=== PATIENT | male | born 1955 | race Caucasian/White ===

== ENCOUNTER 2016-06-21 11:08 | Emergency (ER) | payer MEDICARE, BC ==
[2016-06-21] MEDS: Diph,Pert(Acell),Tet Vac 0.5 ML SYR IM ONE (12:00)
[2016-06-21 13:03] LABS: BASO % 0.3 % (0-6); EOS % 3.6 % (0-6); GRAN % 72.6 % (47-80); HEMATOCRIT 34.9 % (42.0-52.0); HEMOGLOBIN 11.4 gm/dl (14.0-18.0); LYMPH % 14.6 % (16-45); MEAN CELL VOLUME 87.9 fl (81-97); MEAN CORPUSCULAR HEMOGLOBIN 28.7 pg (27-33); MEAN CORPUSCULAR HGB CONC 32.7 g/dl (32-36); MEAN PLATELET VOLUME 10.1 fl (7.4-10.4); MONO % 8.9 % (0-9); PLATELET COUNT 137 K/uL (130-400); RED BLOOD COUNT 3.97 M/uL (4.40-5.70); RED CELL DISTRIBUTION WIDTH 15.5 % (11.5-14.5)
[2016-06-21 13:12] LABS: INR 1.52; PROTHROMBIN TIME (PATIENT) 17.2 SECONDS (9.5-12.1)
[2016-06-21 13:13] LABS: ANION GAP 12.8 (7-16); CARBON DIOXIDE 25.2 mmol/L (22-30); CREATININE 1.5 mg/dL (0.66-1.25)
--- NOTE | 2016-06-21 13:49 | Emergency Department Record ---
History of Present Illness - General Chief complaint: Extremity Problem Stated complaint: STEPPED ON NAIL Time Seen by Provider: 06/21/16 12:36 Source: Patient Mode of Arrival: Ambulatory Limitations: No limitations - History of Present Illness Initial comments: pt stepped on a small nail 2 days ago that went through his shoe. pulled it out. pt did not feel pain as he has neuropathy. today he noted swelling and erythema. he is diabetic and has previously lost a toe MD Complaint: Extremity swelling Onset/Timin -: Days(s) Location: Left, Foot History of Same: No Radiation: Distal Severity scale (1-10): 6 Quality: Aching Consistency: Constant Improves with: Rest Worsens with: Walking, Weight bearing Associated Symptoms: Denies other symptoms - Related Data Home Medications Medication Instructions Recorded Confirmed Last Taken Colchicine 0.6 mg PO QD tab 11/20/15 06/21/16 1 Day Ago Metformin HCl 1,000 mg PO BID tab 11/20/15 06/21/16 1 Day Ago Aspirin [Ecotrin] 325 mg PO DAILY 06/16/16 06/21/16 1 Day Ago Bumetanide 2 mg PO DAILY 06/16/16 06/21/16 1 Day Ago Insulin Glargine,Hum.rec.anlog 80 unit SQ DAILY 06/16/16 06/21/16 1 Day Ago [Tougavino Ferguson] Liraglutide [Victoza 2-Sascha] 1.2 mg SQ DAILY 06/16/16 06/21/16 1 Day Ago Previous Rx's Medication Instructions Recorded Blood Sugar Diagnostic [Blood 1 each MC BID #100 strip 02/27/15 Glucose Test Strip] Docusate Sodium [Colace] 100 mg PO QHS #20 cap 06/16/16 Hydrocodone/Acetaminophen [[place] 1 tab PO Q6H PRN #14 tab 06/16/16 5mg/325mg] Clindamycin HCl [Cleocin HCl] 300 mg PO TID #30 capsule 06/21/16 Allergies Allergy/AdvReac Type Severity Reaction Status Date / Time iodine Allergy Severe ANAPHYLAXIS Verified 06/21/16 11:23 erythromycin base Allergy Mild VOMITING Verified 06/21/16 11:23 [Erythromycin Base] Travel Screening - Travel/Exposure Within Last 30 Days Have you traveled within the last 30 days?: No - Travel/Exposure Within Last Year Have you traveled outside the [place] in the last year?: No - Additonal Travel Details Have you been exposed to anyone with a communicable illness?: No - Travel Symptoms Symptom Screening: None Review of Systems Reviewed: No additional complaints except as noted below Constitutional: Reports: As per HPI. Denies: Chills, Fever, Malaise, Night sweats, Weakness, Weight change Eyes: Reports: As per HPI. Denies: Eye discharge, Eye pain, Photophobia, Vision change ENT: Reports: As per HPI. Denies: Congestion, Dental pain, Ear pain, Epistaxis , Hearing loss, Throat pain Respiratory: Reports: As per HPI. Denies: Cough, Dyspnea, Hemoptysis, Stridor, Wheezes Cardiovascular: Reports: As per HPI. Denies: Arrhythmia, Chest pain, Dyspnea on exertion, Edema, Murmurs, Orthopnea, Palpitations, Paroxysmal nocturnal dyspnea, Rheumatic Fever, Syncope Endocrine: Reports: As per HPI. Denies: Fatigue, Heat or cold intolerance, Polydipsia, Polyuria Gastrointestinal: Reports: As per HPI. Denies: Abdominal pain, Constipation, Diarrhea, Hematemesis, Hematochezia, Melena, Nausea, Vomiting Genitourinary: Reports: As per HPI. Denies: Dysuria, Frequency, Hematuria, Incontinence, Retention, Testicular pain, Testicular mass, Urgency Musculoskeletal: Reports: As per HPI. Denies: Arthralgia, Back pain, Gout, Joint swelling, Myalgia, Neck pain Skin: Reports: As per HPI. Denies: Bruising, Change in color, Change in hair/ nails, Lesions, Pruritus, Rash Neurological: Reports: As per HPI. Denies: Abnormal gait, Confusion, Headache, Numbness, Paresthesias, Seizure, Tingling, Tremors, Vertigo, Weakness Psychiatric: Reports: As per HPI. Denies: Anxiety, Auditory hallucinations, Depression, Homicidal thoughts, Suicidal thoughts, Visual hallucinations Hematological/Lymphatic: Reports: As per HPI. Denies: Anemia, Blood Clots, Easy bleeding, Easy bruising, Swollen glands Past Medical History - SOCIAL HISTORY Smoking Status: Former smoker Alcohol Use: Rare Drug Use: None - RESPIRATORY Hx Respiratory Disorders: Yes Hx Bronchitis: Yes Hx Pneumonia: Yes Hx Pulmonary Embolism: Yes Hx Sleep Apnea: Yes Hx of CPAP: Yes - CARDIOVASCULAR Hx Cardio Disorders: Yes Hx Deep Vein Thrombosis: Yes (with blood clots to lungs) - NEURO Hx Neuro Disorders: Yes Hx Neuropathy: Yes - GI Hx GI Disorders: No - Hx Genitourinary Disorders: No - ENDOCRINE Hx Endocrine Disorders: Yes Hx Diabetes: Yes Hx Thyroid Disease: No - MUSCULOSKELETAL Hx Musculoskeletal Disorders: Yes Hx Arthritis: Yes Hx Gout: Yes - PSYCH Hx Psych Problems: No - HEMATOLOGY/ONCOLOGY Hx Hematology/Oncology Disorders: Yes Hx Clotting Problems: Yes (takes coumadin) Family Medical History Any Significant Family History?: Yes Hx Depression: Brother/Sister Hx Heart Disease: Father, Grandparents Physical Exam - General General Appearance: Alert, Oriented x3, Cooperative, No acute distress - Head Head exam: Normal inspection - Eye Eye exam: Normal appearance, PERRL, EOMI Pupils: Normal accommodation - ENT ENT exam: Normal exam, Mucous membranes moist, Normal external ear exam, Normal orophraynx, TM's normal bilaterally Ear exam: Normal external inspection. negative: External canal tenderness Nasal Exam: Normal inspection. negative: Discharge, Sinus tenderness Mouth exam: Normal external inspection, Tongue normal Teeth exam: Normal inspection. negative: Dental caries Throat exam: Normal inspection. negative: Tonsillar erythema, Tonsillar exudate - Neck Neck exam: Normal inspection, Full ROM. negative: Tenderness - Respiratory Respiratory exam: Normal lung sounds bilaterally. negative: Respiratory distress - Cardiovascular Cardiovascular Exam: Regular rate, Normal rhythm, Normal heart sounds - GI/Abdominal GI/Abdominal exam: Soft, Normal bowel sounds. negative: Tenderness - Rectal Rectal exam: Deferred - exam: Deferred - Extremities Extremities exam: Full ROM, Normal capillary refill, Pedal edema, Tenderness Image of Feet: 1 - puncture wound to foot 2 - swelling of foot and erythema - Back Back exam: Reports: Normal inspection, Full ROM. Denies: Muscle spasm, Rash noted, Tenderness - Neurological Neurological exam: Alert, CN II-XII intact, Normal gait, Oriented X3, Reflexes normal - Psychiatric Psychiatric exam: Normal affect, Normal mood - Skin Skin exam: Dry, Intact, Normal color, Warm Course Vital Signs 06/21/16 11:16 Temperature 97.0 F L Pulse Rate 87 Respiratory 20 Rate Blood Pressure 136/90 Pulse Ox 99 - Reevaluation(s) Reevaluation #1: 06/21/16 14:52 area was sterilely prepped and draped and anesth w lido. incised w 10blade. fb removed, irrigated. tolerated well. d/w dr valadez who will see pt tomorrow Medical Decision Making - Lab Data Result diagrams: 06/21/16 12:50 06/21/16 12:50 Lab Results 06/21/16 06/21/16 06/21/16 Range/Units 12:50 12:50 12:50 WBC 8.0 (4.2-12.2) K/uL RBC 3.97 L (4.40-5.70) M/uL Hgb 11.4 L (14.0-18.0) gm/dl Hct 34.9 L (42.0-52.0) % MCV 87.9 (81-97) fl MCH 28.7 (27-33) pg MCHC 32.7 (32-36) g/dl RDW 15.5 H (11.5-14.5) % Plt Count 137 (130-400) K/uL MPV 10.1 (7.4-10.4) fl Gran % 72.6 (47-80) % Lymphocytes % 14.6 L (16-45) % Monocytes % 8.9 (0-9) % Eosinophils % 3.6 (0-6) % Basophils % 0.3 (0-6) % PT 17.2 H (9.5-12.1) SECONDS INR 1.52 Sodium 142 (136-145) mmol/L Potassium 4.9 (3.5-5.1) mmol/L Chloride 104 (98-107) mmol/L Carbon Dioxide 25.2 (22-30) mmol/L Anion Gap 12.8 (7-16) BUN 28 H (9-20) mg/dL Creatinine 1.5 H (0.66-1.25) mg/dL Estimated GFR 51 ml/min Random Glucose 147 H (70-110) mg/dL Calcium 9.5 (8.5-10.1) mg/dL Disposition Disposition: Discharge (nail puncture foot) Clinical Impression: Puncture wound of foot excluding toes with infection Qualifiers: Encounter type: initial encounter Laterality: left Qualified Code(s): S91.332A - Puncture wound without foreign body, left foot, initial encounter; L08.9 - Local infection of the skin and subcutaneous tissue, unspecified Disposition: Home, Self-Care Condition: (1) Good Instructions: Puncture Wound (ED), Soft Tissue Foreign Body (ED) Additional Instructions: follow up with dr valadez in [place] tomorrow. return sooner if worse. elevate foot. monitor INR Prescriptions: Clindamycin HCl [Cleocin HCl] 300 mg PO TID #30 capsule Referrals: TAE VALADEZ [DOCTOR OF PODIATRY MEDICINE] -
[2016-06-21] MEDS: CLINDAMYCIN 600MG/50ML PREMIX 600 MG in DEXTROSE 1 BAG IV ONE (14:43)
--- NOTE | 2016-06-24 09:13 | RADIOLOGY REPORT ---
EXAM: LEFT FOOT HISTORY: STEPPED ON A NAIL. NAIL WENT IN AT THE DISTAL FIRST METACARPAL AREA. ACUTE LEFT FOOT PAIN. TECHNIQUE: Three views of the left foot were obtained. Comparison: 07/17/15. Encounter: Initial. 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 The bones appear intact. There is no acute fracture or destructive process. Degenerative changes are present at the interphalangeal joint of the great toe as well as at the first metatarsal phalangeal joint. Small periarticular erosions are present at the first MTP and IP joints as well as at the second through fifth metatarsal heads. These areas are all stable. Vascular calcifications are present within the foot. There are small marginal osteophytes in the mid foot and talonavicular joint. A small plantar calcaneal spur is present. There is soft tissue swelling within the forefoot. There is no soft tissue air or radiopaque foreign body. IMPRESSION: 1. NO ACUTE OSSEOUS ABNORMALITY OR FOREIGN BODY. 2. SOFT TISSUE SWELLING. 3. NO ACUTE OSSEOUS ABNORMALITY. 4. STABLE CHRONIC FINDINGS ABOVE. JOB NUMBER: [id number] [facility]
== END 2016-06-21 15:17 | disposition home or self-care (01) ==
LOC: ER 11:08
DX: S91.342A Puncture wound with foreign body, left foot, initial encounter (principal); L08.9 Local infection of the skin and subcutaneous tissue, unspecified; W45.0XXA Nail entering through skin, initial encounter; E11.9 Type 2 diabetes mellitus without complications; Z79.4 Long term (current) use of insulin; Z79.01 Long term (current) use of anticoagulants
CPT/HCPCS: 10120; 80048; 85025; 85610; 90715; 96372; 99284

== ENCOUNTER 2016-12-10 09:18 | Emergency (ER) | payer BC, MEDICARE ==
[2016-12-10] MEDS ORDERED: ASPIRIN 81 MG CHEWABLE TABLET PO ONE (10:01)
[2016-12-10] MEDS ORDERED: NITROGLYCERIN 0.4MG SL TABLET #25 BTL SL PRN (10:01)
[2016-12-10 10:26] LABS: BASO % 0.2 % (0-6); EOS % 0.7 % (0-6); HEMATOCRIT 39.3 % (42.0-52.0); HEMOGLOBIN 12.8 gm/dl (14.0-18.0); LYMPH % 4.1 % (16-45); MEAN CELL VOLUME 85.8 fl (81-97); MEAN CORPUSCULAR HEMOGLOBIN 27.9 pg (27-33); MEAN CORPUSCULAR HGB CONC 32.6 g/dl (32-36); MEAN PLATELET VOLUME 9.9 fl (7.4-10.4); MONO % 6.6 % (0-9); PLATELET COUNT 127 K/uL (130-400); RED BLOOD COUNT 4.58 M/uL (4.40-5.70); RED CELL DISTRIBUTION WIDTH 14.3 % (11.5-14.5); WHITE BLOOD COUNT W/O DIFF 10.7 K/uL (4.2-12.2)
--- NOTE | 2016-12-10 10:26 | Emergency Department Record ---
History of Present Illness - General Chief Complaint: Fever Stated Complaint: TEMP,CYST CREASE OF LT LEG,RT FOOT NAIL PUNCTURE Source: Patient, Family Mode of Arrival: Ambulatory Limitations: No limitations - History of Present Illness Initial Comments: pt has multiple complaints. he has had chest pressure this morning. he stepped on a nail and his foot feels hot. he has a draining abscess in his l groin. he has neuropathy so he did not feel the puncture. pt feels dizzy and weak MD Complaint: Fever, Weakness Onset/Timin -: Days(s) Context: Other Associated Symptoms: Other Treatments Prior to Arrival: Other Treatment Prior to Arrival Comment:: topical antibiotic cream - Related Data Home Medications Medication Instructions Recorded Confirmed Last Taken Colchicine 0.6 mg PO QD tab 11/20/15 12/10/16 12/10/16 Metformin HCl 1,000 mg PO BID tab 11/20/15 12/10/16 12/10/16 Insulin Glargine,Hum.rec.anlog 80 unit SQ DAILY 06/16/16 12/10/16 12/10/16 [Toujeo Solostar] Allopurinol 300 mg PO BID tab 07/05/16 12/10/16 12/10/16 Previous Rx's Medication Instructions Recorded Blood Sugar Diagnostic [Blood 1 each MC BID #100 strip 02/27/15 Glucose Test Strip] Amoxicillin/Potassium Clav 1 tab PO BID #20 tab 12/10/16 [Augmentin 875-125 Tablet] Allergies Allergy/AdvReac Type Severity Reaction Status Date / Time iodine Allergy Severe ANAPHYLAXIS Verified 12/10/16 09:26 erythromycin base Allergy Mild VOMITING Verified 12/10/16 09:26 [Erythromycin Base] Travel Screening - Travel/Exposure Within Last 30 Days Have you traveled within the last 30 days?: No - Travel/Exposure Within Last Year Have you traveled outside the [place] in the last year?: No - Additonal Travel Details Have you been exposed to anyone with a communicable illness?: No - Travel Symptoms Symptom Screening: None Review of Systems Reviewed: No additional complaints except as noted below Constitutional: Reports: As per HPI. Denies: Chills, Fever, Malaise, Night sweats, Weakness, Weight change Eyes: Reports: As per HPI. Denies: Eye discharge, Eye pain, Photophobia, Vision change ENT: Reports: As per HPI. Denies: Congestion, Dental pain, Ear pain, Epistaxis , Hearing loss, Throat pain Respiratory: Reports: As per HPI. Denies: Cough, Dyspnea, Hemoptysis, Stridor, Wheezes Cardiovascular: Reports: As per HPI. Denies: Arrhythmia, Chest pain, Dyspnea on exertion, Edema, Murmurs, Orthopnea, Palpitations, Paroxysmal nocturnal dyspnea, Rheumatic Fever, Syncope Endocrine: Reports: As per HPI. Denies: Fatigue, Heat or cold intolerance, Polydipsia, Polyuria Gastrointestinal: Reports: As per HPI. Denies: Abdominal pain, Constipation, Diarrhea, Hematemesis, Hematochezia, Melena, Nausea, Vomiting Genitourinary: Reports: As per HPI. Denies: Dysuria, Frequency, Hematuria, Incontinence, Retention, Testicular pain, Testicular mass, Urgency Musculoskeletal: Reports: As per HPI. Denies: Arthralgia, Back pain, Gout, Joint swelling, Myalgia, Neck pain Skin: Reports: As per HPI. Denies: Bruising, Change in color, Change in hair/ nails, Lesions, Pruritus, Rash Neurological: Reports: As per HPI. Denies: Abnormal gait, Confusion, Headache, Numbness, Paresthesias, Seizure, Tingling, Tremors, Vertigo, Weakness Psychiatric: Reports: As per HPI. Denies: Anxiety, Auditory hallucinations, Depression, Homicidal thoughts, Suicidal thoughts, Visual hallucinations Hematological/Lymphatic: Reports: As per HPI. Denies: Anemia, Blood Clots, Easy bleeding, Easy bruising, Swollen glands Past Medical History - SOCIAL HISTORY Smoking Status: Former smoker Alcohol Use: None Drug Use: None - RESPIRATORY Hx Respiratory Disorders: Yes Hx Bronchitis: Yes Hx Pneumonia: Yes Hx Pulmonary Embolism: Yes Hx Sleep Apnea: Yes Hx of CPAP: Yes - CARDIOVASCULAR Hx Cardio Disorders: Yes Hx Deep Vein Thrombosis: Yes (with blood clots to lungs) - NEURO Hx Neuro Disorders: Yes Hx Neuropathy: Yes - GI Hx GI Disorders: No - Hx Genitourinary Disorders: No - ENDOCRINE Hx Endocrine Disorders: Yes Hx Diabetes: Yes Hx Thyroid Disease: No - MUSCULOSKELETAL Hx Musculoskeletal Disorders: Yes Hx Arthritis: Yes Hx Gout: Yes - PSYCH Hx Psych Problems: No - HEMATOLOGY/ONCOLOGY Hx Hematology/Oncology Disorders: Yes Hx Clotting Problems: Yes (takes coumadin) Family Medical History Any Significant Family History?: Yes Hx Depression: Brother/Sister Hx Heart Disease: Father, Grandparents Physical Exam - General General Appearance: Alert, Oriented x3, Cooperative, Mild distress - Head Head exam: Normal inspection - Eye Eye exam: Normal appearance, PERRL, EOMI Pupils: Normal accommodation - ENT ENT exam: Normal exam, Mucous membranes moist, Normal external ear exam, Normal orophraynx Ear exam: Normal external inspection. negative: External canal tenderness Nasal Exam: Normal inspection. negative: Discharge, Sinus tenderness Mouth exam: Normal external inspection, Tongue normal Teeth exam: Normal inspection. negative: Dental caries Throat exam: Normal inspection. negative: Tonsillar erythema, Tonsillar exudate - Neck Neck exam: Normal inspection, Full ROM. negative: Tenderness - Respiratory Respiratory exam: Normal lung sounds bilaterally. negative: Respiratory distress - Cardiovascular Cardiovascular Exam: Normal rhythm, Normal heart sounds, Systolic murmur, Tachycardia - GI/Abdominal GI/Abdominal exam: Soft, Normal bowel sounds. negative: Tenderness - Rectal Rectal exam: Deferred - exam: Deferred - Extremities Extremities exam: Normal inspection, Full ROM, Normal capillary refill, Tenderness Image of Full Body: 1 - swelling and erythema w draining abscess Image of Feet: 1 - puncture w surrounding erythema - Back Back exam: Reports: Normal inspection, Full ROM. Denies: Muscle spasm, Rash noted, Tenderness - Neurological Neurological exam: Alert, CN II-XII intact, Normal gait, Oriented X3 - Psychiatric Psychiatric exam: Normal affect, Normal mood - Skin Skin exam: Dry, Intact, Normal color, Warm Course Vital Signs 12/10/16 09:34 Temperature 98.5 F Pulse Rate 103 H Respiratory 20 Rate Blood Pressure 145/83 Pulse Ox 99 - Reevaluation(s) Reevaluation #1: 12/10/16 15:30 pt had no further chest pain. foot xray shows no fb and shows cellulitis but no fluid collection. ct shows cellulitid, no fluid collection as abscess has been and is still draining. unasyn and augmentin were picked as pt is on coumadin Medical Decision Making - Lab Data Result diagrams: 12/10/16 10:15 12/10/16 10:15 Disposition Disposition: Discharge Clinical Impression: Abscess, Cellulitis of groin, Renal insufficiency, Cellulitis of foot without toes Diabetes Qualifiers: Diabetes mellitus type: type 1 Diabetes mellitus complication status: with unspecified complications Qualified Code(s): E10.8 - Type 1 diabetes mellitus with unspecified complications Disposition: Home, Self-Care Condition: (1) Good Instructions: Cellulitis (ED), Abscess (ED), Diabetic Kidney Disease (ED) Additional Instructions: follow up with dr valadez without fail. follow up with family doctor on monday also. elevate foot. recheck tomorrow. return sooner if worse Prescriptions: Amoxicillin/Potassium Clav [Augmentin 875-125 Tablet] 1 tab PO BID #20 tab Forms: Patient Portal Access
[2016-12-10 10:36] LABS: ANION GAP 14.5 (7-16); BLOOD UREA NITROGEN 39 mg/dL (9-20); CARBON DIOXIDE 20.5 mmol/L (22-30); CREATINE PHOSPHOKINASE 260 U/L (55-170); CREATININE 1.7 mg/dL (0.66-1.25); EST GLOMERULAR FILTRATION RATE 44 ml/min; GLUCOSE,RANDOM 233 mg/dL (70-110)
[2016-12-10 10:37] LABS: PLATELET ESTIMATE DECREASED (NORMAL)
[2016-12-10 10:40] LABS: URINE APPEARANCE CLEAR; URINE BILIRUBIN NEGATIVE (NEGATIVE); URINE BLOOD NEGATIVE (NEGATIVE); URINE COLOR YELLOW; URINE KETONE NEGATIVE (NEGATIVE); URINE LEUKOCYTE ESTERASE NEGATIVE (NEGATIVE); URINE NITRITE NEGATIVE (NEGATIVE); URINE PROTEIN NEGATIVE (NEGATIVE); URINE UROBILINOGEN 0.2 E.U./dL (0.20 - 1.00)
[2016-12-10 10:50] LABS: CKMB 2.7 ug/L (0-6)
[2016-12-10 10:58] LABS: TROPONIN I < 0.012 ng/mL (0.00-0.034)
[2016-12-10] MEDS ORDERED: AMPICILLIN SODIUM/SULBACTAM NA 3 G in 0.9 % SODIUM CHLORIDE 100ML 100 ML IVPB ONE (11:30)
[2016-12-10 12:01] LABS: INR 1.36; PROTHROMBIN TIME (PATIENT) 15.4 SECONDS (9.5-12.1)
[2016-12-10 15:01] LABS: CKMB 1.6 ug/L (0-6)
[2016-12-10 15:02] LABS: TROPONIN I < 0.012 ng/mL (0.00-0.034)
--- NOTE | 2016-12-11 10:29 | RADIOLOGY REPORT ---
EXAM: CHEST 2 VIEWS HISTORY: CHEST PAIN AND DIZZINESS. HEART DISEASE. TECHNIQUE: Upright PA and lateral views of the chest are obtained. COMPARISON: Two-view chest radiographic examination dated 02/27/2015. FINDINGS: There has been interval median sternotomy with prosthetic heart valves in place. A left atrial appendage clip is also present. The heart is not enlarged and the pulmonary vasculature is nondilated. No confluent airspace opacity is seen nor is there costophrenic angle blunting or pneumothorax. There are mild degenerative changes of the visualized spine. Minor levocurvature of the thoracic spine is present. IMPRESSION: 1. INTERVAL MEDIAN STERNOTOMY WITH PROSTHETIC HEART VALVES NOW NOTED IN PLACE. NO EVIDENCE OF ACUTE CARDIOPULMONARY DISEASE. NOT MENTIONED ABOVE IS MILD HYPERINFLATION OF THE LUNGS, STABLE. 2. NOT MENTIONED ABOVE IS PLATE AND SCREW FIXATION OF THE LOWER STERNUM/ THORACIC CAGE. A FEW OF THE SCREW HEADS ARE NOT FLUSH WITH THE FIXATION PLATE. CORRELATION WITH PHYSICAL EXAMINATION FOR SCREW LOOSENING IS RECOMMENDED. JOB NUMBER: [id number] [facility]
--- NOTE | 2016-12-11 10:35 | RADIOLOGY REPORT ---
EXAM: FOOT, RIGHT 3 VIEWS HISTORY: STEPPED ON SCREW THREE DAYS AGO. EVALUATE FOR FOREIGN BODY. TECHNIQUE: Three views of the right foot. COMPARISON: Three views of the right foot dated 07/17/2015. FINDINGS: There is diffuse osteopenia. Extensive fixation hardware is noted within the tarsal bones and medial plate and screws extend to the first tarsometatarsal joint. The hardware appears relatively stable. There is osseous fusion of the posterior aspect of the subtalar joint questioned. Flattening of the plantar arch redemonstrated. There are degenerative changes scattered throughout the foot, relatively stable. There is diffuse arterial calcification. A moderate to large plantar calcaneal spur is present. There is soft tissue swelling at the mid plantar aspect of the foot at the puncture site though no foreign body is seen. IMPRESSION: 1. EXTENSIVE POSTSURGICAL CHANGES INVOLVING THE PROXIMAL RIGHT FOOT, DISCUSSED ABOVE WITH ASSOCIATED FLATTENING OF THE PLANTAR ARCH. 2. STABLE DIFFUSE DEGENERATIVE CHANGES. NO ACUTE FRACTURE OR DISLOCATION. 3. PLANTAR CALCANEAL SPUR REDEMONSTRATED. 4. FOCAL SOFT TISSUE SWELLING AND LUCENCY AT THE LEVEL OF PUNCTURE SITE IN THE PLANTAR MIDFOOT WITHOUT FOREIGN BODY. JOB NUMBER: [id number] [facility]
--- NOTE | 2016-12-11 10:43 | CT SCAN REPORT ---
EXAM: CT SCAN PELVIS WO CONTRAST HISTORY: CYST IN LEFT GROIN REGION. TECHNIQUE: Helical CT examination of the pelvis is performed without oral or intravenous contrast administration. COMPARISON: CT abdomen and pelvis without contrast dated 11/17/2008. FINDINGS: No intrapelvic mass, lymphadenopathy, or free pelvic fluid is seen. An IVC filter is partially imaged. No intrinsic urinary bladder abnormality is identified. The prostate gland is mildly enlarged. No dilatation or wall thickening of visualized bowel. The inguinal canals are unremarkable. There is mild subcutaneous fat stranding in the left groin crease with focal skin thickening consistent with cellulitis. No definite abscess though evaluation is somewhat limited by lack of IV contrast utilization. The focal skin thickening measures 15 x 18 mm. No lytic or blastic bone lesion is seen. There are degenerative changes of the visualized lower lumbar spine. IMPRESSION: 1. FOCAL SKIN THICKENING WITH SUBCUTANEOUS FAT STRANDING IN THE LEFT INGUINAL REGION SUSPICIOUS FOR CELLULITIS. NO DEFINITE ABSCESS THOUGH EVALUATION FOR MICROABSCESS IS SOMEWHAT LIMITED BY LACK OF IV CONTRAST UTILIZATION. 2. MILD ENLARGEMENT OF THE PROSTATE. 3. IVC FILTER IN PLACE. JOB NUMBER: [id number] [facility]
== END 2016-12-10 15:44 | disposition home or self-care (01) ==
LOC: ER 09:18
DX: S90.921A Unspecified superficial injury of right foot, initial encounter (principal); L03.115 Cellulitis of right lower limb; L03.114 Cellulitis of left upper limb; E10.40 Type 1 diabetes mellitus with diabetic neuropathy, unspecified; E10.628 Type 1 diabetes mellitus with other skin complications; R07.89 Other chest pain; R42 Dizziness and giddiness; N28.9 Disorder of kidney and ureter, unspecified; Z79.4 Long term (current) use of insulin; Z79.84 Long term (current) use of oral hypoglycemic drugs; Z87.891 Personal history of nicotine dependence; Z79.01 Long term (current) use of anticoagulants; Z86.718 Personal history of other venous thrombosis and embolism
CPT/HCPCS: 99284 ×2; 96374; 82550; 85610; 83874; 82553; 84484; 80048; 81003; 85027; 71020; 73630; 72192; 93005; 93010; J0295

== ENCOUNTER 2017-02-03 21:52 | Emergency (ER) | payer MEDICARE ==
--- NOTE | 2017-02-03 22:22 | Emergency Department Record ---
History of Present Illness - General Chief complaint: Extremity Problem Stated complaint: INFECTION ON TOE Time Seen by Provider: 02/03/17 22:11 Source: Patient Mode of Arrival: Ambulatory Limitations: No limitations - History of Present Illness Initial comments: 61 yo male presents with a blistered area on the right great toe that was noticed tonight. NO fevers. No known trauma. He has a known plantar foot wound that is being cared for by Dr Tsai. No new changes there. NO pus. He had one area of the blister drain clear fluid/ bloody fluid. He is on Augmentin. Foot culture earlier this week was positive for Strep with PCN sensitive. -: Hour(s) Location: Right - Related Data Home Medications Medication Instructions Recorded Confirmed Last Taken Colchicine 0.6 mg PO QD tab 11/20/15 12/10/16 12/10/16 Metformin HCl 1,000 mg PO BID tab 11/20/15 12/10/16 12/10/16 Insulin Glargine,Hum.rec.anlog 80 unit SQ DAILY 06/16/16 12/10/16 12/10/16 [Toujeo Solostar] Allopurinol 300 mg PO BID tab 07/05/16 12/10/16 12/10/16 Previous Rx's Medication Instructions Recorded Blood Sugar Diagnostic [Blood 1 each MC BID #100 strip 02/27/15 Glucose Test Strip] Amoxicillin/Potassium Clav 1 tab PO BID #20 tab 12/10/16 [Augmentin 875-125 Tablet] Allergies Allergy/AdvReac Type Severity Reaction Status Date / Time iodine Allergy Severe ANAPHYLAXIS Verified 02/03/17 22:07 erythromycin base Allergy Mild VOMITING Verified 02/03/17 22:07 [Erythromycin Base] Travel Screening - Travel/Exposure Within Last 30 Days Have you traveled within the last 30 days?: No Review of Systems Constitutional: Denies: Chills, Fever, Malaise, Weakness Eyes: Denies: Eye discharge ENT: Denies: Congestion Respiratory: Denies: Cough Cardiovascular: Denies: Chest pain Endocrine: Denies: Fatigue Gastrointestinal: Denies: Diarrhea, Nausea, Vomiting Genitourinary: Denies: Dysuria, Frequency, Hematuria Musculoskeletal: Denies: Arthralgia (no pain), Back pain, Neck pain Skin: Reports: Change in color, Other (blister) Neurological: Denies: Headache Psychiatric: Denies: Anxiety Hematological/Lymphatic: Denies: Blood Clots, Easy bleeding, Easy bruising Past Medical History - SOCIAL HISTORY Smoking Status: Former smoker Alcohol Use: None Drug Use: None - RESPIRATORY Hx Respiratory Disorders: Yes Hx Bronchitis: Yes Hx Pneumonia: Yes Hx Pulmonary Embolism: Yes Hx Sleep Apnea: Yes Hx of CPAP: Yes - CARDIOVASCULAR Hx Cardio Disorders: Yes Hx Deep Vein Thrombosis: Yes (with blood clots to lungs) - NEURO Hx Neuro Disorders: Yes Hx Neuropathy: Yes - GI Hx GI Disorders: No - Hx Genitourinary Disorders: No - ENDOCRINE Hx Endocrine Disorders: Yes Hx Diabetes: Yes Hx Thyroid Disease: No - MUSCULOSKELETAL Hx Musculoskeletal Disorders: Yes Hx Arthritis: Yes Hx Gout: Yes - PSYCH Hx Psych Problems: No - HEMATOLOGY/ONCOLOGY Hx Hematology/Oncology Disorders: Yes Hx Clotting Problems: Yes (takes coumadin) Family Medical History Any Significant Family History?: Yes Hx Depression: Brother/Sister Hx Heart Disease: Father, Grandparents Physical Exam - General General Appearance: Alert, Oriented x3, Cooperative, No acute distress - Head Head exam: Atraumatic - Eye Eye exam: Normal appearance - ENT ENT exam: Normal exam Ear exam: Normal external inspection Nasal Exam: Normal inspection Mouth exam: Normal external inspection - Neck Neck exam: Normal inspection - Cardiovascular Cardiovascular Exam: Regular rate, Normal rhythm, Normal heart sounds - Extremities Extremities exam: negative: Normal inspection Image of Feet: 1 - soft blister on the top of the toe partially erupted, no pus, serosanguinous fluid. Minimal erythema. No nail (chronic) - Neurological Neurological exam: Alert, Oriented X3 - Psychiatric Psychiatric exam: Normal affect, Normal mood - Skin Skin exam: Erythema Description of rash: Blisters Course Vital Signs 02/03/17 21:59 Temperature 97.5 F L Pulse Rate [ 80 Bilateral] Respiratory 20 Rate Blood Pressure 143/78 [Left Arm] Pulse Ox 97 - Reevaluation(s) Reevaluation #1: 02/03/17 22:55 Debridement clean with Betadine and NS The partial ruptured blister on the great toe was sharply dissected and removed The underlying skin is clean with out signs of infection Antibiotic ointment and non stick dressing were placed The patient was given supplies for home and follow up instructions. Disposition Disposition: Discharge Clinical Impression: Blister of toe Qualifiers: Encounter type: initial encounter Laterality: right Qualified Code(s): S90.424A - Blister (nonthermal), right lesser toe(s), initial encounter Disposition: Home, Self-Care Condition: (1) Good Instructions: Blister (ED) Additional Instructions: Follow up with Dr Tsai on Monday as scheduled Return sooner if red, warm, pus or any new concerns Change the dressing once a day, wash with a mild soap and dry then redress. Continue your antibiotics Forms: Patient Portal Access Time of Disposition: 22:54 Quality - Quality Measures Quality Measures: N/A - Blood Pressure Screening Does Patient Have Any of the Following: No Blood Pressure Classification: Hypertensive Reading Systolic Measurement: 143 Diastolic Measurement: 78 Screening for High Blood Pressure: < Pre-Hypertensive BP, F/U Documented > [ [id number]] Pre-Hypertensive Follow-up Interventions: Referral to alternative/primary care provider.
--- NOTE | 2017-02-06 16:02 | RADIOLOGY REPORT ---
EXAM: TOES, RIGHT HISTORY: PAIN. TECHNIQUE: Three views of the right first digit were performed. FINDINGS: There is postop fixation of the first tarsometatarsal joint space. There is degenerative change with periarticular erosion of the first metatarsal head. There is soft tissue swelling. There is peripheral vascular disease. IMPRESSION: 1. POSTOP FIXATION OF THE FIRST TARSOMETATARSAL JOINT SPACE. 2. DEGENERATIVE CHANGE OF THE METATARSAL HEAD WITH PERIARTICULAR EROSIVE CHANGE. JOB NUMBER: [id number] [facility]
== END 2017-02-03 23:06 | disposition home or self-care (01) ==
LOC: ER 21:52
DX: S90.424A Blister (nonthermal), right lesser toe(s), initial encounter (principal); E11.69 Type 2 diabetes mellitus with other specified complication; Z79.4 Long term (current) use of insulin; Z79.84 Long term (current) use of oral hypoglycemic drugs
CPT/HCPCS: 11042; 73660; 99283; 99284

== ENCOUNTER 2017-11-10 17:14 | Inpatient (IN) | payer MEDICARE ==
[2017-11-10] MEDS ORDERED: 0.9 % SODIUM CHLORIDE 1000ML 1,000 ML IV ONE (17:18)
[2017-11-10] MEDS ORDERED: ACETAMINOPHEN 500 MG TABLET PO ONE (17:23)
--- NOTE | 2017-11-10 17:25 | Emergency Department Record ---
History of Present Illness - General Chief complaint: Male Urogenital Problem Stated complaint: FOUL URINE, ABD PAIN, INC BLOOD GLUCOSE Time Seen by Provider: 11/10/17 17:18 Source: Patient Mode of Arrival: Ambulatory Limitations: No limitations - History of Present Illness Initial comments: 62 yo male presents with 4 days of noting that his urine was offensive to smell. He states the urine is a darker yellow. No blood in the urine. Today he noticed left side pain while mowing. The pain is minimal to gone if sitting still. He developed a fever today as well. No headache, sore throat, chest pain or shortness of breath. The abdominal pain is on the left side and is mild. No extremity symptoms. No history of UTI, renal stones, or urologic surgery. He does take tamulosin for his prostate. TMax at home was 102. Normal appetite. He has a history of CAD,CABG, DM, PE, [place] filter, Gout , Renal insufficiency, appendectomy. PCP is the [facility]. No urinary retention. No changes in bowel movements. MD Complaint: Dysuria, Other (Left flank Pain) -: Days(s) (4) Location: Abdomen Radiation: L flank Severity: Mild Quality: Aching Consistency: Constant Improves with: Rest Worsens with: Movement Reports: Dysuria, Fever - Related Data Home Medications Medication Instructions Recorded Confirmed Last Taken Insulin Glargine,Hum.rec.anlog 52 units SQ BID 11/10/17 11/10/17 11/09/17 [Lantus] Previous Rx's Medication Instructions Recorded Blood Sugar Diagnostic [Blood 1 each MC BID #100 strip 02/27/15 Glucose Test Strip] Allergies Allergy/AdvReac Type Severity Reaction Status Date / Time iodine Allergy Severe ANAPHYLAXIS Verified 11/10/17 17:23 erythromycin base Allergy Mild VOMITING Verified 11/10/17 17:23 [Erythromycin Base] Review of Systems Constitutional: Reports: Chills, Fever. Denies: Malaise, Weakness Eyes: Denies: Eye discharge, Eye pain, Photophobia, Vision change ENT: Denies: Congestion, Throat pain Respiratory: Denies: Cough, Dyspnea, Hemoptysis, Wheezes Cardiovascular: Denies: Chest pain, Palpitations, Syncope Endocrine: Denies: Fatigue Gastrointestinal: Reports: Abdominal pain. Denies: Constipation, Diarrhea, Nausea, Vomiting Genitourinary: Reports: Dysuria. Denies: Hematuria, Incontinence, Retention Musculoskeletal: Denies: Arthralgia, Back pain, Myalgia Skin: Denies: Bruising, Change in color, Rash Neurological: Denies: Headache, Numbness, Weakness Psychiatric: Denies: Anxiety Hematological/Lymphatic: Denies: Easy bleeding, Easy bruising Past Medical History - SOCIAL HISTORY Smoking Status: Former smoker Drug Use: None - RESPIRATORY Hx Respiratory Disorders: Yes Hx Bronchitis: Yes Hx Pneumonia: Yes Hx Pulmonary Embolism: Yes Hx Sleep Apnea: Yes Hx of CPAP: Yes - CARDIOVASCULAR Hx Cardio Disorders: Yes Hx Deep Vein Thrombosis: Yes (with blood clots to lungs) - NEURO Hx Neuro Disorders: Yes Hx Neuropathy: Yes - GI Hx GI Disorders: No - Hx Genitourinary Disorders: No - ENDOCRINE Hx Endocrine Disorders: Yes Hx Diabetes: Yes Hx Thyroid Disease: No - MUSCULOSKELETAL Hx Musculoskeletal Disorders: Yes Hx Arthritis: Yes Hx Gout: Yes - PSYCH Hx Psych Problems: No - HEMATOLOGY/ONCOLOGY Hx Hematology/Oncology Disorders: Yes Hx Clotting Problems: Yes (takes coumadin) Family Medical History Hx Depression: Brother/Sister Hx Heart Disease: Father, Grandparents Physical Exam - General General Appearance: Alert, Oriented x3, Cooperative, No acute distress, Other ( Well appearing, no acute discomfort, conversational) Limitations: No limitations - Head Head exam: Atraumatic - Eye Eye exam: Normal appearance. negative: Conjunctival injection, Scleral icterus - ENT ENT exam: Normal exam, Mucous membranes moist Ear exam: Normal external inspection Nasal Exam: Normal inspection Mouth exam: Normal external inspection Throat exam: Normal inspection - Neck Neck exam: Normal inspection, Full ROM. negative: Tenderness - Respiratory Respiratory exam: Normal lung sounds bilaterally. negative: Respiratory distress - Cardiovascular Cardiovascular Exam: Regular rate, Normal rhythm, Normal heart sounds - GI/Abdominal GI/Abdominal exam: Soft, Tenderness (very minimal tenderness left lateral abdomen, very soft. Abdomen otherwise non tender). negative: Distended, Guarding, Hypoactive bowel sounds, Rebound, Rigid - Rectal Rectal exam: Deferred - exam: Deferred - Extremities Extremities exam: Normal inspection, Full ROM, Normal capillary refill. negative: Tenderness - Back Back exam: Reports: CVA tenderness (L) (minimally tender). Denies: CVA tenderness (R), Paraspinal tenderness, Rash noted, Tenderness, Vertebral tenderness - Neurological Neurological exam: Alert, Normal gait, Oriented X3 - Psychiatric Psychiatric exam: Normal affect, Normal mood - Skin Skin exam: Dry, Intact, Normal color, Warm Course - Reevaluation(s) Reevaluation #1: The labs were reviewed. The CBC demonstrates a WBC count of 12.1 The INR is 3.1 The BUN and CR are 47 and 2.0 (Previous BUN and CR were 32 and 1.5 in September) AG is 18 11/10/17 18:08 11/10/17 18:[address] of the abdomen and pelvis were reviewed. The CT demonstrates diffuse bladder wall thickening suggestive of cystitis, correlate with the UA, mild L sided hydro without any ureteral calculi or obstruction. 11/10/17 18:29 The repeat vitals were reviewed His HR is 97, Temp is now afebrile. BP stable. Awaiting UA 11/10/17 18:33 The UA is Nitrite and LE positive Rocephin ordered 11/10/17 18:34 Given the UTI, dehydration, renal insufficiency I recommend admission, IVF, IV antibiotics. 11/10/17 18:43 I SW Patrica Lucio for admission for antibiotics, IVF, and recheck of labs. Medical Decision Making - Lab Data Result diagrams: 11/10/17 17:25 11/10/17 17:25 Disposition Disposition: Admit Clinical Impression: Renal insufficiency, Urinary tract infection Disposition: Still a Patient at [facility] Decision to Admit: Admit from ER Decision to Admit Date: 11/10/17 Decision to Admit Time: 18:45 Time Discussed w/Accepting Physician: 18:45 Condition: (1) Good Forms: Patient Portal Access Time of Disposition: 18:45 Quality - Quality Measures Quality Measures: N/A - Blood Pressure Screening Does Patient Have Any of the Following: Active Dx of HTN Blood Pressure Classification: Pre-Hypertensive BP Reading Systolic Measurement: 124 Diastolic Measurement: 65 Screening for High Blood Pressure: Patient Exclusion, Hx of HTN [G9744]
[2017-11-10 17:35] LABS: HEMATOCRIT 36.4 % (42.0-52.0); MEAN CELL VOLUME 86.5 fl (81-97); MEAN CORPUSCULAR HEMOGLOBIN 28.5 pg (27-33); MEAN PLATELET VOLUME 9.7 fl (7.4-10.4); PLATELET COUNT 165 K/uL (130-400); RED BLOOD COUNT 4.21 M/uL (4.40-5.70); RED CELL DISTRIBUTION WIDTH 15.9 % (11.5-14.5); WHITE BLOOD COUNT W/O DIFF 12.1 K/uL (4.2-12.2)
[2017-11-10 17:43] LABS: PLATELET ESTIMATE NORMAL (NORMAL)
[2017-11-10 17:45] LABS: BILIRUBIN,TOTAL 1.2 mg/dL (0.2-1.0)
[2017-11-10 17:46] LABS: TOTAL PROTEIN 7.6 g/dL (6.6-8.7)
[2017-11-10 17:50] LABS: INR 3.1; PARTIAL THROMBOPLASTIN TIME 59.1 SECONDS (24.5-39.1); PROTHROMBIN TIME (PATIENT) 34.2 SECONDS (9.5-12.1)
[2017-11-10 17:51] LABS: ALB/GLOB RATIO 1.4 (1.1-1.8); ALBUMIN 4.4 g/dL (4.0-5.0)
[2017-11-10 18:29] LABS: URINE APPEARANCE CLOUDY; URINE BILIRUBIN NEGATIVE (NEGATIVE); URINE BLOOD LARGE (NEGATIVE); URINE COLOR YELLOW; URINE GLUCOSE (UA) NEGATIVE (NEGATIVE); URINE KETONE NEGATIVE (NEGATIVE); URINE LEUKOCYTE ESTERASE LARGE (NEGATIVE); URINE NITRITE POSITIVE (NEGATIVE); URINE PROTEIN TRACE (NEGATIVE); URINE UROBILINOGEN 0.2 E.U./dL (0.20 - 1.00)
[2017-11-10] MEDS ORDERED: CEFTRIAXONE SODIUM 1 GM in 0.9 % SODIUM CHLORIDE 100ML 100 ML IVPB ONE (18:32)
[2017-11-10 18:37] LABS: URINE BACTERIA 4+; URINE EPITHELIAL CELLS NONE SEEN (FEW); URINE RBC >50 (NONE SEEN)
[2017-11-10] MEDS ORDERED: METOPROLOL SUCC 50 MG TABLET PO SCH (19:51)
[2017-11-10] MEDS ORDERED: LIRAGLUTIDE 1.2 MG SQ SCH (19:51)
[2017-11-10] MEDS ORDERED: TAMSULOSIN HCL 0.4 MG CAP.ER.24H PO SCH (19:51)
[2017-11-10] MEDS ORDERED: POTASSIUM CHLORIDE 20 MEQ TABLET PO SCH (19:51)
[2017-11-10] MEDS ORDERED: CEFTRIAXONE SODIUM 1 GM in 0.9 % SODIUM CHLORIDE 100ML 100 ML IVPB SCH (19:51)
[2017-11-10] MEDS: 0.9 % SODIUM CHLORIDE 1000ML 1,000 ML IV PRN (21:37)
[2017-11-10] MEDS ORDERED: PENTOXIFYLLINE 400 MG PO SCH (22:00)
[2017-11-10] MEDS: METFORMIN 500 MG TABLET PO SCH (22:24)
[2017-11-10] MEDS: SIMVASTATIN 20 MG TABLET PO SCH (22:25)
[2017-11-10] MEDS: LEVEMIR FLEXTOUCH 100 UNIT/ML INSULIN PEN SQ SCH ×3 (22:26→22:35)
[2017-11-11] MEDS: 0.9 % SODIUM CHLORIDE 1000ML 1,000 ML IV PRN (05:37)
[2017-11-11 06:29] LABS: BASO % 0.2 % (0-6); EOS % 0.9 % (0-6); HEMATOCRIT 33.4 % (42.0-52.0); HEMOGLOBIN 10.7 gm/dl (14.0-18.0); LYMPH % 5.5 % (16-45); MEAN CELL VOLUME 88.1 fl (81-97); MEAN CORPUSCULAR HEMOGLOBIN 28.2 pg (27-33); MEAN PLATELET VOLUME 9.9 fl (7.4-10.4); MONO % 8.4 % (0-9); PLATELET COUNT 129 K/uL (130-400); RED BLOOD COUNT 3.79 M/uL (4.40-5.70); RED CELL DISTRIBUTION WIDTH 15.7 % (11.5-14.5); WHITE BLOOD COUNT W/O DIFF 10.6 K/uL (4.2-12.2)
[2017-11-11 06:36] LABS: INR 2.6; PROTHROMBIN TIME (PATIENT) 28.2 SECONDS (9.5-12.1)
[2017-11-11 06:38] LABS: CREATININE 1.7 mg/dL (0.7-1.2)
[2017-11-11 07:05] LABS: PLATELET ESTIMATE NORMAL (NORMAL)
--- NOTE | 2017-11-11 08:22 | History & Physical ---
History of Present Illness - Date of Service Date of Service for History & Physical: 11/11/17 - History of Present Illness Admitting Diagnosis: Dehydration, UTI, renal insufficiency History of Present Illness: 62 yo male presents with CC of fever, not feeling well. He has a history of two bioprosthetic valve replacements, T2DM with neuropathy, PE, Jonnie filter, Gout, Renal insufficiency, appendectomy, and is on anticoagulation therapy. He states he has noticed foul smelling odor that is a darker yellow for the past 4 days. No blood in the urine. he noticed left side pain while mowing yesterday. The pain is minimal to gone if sitting still. He developed a fever yesterday as well. No headache, sore throat, chest pain or shortness of breath. No history of UTI, renal stones, or urologic surgery. He does take tamulosin for his prostate. TMax at home was 102. No N/V or diarrhea. While in the ED, Patient had temp of 102, HR 100bpm, BP 124/65, o2 sat was 100% . UA showed large amount of WBC, Bacteria and RBC's. Nitrite and LE positive. BUN and CR elevated from baseline. 47 and 2.0 up from 32 and 1.5 in September. AG of 19. CT abdomen showed diffuse bladder wall thickening suggestive of cystits and mild Left sided hydronephrosis. No evidence of stone or obstruction. Blood and urine cultures were obtained. Patient was started on 1gm Rocephin IV, IV fluids and admitted for UTI with dehydration and LEANNA. 11/11/17- Patient states he is starting to feel better. He denies any more fevers or chills through the night. He says he is urinating more frequently. He says for the past few days he wasn't having too much urine output and what he was putting out was very dark and malodorous. He says he has been urinating at least every 2H now and it is starting to lighten up. He denies headache, upper respiratory symptoms, and the left side pain has resolved. Tolerating fluids orally and denies nausea/vomiting. pcp: Catarina Heard [facility] Travel Screening - Travel/Exposure Within Last 30 Days Have you traveled within the last 30 days?: No - Travel/Exposure Within Last Year Have you traveled outside the [place] in the last year?: No - Additonal Travel Details Have you been exposed to anyone with a communicable illness?: No - Travel Symptoms Symptom Screening: Fever (Subjective), Fever (GT 100.4), Headache, Joint & Muscle Aches, Fatigue, Stomach Pain, Lack of Appetite Review of Systems Constitutional: Reports: Chills, Fever. Denies: Malaise, Weakness Eyes: Denies: Eye discharge, Eye pain, Photophobia, Vision change ENT: Denies: Congestion, Throat pain Respiratory: Denies: Cough, Dyspnea, Hemoptysis, Wheezes Cardiovascular: Denies: Chest pain, Palpitations, Syncope Endocrine: Denies: Fatigue Gastrointestinal: Reports: Abdominal pain. Denies: Constipation, Diarrhea, Nausea, Vomiting Genitourinary: Reports: Dysuria. Denies: Hematuria, Incontinence, Retention Musculoskeletal: Denies: Arthralgia, Back pain, Myalgia Skin: Denies: Bruising, Change in color, Rash Neurological: Denies: Headache, Numbness, Weakness Psychiatric: Denies: Anxiety Hematological/Lymphatic: Denies: Easy bleeding, Easy bruising Past Medical History - SOCIAL HISTORY Smoking Status: Former smoker Alcohol Use: Occasional Drug Use: None - RESPIRATORY Hx Respiratory Disorders: Yes Hx Asthma: No Hx Bronchitis: Yes Hx COPD: No Hx Dyspnea: No Hx Pneumonia: Yes Hx Pulmonary Embolism: Yes Hx Sleep Apnea: Yes Hx Tuberculosis: No Hx of CPAP: Yes - CARDIOVASCULAR Hx Cardio Disorders: Yes Hx Abnormal EKG: No Hx Cardiac Cath: No Hx Chest Pain: No Hx CHF: No Hx Deep Vein Thrombosis: Yes (with blood clots to lungs) Hx Edema: Yes Hx Heart Attack: No Hx Hypertension: No Hx Hypotension: No Hx Irregular Heartbeat: No Hx Palpitations: No Hx Pacemaker/Defib: No Hx Vascular Disease: No Comment:: heart valve replacement - NEURO Hx Neuro Disorders: Yes Hx Brain Tumor: No Hx CVA: No Hx Dementia: No Hx Dizziness: No Hx Headaches: No Hx Neuropathy: Yes Hx Parkinson's Disease: No Hx Seizures: No Hx Speech Problem: No Hx TIA: No - GI Hx GI Disorders: No Hx Abdominal Pain: No Hx Celiac Disease: No Hx Crohn's Disease: No Hx Diverticulitis: No Hx GI Bleed: No Hx Reflux: No Hx Hepatitis/Jaundice: No Hx Hiatal Hernia: No Hx Irritable Bowel: No Hx Liver Disease: No Hx Nausea/Vomiting: No Hx Obstructive Bowel: No Hx Pancreatitis: No Hx Rectal Bleeding: No Hx Ulcer: No Hx Wt Loss/Wt Gain: No Hx of Polyps: No - Hx Genitourinary Disorders: No Hx Bladder Problem: No Hx Dialysis: No Hx Kidney Stones: No Hx Prostate Problems: No Hx Renal Disease: No Hx UTI: No - ENDOCRINE Hx Endocrine Disorders: Yes Hx Diabetes: Yes Hx Thyroid Disease: No - MUSCULOSKELETAL Hx Musculoskeletal Disorders: Yes Hx Arthritis: Yes Hx Back Injury: No Hx Fibromyalgia: No Hx Gout: Yes Hx Musculoskeletal Disease: No Hx Osteoporosis: No - PSYCH Hx Psych Problems: No Hx Anxiety: No Hx Behavior Problems: No Hx Depression: No Hx Emotional Abuse: No Hx Sexual Abuse: No Hx Suicide Attempt: No Major Depressive Episode: No Feelings of Hopelessness: No - HEMATOLOGY/ONCOLOGY Hx Hematology/Oncology Disorders: Yes Hx Clotting Problems: Yes (takes coumadin) Comment:: Jonnie filter (groin) Family Medical History Any Significant Family History?: No Hx Diabetes: Mother, Brother/Sister, Grandparents Hx Heart Disease: Father, Grandparents Hx HTN: Mother Hx Stroke: Brother/Sister H&P Meds/Allergies - Allergies Allergies: Allergies Allergy/AdvReac Type Severity Reaction Status Date / Time iodine Allergy Severe ANAPHYLAXIS Verified 11/10/17 17:23 erythromycin base Allergy Mild VOMITING Verified 11/10/17 17:23 [Erythromycin Base] - Home Medications Home Medications Medication Instructions Recorded Confirmed Last Taken Insulin Glargine,Hum.rec.anlog 52 units SQ BID 11/10/17 11/10/17 11/09/17 [Lantus] Previous Rx's Medication Instructions Recorded Blood Sugar Diagnostic [Blood 1 each MC BID #100 strip 02/27/15 Glucose Test Strip] - Active Medications Active Medications: Current Medications Acetaminophen (Tylenol 500mg Tab) 1,000 mg PO Q6H PRN PRN Reason: PAIN/TEMP Sodium Chloride () 1,000 mls @ 125 mls/hr IV .Q8H PRN PRN Reason: LARGE VOLUME IV Last Admin: 11/11/17 05:37 Dose: 125 mls/hr Ceftriaxone Sodium 1 gm/ (Sodium Chloride) 100 mls @ 200 mls/hr IVPB Q12H NARINDER Stop: 11/16/17 08:31 Insulin Detemir (Levemir Flextouch) 52 unit SQ BID NARINDER Last Admin: 11/10/17 22:35 Dose: Not Given Metformin HCl (Glucophage Ir) 1,000 mg PO BID [facility] Last Admin: 11/10/17 22:24 Dose: 1,000 mg Metoprolol Succinate (Toprol Xl) 50 mg PO QD [facility] Last Admin: 11/10/17 22:24 Dose: 50 mg Non-Formulary Medication (Liraglutide [Victoza 2-Sascha]) 1.2 mg SQ QD [facility] Non-Formulary Medication (Pentoxifylline [Pentoxifylline]) 400 mg PO [facility] Potassium Chloride (Klor-Con) 20 meq PO QD [facility] Simvastatin (Zocor) 20 mg PO QHS [facility] Last Admin: 11/10/17 22:25 Dose: 20 mg Tamsulosin HCl (Flomax) 0.4 mg PO QD [facility] Physical Exam - Vital Signs Vital Signs: Vital Signs - Last 24 Hrs Temp Pulse Pulse Pulse Resp BP BP 11/11/17 03:13 99.2 F 92 H 16 11/10/17 19:51 98.7 F 88 16 117/60 11/10/17 19:16 98.2 F 88 20 100/53 11/10/17 18:27 98.5 F 97 H 19 11/10/17 17:16 102.0 F H 100 H 20 124/65 BP Pulse Ox 11/11/17 03:13 125/57 96 11/10/17 19:51 95 11/10/17 19:16 96 11/10/17 18:27 139/57 97 11/10/17 17:16 100 - General General Appearance: Alert, Oriented x3, Cooperative, No acute distress Limitations: No limitations - Head Head exam: Atraumatic - Eye Eye exam: Normal appearance. negative: Conjunctival injection, Scleral icterus - ENT ENT exam: Normal exam, Mucous membranes moist Ear exam: Normal external inspection Nasal Exam: Normal inspection Mouth exam: Normal external inspection Throat exam: Normal inspection - Neck Neck exam: Normal inspection, Full ROM. negative: Tenderness - Respiratory Respiratory exam: Normal lung sounds bilaterally. negative: Respiratory distress - Cardiovascular Cardiovascular Exam: Regular rate, Normal rhythm, Systolic murmur - GI/Abdominal GI/Abdominal exam: Soft, Normal bowel sounds. negative: Distended, Guarding, Hypoactive bowel sounds, Rebound, Rigid, Tenderness - Rectal Rectal exam: Deferred - exam: Deferred - Extremities Extremities exam: Normal inspection, Full ROM, Normal capillary refill. negative: Tenderness - Back Back exam: Denies: CVA tenderness (R), CVA tenderness (L), Paraspinal tenderness , Rash noted, Tenderness, Vertebral tenderness - Neurological Neurological exam: Alert, Normal gait, Oriented X3 - Psychiatric Psychiatric exam: Normal affect, Normal mood - Skin Skin exam: Dry, Intact, Normal color, Warm Results - Labs Result Diagrams: 11/11/17 06:15 11/11/17 06:15 Labs Last 24 Hours: Laboratory Results - last 24 hr 11/10/17 11/10/17 11/10/17 17:25 17:25 17:25 WBC 12.1 RBC 4.21 L Hgb 12.0 L Hct 36.4 L MCV 86.5 MCH 28.5 MCHC 33.0 RDW 15.9 H Plt Count 165 MPV 9.7 Neutrophils % 86.0 H Lymphocytes % Monocytes % Eosinophils % Not Reportable Basophils % Not Reportable Lymphocytes 10.0 L Monocytes 4.0 Platelet Estimate Normal RBC Morphology Normal PT 34.2 H INR 3.1 APTT 59.1 H Sodium 139 Potassium 4.5 Chloride 98 Carbon Dioxide 22.0 Anion Gap 19.0 H BUN 47 H Creatinine 2.0 H Estimated GFR 36 POC Glucose Random Glucose 184 H Calcium 9.1 Total Bilirubin 1.20 H AST 30 ALT 36 Alkaline Phosphatase 55 Total Protein 7.6 Albumin 4.4 Globulin 3.2 Albumin/Globulin Ratio 1.4 Urine Color Urine Appearance Urine pH Ur Specific [place] Urine Protein Urine Glucose (UA) Urine Ketones Urine Blood Urine Nitrite Urine Bilirubin Urine Urobilinogen Ur Leukocyte Esterase Urine RBC Urine WBC Ur Epithelial Cells Urine Bacteria 11/10/17 11/10/17 11/11/17 18:20 22:00 06:15 WBC 10.6 RBC 3.79 L Hgb 10.7 L Hct 33.4 L MCV 88.1 MCH 28.2 MCHC 32.0 RDW 15.7 H Plt Count 129 L MPV 9.9 Neutrophils % 88.0 H Lymphocytes % 5.5 L Monocytes % 8.4 Eosinophils % 0.9 Basophils % 0.2 Lymphocytes 5.0 L Monocytes 7.0 Platelet Estimate Normal RBC Morphology Normal PT INR APTT Sodium Potassium Chloride Carbon Dioxide Anion Gap BUN Creatinine Estimated GFR POC Glucose 204 H Random Glucose Calcium Total Bilirubin AST ALT Alkaline Phosphatase Total Protein Albumin Globulin Albumin/Globulin Ratio Urine Color Yellow Urine Appearance Cloudy Urine pH 5.5 Ur Specific [place] 1.025 Urine Protein Trace H Urine Glucose (UA) Negative Urine Ketones Negative Urine Blood Large H Urine Nitrite Positive H Urine Bilirubin Negative Urine Urobilinogen 0.2 Ur Leukocyte Esterase Large H Urine RBC >50 Urine WBC Too numerous to cnt Ur Epithelial Cells None seen Urine Bacteria 4+ 11/11/17 11/11/17 06:15 06:15 WBC RBC Hgb Hct MCV MCH MCHC RDW Plt Count MPV Neutrophils % Lymphocytes % Monocytes % Eosinophils % Basophils % Lymphocytes Monocytes Platelet Estimate RBC Morphology PT 28.2 H INR 2.6 APTT Sodium 143 Potassium 4.3 Chloride 104 Carbon Dioxide 20.0 L Anion Gap 19.0 H BUN 42 H Creatinine 1.7 H Estimated GFR 44 POC Glucose Random Glucose 131 H Calcium 8.2 L Total Bilirubin AST ALT Alkaline Phosphatase Total Protein Albumin Globulin Albumin/Globulin Ratio Urine Color Urine Appearance Urine pH Ur Specific [place] Urine Protein Urine Glucose (UA) Urine Ketones Urine Blood Urine Nitrite Urine Bilirubin Urine Urobilinogen Ur Leukocyte Esterase Urine RBC Urine WBC Ur Epithelial Cells Urine Bacteria VTE H&P Assessment - Risk for VTE Risk for VTE: Yes Risk Level: High Risk Assessment Date: 11/11/17 Risk Assessment Time: 18:22 VTE Orders Placed or Will Be Placed: Yes Plan - Inpatient Certification Inpatient Certification: Admit to inpatient care: Based on my medical assessment, after consideration of patient's risk factors (age, co-morbidities and patient presenting symptoms and acuity), I expect that this patient will remain in the hospital greater than or equal to two midnights and that the services needed warrant inpatient care because: Patient Risk Factors: [age, LEANNA on CKD, UTI, T2DM, dehydration] Estimated length of stay: [48-72H] The patient may reasonably be expected to be discharged or transferred to a hospital within 96 hours after admission to [facility]. Services needed: [IV antibiotics, IV fluids] Post hospital care (if known): [] I certify that my determination is in accordance with my understanding of Medicare requirements for reasonable and necessary inpatient services. 11/11/17 18:22 - Detailed Diagnosis and Plan (1) Urinary tract infection Current Visit: Yes Status: Acute Qualifiers: Urinary tract infection type: acute cystitis Base Code: N39.0 - URINARY TRACT INFECTION, SITE NOT SPECIFIED Comment: - UA showing large amounts of bacteria, WBC and urine positive for nitrites and LE. CT abdomen showed diffuse bladder wall thickening and mild left hydronephrosis. WBC trending downwards but likely had some hemoconcentration at admission 2/2 dehydration. Patient has remained afebrile through the night. -continue Rocephin 1gm IV q12h -continue IV fluids with normal saline at 75cc/hr and encourage oral intake -vitals q8H -repeat labs qam (2) LEANNA (acute kidney injury) Current Visit: Yes Status: Acute Base Code: N17.9 - ACUTE KIDNEY FAILURE, UNSPECIFIED Comment: 11/11/17- acute on chronic kidney disease. improving. BUN of 47 and Cr of 2.0 at admission down to 42 and 1.7 respectively. Ratio >20. prerenal insufficiency likely due to dehydration. baseline labs in September showed BUN 32/Cr of 1.5. -continue gentle IV fluid resuscitation with NS at 75cc/hr -obtain weight daily -repeat labs qam (3) T2DM (type 2 diabetes mellitus) Current Visit: Yes Status: Acute Qualifiers: Diabetes mellitus penitentiary insulin use: with penitentiary use Diabetes mellitus complication status: with neurologic complications Diabetes mellitus complication detail: with polyneuropathy Qualified Code(s): E11.42 - Type 2 diabetes mellitus with diabetic polyneuropathy; Z79.4 - skilled nursing (current) use of insulin Base Code: E11.9 - TYPE 2 DIABETES MELLITUS WITHOUT COMPLICATIONS Comment: - BG is well controlled currently with his home regimen. -will continue home medications -accucheck qid (4) DVT prophylaxis Current Visit: Yes Status: Acute Base Code: [id number] - Comment: 11/11/17- patient is high risk for VTE. [place] filter in place. INR was 3.1. His coumadin was held last evening. -resume 7mg coumadin qhs tonight -repeat INR tomorrow (5) Full code status Current Visit: Yes Status: Acute Base Code: Z78.9 - OTHER SPECIFIED HEALTH STATUS Comment: 11/11/17- patient is full code
[2017-11-11] MEDS: CEFTRIAXONE SODIUM 1 GM in 0.9 % SODIUM CHLORIDE 100ML 100 ML IVPB SCH ×2 (09:24→21:07)
[2017-11-11] MEDS: LEVEMIR FLEXTOUCH 100 UNIT/ML INSULIN PEN SQ SCH ×2 (09:28→22:27)
[2017-11-11] MEDS: POTASSIUM CHLORIDE 20 MEQ TABLET PO SCH (09:28)
[2017-11-11] MEDS: TAMSULOSIN HCL 0.4 MG CAP.ER.24H PO SCH (09:28)
[2017-11-11] MEDS: METFORMIN 500 MG TABLET PO SCH ×2 (09:28→22:28)
[2017-11-11] MEDS: ACETAMINOPHEN 500 MG TABLET PO PRN (15:52)
[2017-11-11] MEDS ORDERED: 0.9 % SODIUM CHLORIDE 1000ML 1,000 ML IV PRN (18:12)
[2017-11-11] MEDS ORDERED: WARFARIN 5 MG TAB PO SCH (22:00)
[2017-11-11] MEDS ORDERED: METOPROLOL SUCC 50 MG TABLET PO SCH (22:00)
[2017-11-11] MEDS ORDERED: WARFARIN 1 MG TABLET PO SCH (22:00)
[2017-11-11] MEDS: SIMVASTATIN 20 MG TABLET PO SCH (22:31)
[2017-11-12] MEDS: ACETAMINOPHEN 500 MG TABLET PO PRN ×2 (01:10→10:24)
[2017-11-12 06:14] LABS: BASO % 0.2 % (0-6); EOS % 1.7 % (0-6); GRAN % 83.4 % (47-80); HEMATOCRIT 32.3 % (42.0-52.0); HEMOGLOBIN 10.2 gm/dl (14.0-18.0); LYMPH % 7.6 % (16-45); MEAN CELL VOLUME 88.7 fl (81-97); MEAN CORPUSCULAR HGB CONC 31.6 g/dl (32-36); MEAN PLATELET VOLUME 10.1 fl (7.4-10.4); MONO % 7.1 % (0-9); PLATELET COUNT 118 K/uL (130-400); RED BLOOD COUNT 3.64 M/uL (4.40-5.70); RED CELL DISTRIBUTION WIDTH 15.5 % (11.5-14.5); WHITE BLOOD COUNT W/O DIFF 5.9 K/uL (4.2-12.2)
[2017-11-12 06:18] LABS: INR 1.7; PROTHROMBIN TIME (PATIENT) 18.3 SECONDS (9.5-12.1)
[2017-11-12 06:28] LABS: ALB/GLOB RATIO 1.2 (1.1-1.8); ALBUMIN 3.4 g/dL (4.0-5.0); BILIRUBIN,TOTAL 0.5 mg/dL (0.2-1.0); CREATININE 1.6 mg/dL (0.7-1.2); TOTAL PROTEIN 6.2 g/dL (6.6-8.7)
[2017-11-12] MEDS: CEFTRIAXONE SODIUM 1 GM in 0.9 % SODIUM CHLORIDE 100ML 100 ML IVPB SCH (08:37)
[2017-11-12] MEDS: METFORMIN 500 MG TABLET PO SCH (08:40)
[2017-11-12] MEDS: POTASSIUM CHLORIDE 20 MEQ TABLET PO SCH (08:41)
[2017-11-12] MEDS: TAMSULOSIN HCL 0.4 MG CAP.ER.24H PO SCH (08:41)
--- NOTE | 2017-11-12 09:35 | Discharge Summary ---
Providers Discharge Summary Date: 11/12/17 Date of admission: 11/10/17 19:19 Expected Date of Discharge: 11/12/17 Attending physician: TAYLOR TERRY Primary care physician: Catarina Heard N.P. Physical Exam - Vital Signs Vital Signs: Vital Signs - Last 24 Hrs Temp Pulse Resp BP BP Pulse Ox 11/12/17 06:00 97.9 F 11/12/17 02:10 100.0 F H 11/12/17 01:11 101.7 F H 11/11/17 23:00 100.3 F H 79 16 130/62 11/11/17 18:23 98.6 F 77 18 126/65 98 - General General Appearance: Alert, Oriented x3, Cooperative, No acute distress Limitations: No limitations - Head Head exam: Atraumatic - Eye Eye exam: Normal appearance. negative: Conjunctival injection, Scleral icterus - ENT ENT exam: Normal exam, Mucous membranes moist Ear exam: Normal external inspection Nasal Exam: Normal inspection Mouth exam: Normal external inspection Throat exam: Normal inspection - Neck Neck exam: Normal inspection, Full ROM. negative: Tenderness - Respiratory Respiratory exam: Normal lung sounds bilaterally. negative: Respiratory distress - Cardiovascular Cardiovascular Exam: Regular rate, Normal rhythm, Systolic murmur - GI/Abdominal GI/Abdominal exam: Soft, Normal bowel sounds. negative: Distended, Guarding, Hypoactive bowel sounds, Rebound, Rigid, Tenderness - Rectal Rectal exam: Deferred - exam: Deferred - Extremities Extremities exam: Normal inspection, Full ROM, Normal capillary refill. negative: Tenderness - Back Back exam: Denies: CVA tenderness (R), CVA tenderness (L), Paraspinal tenderness , Rash noted, Tenderness, Vertebral tenderness - Neurological Neurological exam: Alert, Normal gait, Oriented X3 - Psychiatric Psychiatric exam: Normal affect, Normal mood - Skin Skin exam: Dry, Intact, Normal color, Warm Hospitalization - Hospitalization Admission Diagnosis: Dehydration, UTI, renal insufficiency - Problem List/Discharge Diagnosis (1) Urinary tract infection Current Visit: Yes Status: Acute Discharge Diagnosis: Urinary tract infection type: acute cystitis Base Code: N39.0 - URINARY TRACT INFECTION, SITE NOT SPECIFIED Comment: - improving. Lab states prelim blood culture shows no growth. Urine culture was apparently just being plated so don't have those results. Tmax of 101 responded well to tylenol last night and has been afebrile since. WBC count wnl. -will transition to augmentin 875/125mg po bid for 14 more days. [facility] abx profile shows good sensitivity with E.coli and klebsiella -will plan to discharge home today. [facility] family practice will contact patient on Monday to set up follow up apt. -will contact patient once urine culture returns if need for change in abx therapy -discussed reasons to return to ED including N/V, return of flank pain, uncontrolled fever, chills or decreased urine output (2) LEANNA (acute kidney injury) Current Visit: Yes Status: Acute Base Code: N17.9 - ACUTE KIDNEY FAILURE, UNSPECIFIED Comment: 11/12/17- resolved. BUN of 37 and Cr of 1.6. baseline labs in September showed BUN 32/Cr of 1.5. -continue adequate oral hydration as outpatient (3) T2DM (type 2 diabetes mellitus) Current Visit: Yes Status: Acute Discharge Diagnosis: Diabetes mellitus intermediate manager insulin use: with intermediate manager use Diabetes mellitus complication status: with neurologic complications Diabetes mellitus complication detail: with polyneuropathy Qualified Code(s): E11.42 - Type 2 diabetes mellitus with diabetic polyneuropathy; Z79.4 - nursing home (current) use of insulin Base Code: E11.9 - TYPE 2 DIABETES MELLITUS WITHOUT COMPLICATIONS Comment: - BG is well controlled currently with his home regimen. -will continue home medications -[facility] (4) DVT prophylaxis Current Visit: Yes Status: Acute Base Code: [id number] - Comment: 11/12/17- patient is high risk for VTE. Lodi filter in place. INR of 1.7 after he had his coumadin held two nights ago. He received his usual 7mg last evening. -gave theraputic dose of lovenox 130mg SC today -continue coumadin qhs tonight -repeat INR in 48 hours (monday) as outpatient. (5) Full code status Current Visit: Yes Status: Acute Base Code: Z78.9 - OTHER SPECIFIED HEALTH STATUS Comment: 11/12/17- patient is full code - Hospitalization Course Disposition: Home, Self-Care Hospital Course: 62 yo male presents with CC of fever, not feeling well. He has a history of two bioprosthetic valve replacements, T2DM with neuropathy, PE, Lodi filter, Gout, Renal insufficiency, appendectomy, and is on anticoagulation therapy. He states he has noticed foul smelling odor that is a darker yellow for the past 4 days. No blood in the urine. he noticed left side pain while mowing yesterday. The pain is minimal to gone if sitting still. He developed a fever yesterday as well. No headache, sore throat, chest pain or shortness of breath. No history of UTI, renal stones, or urologic surgery. He does take tamulosin for his prostate. TMax at home was 102. No N/V or diarrhea. While in the ED, Patient had temp of 102, HR 100bpm, BP 124/65, o2 sat was 100% . UA showed large amount of WBC, Bacteria and RBC's. Nitrite and LE positive. BUN and CR elevated from baseline. 47 and 2.0 up from 32 and 1.5 in September. AG of 19. CT abdomen showed diffuse bladder wall thickening suggestive of cystits and mild Left sided hydronephrosis. No evidence of stone or obstruction. Blood and urine cultures were obtained. Patient was started on 1gm Rocephin IV, IV fluids and admitted for UTI with dehydration and LEANNA. 11/11/17- Patient states he is starting to feel better. He denies any more fevers or chills through the night. He says he is urinating more frequently. He says for the past few days he wasn't having too much urine output and what he was putting out was very dark and malodorous. He says he has been urinating at least every 2H now and it is starting to lighten up. He denies headache, upper respiratory symptoms, and the left side pain has resolved. Tolerating fluids orally and denies nausea/vomiting. 11/12/17- Patient states he is feeling much better than he did Monday. he is urinating frequently and says the color is much winderman and smell has resolved. No further left flank or abdominal pain. He does report a generalized headache off and on since Monday but has been well controlled with tylenol. He has been without his glasses during his stay in the hospital and has had increased eye strain. He denies any weakness, fatigue, chills, fever currently. Had normal BM this morning. Feeling ready to go home. pcp: Catarina Heard [facility] Procedures: Imaging and X-Rays 11/10/17 17:19 ABDOMEN/PELVIS WO CONTRAST [CT] Stat Cardiology Procedures 11/10/17 19:51 Mud Boss .Continuous Abnormal Labs: Abnormal Lab Results 11/10/17 11/10/17 11/10/17 Range/Units 17:25 17:25 17:25 RBC 4.21 L (4.40-5.70) M/uL Hgb 12.0 L (14.0-18.0) gm/dl Hct 36.4 L (42.0-52.0) % MCHC (32-36) g/dl RDW 15.9 H (11.5-14.5) % Plt Count (130-400) K/uL Gran % (47-80) % Neutrophils % 86.0 H (47-80) % Lymphocytes % (16-45) % Lymphocytes 10.0 L (16-45) % PT 34.2 H (9.5-12.1) SECONDS APTT 59.1 H (24.5-39.1) SECONDS Carbon Dioxide (22-29) mmol/L Anion Gap 19.0 H (7-16) BUN 47 H (8-23) mg/dL Creatinine 2.0 H (0.7-1.2) mg/dL POC Glucose (70-110) mg/dL Random Glucose 184 H (74-109) mg/dL Calcium (8.8-10.2) mg/dL Total Bilirubin 1.20 H (0.2-1.0) mg/dL Total Protein (6.6-8.7) g/dL Albumin (4.0-5.0) g/dL Urine Protein (NEGATIVE) Urine Blood (NEGATIVE) Urine Nitrite (NEGATIVE) Ur Leukocyte Esterase (NEGATIVE) 11/10/17 11/10/17 11/11/17 Range/Units 18:20 22:00 06:15 RBC 3.79 L (4.40-5.70) M/uL Hgb 10.7 L (14.0-18.0) gm/dl Hct 33.4 L (42.0-52.0) % MCHC (32-36) g/dl RDW 15.7 H (11.5-14.5) % Plt Count 129 L (130-400) K/uL Gran % (47-80) % Neutrophils % 88.0 H (47-80) % Lymphocytes % 5.5 L (16-45) % Lymphocytes 5.0 L (16-45) % PT (9.5-12.1) SECONDS APTT (24.5-39.1) SECONDS Carbon Dioxide (22-29) mmol/L Anion Gap (7-16) BUN (8-23) mg/dL Creatinine (0.7-1.2) mg/dL POC Glucose 204 H (70-110) mg/dL Random Glucose (74-109) mg/dL Calcium (8.8-10.2) mg/dL Total Bilirubin (0.2-1.0) mg/dL Total Protein (6.6-8.7) g/dL Albumin (4.0-5.0) g/dL Urine Protein Trace H (NEGATIVE) Urine Blood Large H (NEGATIVE) Urine Nitrite Positive H (NEGATIVE) Ur Leukocyte Esterase Large H (NEGATIVE) 11/11/17 11/11/17 11/11/17 Range/Units 06:15 06:15 07:30 RBC (4.40-5.70) M/uL Hgb (14.0-18.0) gm/dl Hct (42.0-52.0) % MCHC (32-36) g/dl RDW (11.5-14.5) % Plt Count (130-400) K/uL Gran % (47-80) % Neutrophils % (47-80) % Lymphocytes % (16-45) % Lymphocytes (16-45) % PT 28.2 H (9.5-12.1) SECONDS APTT (24.5-39.1) SECONDS Carbon Dioxide 20.0 L (22-29) mmol/L Anion Gap 19.0 H (7-16) BUN 42 H (8-23) mg/dL Creatinine 1.7 H (0.7-1.2) mg/dL POC Glucose 119 H (70-110) mg/dL Random Glucose 131 H (74-109) mg/dL Calcium 8.2 L (8.8-10.2) mg/dL Total Bilirubin (0.2-1.0) mg/dL Total Protein (6.6-8.7) g/dL Albumin (4.0-5.0) g/dL Urine Protein (NEGATIVE) Urine Blood (NEGATIVE) Urine Nitrite (NEGATIVE) Ur Leukocyte Esterase (NEGATIVE) 11/12/17 11/12/17 11/12/17 Range/Units 06:00 06:00 06:00 RBC 3.64 L (4.40-5.70) M/uL Hgb 10.2 L (14.0-18.0) gm/dl Hct 32.3 L (42.0-52.0) % MCHC 31.6 L (32-36) g/dl RDW 15.5 H (11.5-14.5) % Plt Count 118 L (130-400) K/uL Gran % 83.4 H (47-80) % Neutrophils % (47-80) % Lymphocytes % 7.6 L (16-45) % Lymphocytes (16-45) % PT 18.3 H (9.5-12.1) SECONDS APTT (24.5-39.1) SECONDS Carbon Dioxide 20.0 L (22-29) mmol/L Anion Gap (7-16) BUN 37 H (8-23) mg/dL Creatinine 1.6 H (0.7-1.2) mg/dL POC Glucose (70-110) mg/dL Random Glucose (74-109) mg/dL Calcium 8.0 L (8.8-10.2) mg/dL Total Bilirubin (0.2-1.0) mg/dL Total Protein 6.2 L (6.6-8.7) g/dL Albumin 3.4 L (4.0-5.0) g/dL Urine Protein (NEGATIVE) Urine Blood (NEGATIVE) Urine Nitrite (NEGATIVE) Ur Leukocyte Esterase (NEGATIVE) Condition at Discharge: (2) Stable Discharge Medications - Discharge Medications Prescriptions: Amoxicillin/Potassium Clav [Augmentin 875-125 Tablet] 1 each PO BID #28 tablet Home Medications: Ambulatory Orders Blood Sugar Diagnostic [Blood Glucose Test Strip] 1 each MC BID #100 strip 02/27 [Last Taken 11/10/17] Metformin HCl 1,000 mg PO BID tab 11/20/15 [Last Taken 11/10/17] Allopurinol 300 mg PO QD tab 09/25/17 [Last Taken 11/10/17] Cholecalciferol (Vitamin D3) [Vitamin D3] 2,000 unit PO DAILY #30 tab 09/25/17 [ Last Taken 11/10/17] Insulin Glargine,Hum.rec.anlog [Lantus] 52 units SQ BID 11/10/17 [Last Taken ] Liraglutide [Victoza 2-Sascha] 1.2 mg SQ QD ml 11/10/17 [Last Taken 11/10/17] Amoxicillin/Potassium Clav [Augmentin 875-125 Tablet] 1 each PO BID #28 tablet 11/12/17 [Last Taken Unknown] Discharge Plan - Discharge Instructions Activity at Discharge: Resume Usual Activities As Tolerated Diet at Discharge: Diabetic Diet Instructions: Urinary Tract Infection in Men (DC) Additional Instructions: The [facility] will be contacting you to schedule hospital follow up appointment Continue augmentin 875/125mg by mouth twice daily for 14 more days May use tylenol OTC as needed for headache/fever Continue adequate intake of clear liquids Please call with any questions or concerns Return to ED for any new or worsening symptoms. Quality Measures - Quality Measures Quality Measures: Documentation of Current Medications in Medical Record, Screening for High Blood Pressure and F/U Documented - Current Medications Quality Measure: Measure #130: Documentation of Current Medications Documentation of Current Medications: <Current Medications Documented/Reviewed> [G8427] - Blood Pressure Screening Quality Measure: Screening for High Blood Pressure and Follow-Up Documented Does Patient Have Any of the Following: Active Dx of HTN Blood Pressure Classification: Normal BP Reading Systolic Measurement: 100 Diastolic Measurement: 53 Screening for High Blood Pressure: Patient Exclusion, Hx of HTN [G9744] - Elder Abuse Suspicion Index EASI Reference Information: Mir MORE, Karol C, Sheila D, Marcie Ghosh.Development and validation of a tool to assist physicians identification of elder abuse: The Elder Abuse Suspicion Index (EASI ). Journal of Elder Abuse and Neglect, 2008; 20 (3): 276-300.
[2017-11-12] MEDS ORDERED: ENOXAPARIN 100 MG/ML SYR SQ ONE (10:04)
--- NOTE | 2017-11-12 22:48 | CT SCAN REPORT ---
EXAM: CT SCAN ABDOMEN/PELVIS WO CONTRAST HISTORY: LEFT FLANK PAIN. TECHNIQUE: CT abdomen and pelvis performed without oral or IV contrast. This limits evaluation of bowel and solid visceral organs. COMPARISON: Renal ultrasound from 07/18/17. FINDINGS: Limited evaluation of the lung bases is unremarkable. Osseous structures are grossly intact. Fatty infiltrative change to the liver. The spleen is enlarged at 16 cm. Limited evaluation of the adrenal glands and pancreas is unremarkable. The gallbladder is present. Postsurgical changes of the inferior vena cava. Mild left-sided hydronephrosis and hydroureter, without a discrete obstructing calculus. However, there is diffuse urinary bladder wall thickening, which may reflect nonspecific cystitis. A recently passed stone could also have a similar appearance. No definite urinary tract calculi. No gross evidence for bowel obstruction. The prostate is enlarged. Correlate with PSA levels. No free air or free fluid. IMPRESSION: 1. NO DISCRETE URINARY TRACT CALCULUS. MILD LEFT-SIDED HYDRONEPHROSIS/ HYDROURETER. DIFFUSE URINARY BLADDER WALL THICKENING. CORRELATE WITH URINALYSIS. 2. ENLARGEMENT OF THE PROSTATE. CORRELATE WITH PSA LEVELS. 3. FATTY INFILTRATIVE CHANGE TO THE LIVER. SPLENOMEGALY AT 16 CM. JOB NUMBER: [id number] [facility]
== END 2017-11-12 12:10 | disposition home or self-care (01) | DRG 690 ==
LOC: ER 17:14 → MEDSURG 19:19
PROVIDERS: ADMIT Internal Medicine; ATTEND Internal Medicine
DX: N39.0 Urinary tract infection, site not specified (principal); E86.0 Dehydration; R42 Dizziness and giddiness; N28.9 Disorder of kidney and ureter, unspecified; R50.9 Fever, unspecified; E11.9 Type 2 diabetes mellitus without complications; Z79.4 Long term (current) use of insulin; I25.10 Atherosclerotic heart disease of native coronary artery without angina pectoris; G62.9 Polyneuropathy, unspecified; M19.90 Unspecified osteoarthritis, unspecified site; Z86.718 Personal history of other venous thrombosis and embolism; Z79.01 Long term (current) use of anticoagulants; Z86.711 Personal history of pulmonary embolism; M10.9 Gout, unspecified; Z87.891 Personal history of nicotine dependence
CPT/HCPCS: 36416; 74176; 80048; 80053; 81001; 82948; 85025; 85027; 85610; 85730; 96365; 99223; 99239; 99285; J7030

== ENCOUNTER 2018-05-26 23:07 | Emergency (ER) | payer MEDICARE ==
[2018-05-26] MEDS ORDERED: HYDROCODONE/APAP 7.5/325MG TABLET PO ONE (23:25)
--- NOTE | 2018-05-26 23:33 | Emergency Department Record ---
History of Present Illness - General Chief complaint: Lower Extremity Pain Stated complaint: R KNEE PAINFUL,POSS GOUT Time Seen by Provider: 05/26/18 23:12 Source: Patient Mode of Arrival: Ambulatory Limitations: No limitations - History of Present Illness Initial comments: 63 yo male presents to ED for evaluation of pain and swelling to the right knee that began earlier today. Patient reports that his pain symptoms began earlier today, reports similar symptoms related to gout previously. Patient also reports history of DVT necessitating astrid filter placement, is currently on warfarin as well. Patient denies specific injury, fevers, chills, or redness to the area. MD Complaint: Extremity swelling, Joint pain Onset/Timin -: Days(s) Location: Right, Knee -: Yes Myalgia Radiation: Distal Quality: Aching Consistency: Constant Improves with: Nothing Worsens with: Palpation, Walking, Weight bearing Associated Symptoms: Other - Related Data Previous Rx's Medication Instructions Recorded Blood Sugar Diagnostic [Blood 1 each MC BID #100 strip 02/27/15 Glucose Test Strip] Allergies Allergy/AdvReac Type Severity Reaction Status Date / Time iodine Allergy Severe ANAPHYLAXIS Verified 05/26/18 23:11 erythromycin base Allergy Mild VOMITING Verified 05/26/18 23:11 [Erythromycin Base] Travel Screening - Travel/Exposure Within Last 30 Days Have you traveled within the last 30 days?: No - Travel Symptoms Symptom Screening: None Review of Systems Constitutional: Denies: Chills, Fever, Malaise, Night sweats Eyes: Denies: Eye discharge, Eye pain ENT: Denies: Congestion, Ear pain, Epistaxis Respiratory: Denies: Cough, Dyspnea Cardiovascular: Denies: Chest pain, Dyspnea on exertion Endocrine: Denies: Fatigue, Heat or cold intolerance Gastrointestinal: Denies: Abdominal pain, Nausea, Vomiting Genitourinary: Denies: Incontinence, Retention Musculoskeletal: Reports: Gout, Joint swelling. Denies: Arthralgia, Back pain Skin: Denies: Bruising, Change in color Neurological: Denies: Abnormal gait, Confusion, Headache, Seizure Psychiatric: Denies: Anxiety Hematological/Lymphatic: Reports: Blood Clots, Easy bleeding, Easy bruising. Denies: Anemia Past Medical History - SOCIAL HISTORY Smoking Status: Former smoker - RESPIRATORY Hx Respiratory Disorders: Yes Hx Asthma: No Hx Bronchitis: Yes Hx COPD: No Hx Dyspnea: No Hx Pneumonia: Yes Hx Pulmonary Embolism: Yes Hx Sleep Apnea: Yes Hx Tuberculosis: No Hx of CPAP: Yes - CARDIOVASCULAR Hx Cardio Disorders: Yes Hx Abnormal EKG: No Hx Cardiac Cath: No Hx Chest Pain: No Hx CHF: No Hx Deep Vein Thrombosis: Yes (with blood clots to lungs) Hx Edema: Yes Hx Heart Attack: No Hx Hypertension: No Hx Hypotension: No Hx Irregular Heartbeat: No Hx Palpitations: No Hx Pacemaker/Defib: No Hx Vascular Disease: No Comment:: heart valve replacement - NEURO Hx Neuro Disorders: Yes Hx Brain Tumor: No Hx CVA: No Hx Dementia: No Hx Dizziness: No Hx Headaches: No Hx Neuropathy: Yes Hx Parkinson's Disease: No Hx Seizures: No Hx Speech Problem: No Hx TIA: No - GI Hx GI Disorders: No Hx Abdominal Pain: No Hx Celiac Disease: No Hx Crohn's Disease: No Hx Diverticulitis: No Hx GI Bleed: No Hx Reflux: No Hx Hepatitis/Jaundice: No Hx Hiatal Hernia: No Hx Irritable Bowel: No Hx Liver Disease: No Hx Nausea/Vomiting: No Hx Obstructive Bowel: No Hx Pancreatitis: No Hx Rectal Bleeding: No Hx Ulcer: No Hx Wt Loss/Wt Gain: No Hx of Polyps: No - Hx Genitourinary Disorders: No Hx Bladder Problem: No Hx Dialysis: No Hx Kidney Stones: No Hx Prostate Problems: No Hx Renal Disease: No Hx UTI: No - ENDOCRINE Hx Endocrine Disorders: Yes Hx Diabetes: Yes Hx Thyroid Disease: No - MUSCULOSKELETAL Hx Musculoskeletal Disorders: Yes Hx Arthritis: Yes Hx Back Injury: No Hx Fibromyalgia: No Hx Gout: Yes Hx Musculoskeletal Disease: No Hx Osteoporosis: No - PSYCH Hx Psych Problems: No Hx Anxiety: No Hx Behavior Problems: No Hx Depression: No Hx Emotional Abuse: No Hx Sexual Abuse: No Hx Suicide Attempt: No - HEMATOLOGY/ONCOLOGY Hx Hematology/Oncology Disorders: Yes Hx Clotting Problems: Yes (takes coumadin) Comment:: Astrid filter (groin) Family Medical History Any Significant Family History?: Yes Hx Diabetes: Mother, Brother/Sister, Grandparents Hx Heart Disease: Father, Grandparents Hx HTN: Mother Hx Stroke: Brother/Sister Physical Exam - General General Appearance: Alert, Oriented x3, Cooperative, Moderate distress Limitations: No limitations - Head Head exam: Atraumatic, Normocephalic, Normal inspection Head exam detail: negative: Abrasion, Contusion, Russo's sign, General tenderness, Hematoma, Laceration - Eye Eye exam: Normal appearance. negative: Conjunctival injection, Periorbital swelling, Periorbital tenderness, Scleral icterus - ENT Ear exam: negative: Auricular hematoma, Auricular trauma Nasal Exam: negative: Active bleeding, Discharge, Dried blood, Foreign body Mouth exam: negative: Drooling, Laceration, Muffled voice, Tongue elevation - Neck Neck exam: Normal inspection. negative: Meningismus, Tenderness - Respiratory Respiratory exam: Normal lung sounds bilaterally. negative: Rales, Respiratory distress, Rhonchi, Stridor - Cardiovascular Cardiovascular Exam: Regular rate, Normal rhythm, Normal heart sounds - GI/Abdominal GI/Abdominal exam: Soft. negative: Rebound, Rigid, Tenderness - Rectal Rectal exam: Deferred - exam: Deferred - Extremities Extremities exam: Calf tenderness, Joint swelling, Pedal edema, Tenderness, Other (TTP to the popliteal region with diffuse swelling of the right knee and calf on examination) - Back Back exam: Denies: CVA tenderness (R), CVA tenderness (L) - Neurological Neurological exam: Alert, Oriented X3 - Psychiatric Psychiatric exam: Normal affect, Normal mood - Skin Skin exam: Normal color. negative: Abrasion Type of lesion: negative: abrasion Course - Reevaluation(s) Reevaluation #1: 05/26/18 23:34 Case was discussed with Dr. Santos, will accept the patient for US doppler to exclude DVT. Will obtain laboratory studies prior to transfer, and administer analgesia for pain symptoms. Reevaluation #2: 05/27/18 00:12 Laboratory studies were reviewed: GFR 36 INR 3.0 Uric Acid 6.2 CRP 0.25 Glucose 333 Will initiate transfer by private car to [facility] for doppler examination. Medical Decision Making - Lab Data Result diagrams: 05/26/18 23:38 05/26/18 23:38 Disposition Disposition: Transfer Clinical Impression: Pain of right lower extremity Transfer To: [facility] Reason For Transfer: Doppler right lower extremity Accepting Physician: Danielle Time Discussed w/Accepting Physician: 23:25 Condition: (2) Stable Forms: Patient Portal Access Time of Disposition: 00:14 Quality - Quality Measures Quality Measures: N/A - Blood Pressure Screening Does Patient Have Any of the Following: No Blood Pressure Classification: Hypertensive Reading Systolic Measurement: 149 Diastolic Measurement: 72 Screening for High Blood Pressure: < First Hypertensive BP, F/U Documented > [ G8950] First Hypertensive Follow-up Interventions: Referral to alternative/primary care provider.
[2018-05-26 23:44] LABS: BASO % 0.5 % (0-6); EOS % 3.6 % (0-6); GRAN % 65.2 % (47-80); HEMATOCRIT 37.1 % (42.0-52.0); HEMOGLOBIN 12.4 gm/dl (14.0-18.0); LYMPH % 23.6 % (16-45); MEAN CELL VOLUME 86.3 fl (81-97); MEAN CORPUSCULAR HEMOGLOBIN 28.8 pg (27-33); MEAN CORPUSCULAR HGB CONC 33.4 g/dl (32-36); MEAN PLATELET VOLUME 9.6 fl (7.4-10.4); MONO % 7.1 % (0-9); PLATELET COUNT 177 K/uL (130-400); RED CELL DISTRIBUTION WIDTH 15.2 % (11.5-14.5); WHITE BLOOD COUNT W/O DIFF 6.6 K/uL (4.2-12.2)
[2018-05-26 23:55] LABS: PROTHROMBIN TIME (PATIENT) 29.3 SECONDS (9.5-12.1)
[2018-05-26 23:58] LABS: BILIRUBIN,TOTAL 0.5 mg/dL (0.2-1.0); CREATININE 1.9 mg/dL (0.7-1.2); TOTAL PROTEIN 7.4 g/dL (6.6-8.7)
[2018-05-27 00:03] LABS: ALB/GLOB RATIO 1.5 (1.1-1.8); ALBUMIN 4.4 g/dL (4.0-5.0); C-REACTIVE PROTEIN 0.25 mg/dL (<0.5)
[2018-05-27 00:18] LABS: ERYTHROCYTE SEDIMENTATION RATE 16 mm/hr (0-20)
== END 2018-05-27 00:25 | disposition short-term general hospital (02) ==
LOC: ER 23:07
DX: M25.561 Pain in right knee (principal); E11.9 Type 2 diabetes mellitus without complications; Z79.4 Long term (current) use of insulin; Z86.718 Personal history of other venous thrombosis and embolism; Z87.891 Personal history of nicotine dependence; Z79.01 Long term (current) use of anticoagulants
CPT/HCPCS: 80053; 84550; 85025; 85610; 85651; 86140; 99283

== ENCOUNTER 2018-09-12 11:22 | Emergency (ER) | payer MEDICARE ==
--- NOTE | 2018-09-12 12:38 | Emergency Department Record ---
History of Present Illness - General Chief complaint: Extremity Problem Stated complaint: RIGHT ARM BRUISING Time Seen by Provider: 09/12/18 12:02 Source: Patient Mode of Arrival: Ambulatory Limitations: No limitations - History of Present Illness Initial comments: The patient is here due to R bicep area pain and swelling for the last 2 days. He was struggling to take a bolt off and felt a pop and pain in the R bicep area. Since he has had mild pain and bruising. He is concerned he has a bicep tendon rupture. MD Complaint: Extremity pain Onset/Timin -: Days(s) Location: Right, Arm History of Same: No Severity scale (1-10): 3 Quality: Other Consistency: Constant Improves with: Nothing Worsens with: Nothing Associated Symptoms: Denies other symptoms - Related Data Home Medications Medication Instructions Recorded Confirmed Last Taken Insulin Detemir [Levemir Flextouch] 2 unit SQ ASDIR 09/12/18 09/12/18 09/12/18 Semaglutide [Ozempic] 2.5 unit SQ ASDIR 09/12/18 09/12/18 09/12/18 Allergies Allergy/AdvReac Type Severity Reaction Status Date / Time iodine Allergy Severe ANAPHYLAXIS Verified 09/12/18 11:26 erythromycin base Allergy Mild VOMITING Verified 09/12/18 11:26 [Erythromycin Base] Travel Screening - Travel/Exposure Within Last 30 Days Have you traveled within the last 30 days?: No - Travel/Exposure Within Last Year Have you traveled outside the [place] in the last year?: No - Additonal Travel Details Have you been exposed to anyone with a communicable illness?: No - Travel Symptoms Symptom Screening: None Review of Systems Constitutional: Denies: Chills, Fever Eyes: Denies: Eye discharge ENT: Denies: Congestion Respiratory: Denies: Cough, Dyspnea Past Medical History - SOCIAL HISTORY Smoking Status: Former smoker Alcohol Use: None Drug Use: None - RESPIRATORY Hx Respiratory Disorders: Yes Hx Asthma: No Hx Bronchitis: Yes Hx COPD: No Hx Dyspnea: No Hx Pneumonia: Yes Hx Pulmonary Embolism: Yes Hx Sleep Apnea: Yes Hx Tuberculosis: No Hx of CPAP: Yes - CARDIOVASCULAR Hx Cardio Disorders: Yes Hx Abnormal EKG: No Hx Cardiac Cath: No Hx Chest Pain: No Hx CHF: No Hx Deep Vein Thrombosis: Yes (with blood clots to lungs) Hx Edema: Yes Hx Heart Attack: No Hx Hypertension: No Hx Hypotension: No Hx Irregular Heartbeat: No Hx Palpitations: No Hx Pacemaker/Defib: No Hx Vascular Disease: No Comment:: heart valve replacement - NEURO Hx Neuro Disorders: Yes Hx Brain Tumor: No Hx CVA: No Hx Dementia: No Hx Dizziness: No Hx Headaches: No Hx Neuropathy: Yes Hx Parkinson's Disease: No Hx Seizures: No Hx Speech Problem: No Hx TIA: No - GI Hx GI Disorders: No Hx Abdominal Pain: No Hx Celiac Disease: No Hx Crohn's Disease: No Hx Diverticulitis: No Hx GI Bleed: No Hx Reflux: No Hx Hepatitis/Jaundice: No Hx Hiatal Hernia: No Hx Irritable Bowel: No Hx Liver Disease: No Hx Nausea/Vomiting: No Hx Obstructive Bowel: No Hx Pancreatitis: No Hx Rectal Bleeding: No Hx Ulcer: No Hx Wt Loss/Wt Gain: No Hx of Polyps: No - Hx Genitourinary Disorders: No Hx Bladder Problem: No Hx Dialysis: No Hx Kidney Stones: No Hx Prostate Problems: No Hx Renal Disease: No Hx UTI: No - ENDOCRINE Hx Endocrine Disorders: Yes Hx Diabetes: Yes Hx Thyroid Disease: No - MUSCULOSKELETAL Hx Musculoskeletal Disorders: Yes Hx Arthritis: Yes Hx Back Injury: No Hx Fibromyalgia: No Hx Gout: Yes Hx Musculoskeletal Disease: No Hx Osteoporosis: No - PSYCH Hx Psych Problems: No Hx Anxiety: No Hx Behavior Problems: No Hx Depression: No Hx Emotional Abuse: No Hx Sexual Abuse: No Hx Suicide Attempt: No - HEMATOLOGY/ONCOLOGY Hx Hematology/Oncology Disorders: Yes Hx Clotting Problems: Yes (takes coumadin) Comment:: [place] filter (groin) Family Medical History Any Significant Family History?: Yes Hx Diabetes: Mother, Brother/Sister, Grandparents Hx Heart Disease: Father, Grandparents Hx HTN: Mother Hx Stroke: Brother/Sister Physical Exam - General General Appearance: Alert, Oriented x3, Cooperative, No acute distress - Head Head exam: Atraumatic, Normocephalic, Normal inspection - Eye Eye exam: Normal appearance, PERRL - Neck Neck exam: Normal inspection, Full ROM. negative: Tenderness - Respiratory Respiratory exam: Normal lung sounds bilaterally. negative: Respiratory distress - Cardiovascular Cardiovascular Exam: Regular rate, Normal rhythm, Normal heart sounds - Extremities Extremities exam: Full ROM, Tenderness (There is significant R bicep muscle tenderness and bulging. There also is significant bruising present.), Other ( The R arm is NVI.). negative: Normal inspection Course Vital Signs 09/12/18 11:44 Temperature 98.6 F Pulse Rate 40 L Respiratory 20 Rate Blood Pressure 183/75 Pulse Ox 97 - Reevaluation(s) Reevaluation #1: The patient is doing very well at this time. There has been no change in his R arm swelling and bruising. I did discuss the case with Dr. Bettencourt and he would like to see the patient in the [facility]ty [facility] next week. 09/12/18 14:46 Medical Decision Making - Data Complexity MDM Data: Labs Ordered and/or Reviewed, X-Ray Ordered and/or Reviewed - Lab Data Result diagrams: 09/12/18 12:54 09/12/18 12:54 - Radiology Data Radiology results: Report reviewed (R humerus: Neg.) Disposition Disposition: Discharge Clinical Impression: Biceps tendon tear Disposition: Home, Self-Care Condition: (2) Stable Instructions: Tendon Rupture (ED) Additional Instructions: Please use Tylenol for pain if needed and wear the sling during the day. Please see Dr. Bettencourt in the Specialty Clinic next week. Return to the ER for any worsening issues. Referrals: [facility] Specialty Clinics [Provider Group] Forms: Patient Portal Access Time of Disposition: 14:47 Quality - Quality Measures Quality Measures: N/A - Blood Pressure Screening View Details: Yes Does Patient Have Any of the Following: No Blood Pressure Classification: Hypertensive Reading Systolic Measurement: 144 Diastolic Measurement: 70 Screening for High Blood Pressure: < First Hypertensive BP, F/U Documented > [ [id number]] First Hypertensive Follow-up Interventions: Referral to alternative/primary care provider.
[2018-09-12 13:03] LABS: BASO % 0.3 % (0-6); EOS % 3.1 % (0-6); GRAN % 66.8 % (47-80); HEMATOCRIT 37.1 % (42.0-52.0); HEMOGLOBIN 12.3 gm/dl (14.0-18.0); LYMPH % 24.1 % (16-45); MEAN CELL VOLUME 86.7 fl (81-97); MEAN CORPUSCULAR HEMOGLOBIN 28.7 pg (27-33); MEAN CORPUSCULAR HGB CONC 33.2 g/dl (32-36); MEAN PLATELET VOLUME 9.8 fl (7.4-10.4); MONO % 5.7 % (0-9); PLATELET COUNT 170 K/uL (130-400); RED BLOOD COUNT 4.28 M/uL (4.40-5.70); RED CELL DISTRIBUTION WIDTH 15.9 % (11.5-14.5); WHITE BLOOD COUNT W/O DIFF 6.4 K/uL (4.2-12.2)
[2018-09-12 13:16] LABS: PARTIAL THROMBOPLASTIN TIME 43.4 SECONDS (24.5-39.1); PROTHROMBIN TIME (PATIENT) 29.2 SECONDS (9.5-12.1)
[2018-09-12 14:33] LABS: CREATININE 1.7 mg/dL (0.7-1.2)
== END 2018-09-12 14:58 | disposition home or self-care (01) ==
LOC: ER 11:22
DX: S46.211A Strain of muscle, fascia and tendon of other parts of biceps, right arm, initial encounter (principal); X50.0XXA Overexertion from strenuous movement or load, initial encounter; Z87.891 Personal history of nicotine dependence
CPT/HCPCS: 80048; 85025; 85610; 85730; 99283; 99284

== ENCOUNTER 2019-07-08 09:25 | Emergency (ER) | payer MEDICARE ==
--- NOTE | 2019-07-08 09:46 | Emergency Department Record ---
History of Present Illness - General Chief complaint: Extremity Problem Stated complaint: FOOT INFECTION Time Seen by Provider: 07/08/19 09:38 Source: Patient Mode of Arrival: knee type rolling Limitations: No limitations - History of Present Illness Initial comments: The patient is here due to R foot pain for 2 days. He had surgery on the R foot [address] Tsai and was doing well. Since yesterday the patient has had R foot pain and body aching. There has been no reported fever, or chills at home but he is again having the aching all over. The patient is a diabetic and does have a Charcot foot on the R. MD Complaint: Extremity pain Onset/Timin -: Days(s) Location: Right, Foot Severity scale (1-10): 9 Quality: Aching Consistency: Constant, Intermittent - Related Data Allergies Allergy/AdvReac Type Severity Reaction Status Date / Time iodine Allergy Severe ANAPHYLAXIS Verified 07/08/19 09:35 erythromycin base Allergy Mild VOMITING Verified 07/08/19 09:35 [Erythromycin Base] Travel Screening - Travel/Exposure Within Last 30 Days Have you traveled within the last 30 days?: No - Travel/Exposure Within Last Year Have you traveled outside the [place] in the last year?: No - Additonal Travel Details Have you been exposed to anyone with a communicable illness?: No - Travel Symptoms Symptom Screening: None Review of Systems Constitutional: Reports: Malaise. Denies: Chills, Fever Eyes: Denies: Eye discharge ENT: Denies: Congestion Respiratory: Denies: Cough Cardiovascular: Denies: Chest pain Endocrine: Denies: Fatigue Gastrointestinal: Denies: Nausea Genitourinary: Denies: Dysuria Musculoskeletal: Denies: Arthralgia Skin: Denies: Bruising Past Medical History - SOCIAL HISTORY Smoking Status: Former smoker Alcohol Use: None Drug Use: None - RESPIRATORY Hx Respiratory Disorders: Yes Hx Asthma: No Hx Bronchitis: Yes Hx COPD: No Hx Dyspnea: No Hx Pneumonia: Yes Hx Pulmonary Embolism: Yes Hx Sleep Apnea: Yes Hx Tuberculosis: No Hx of CPAP: Yes - CARDIOVASCULAR Hx Cardio Disorders: Yes Hx Abnormal EKG: No Hx Cardiac Cath: No Hx Chest Pain: No Hx CHF: No Hx Deep Vein Thrombosis: Yes (with blood clots to lungs) Hx Edema: Yes Hx Heart Attack: No Hx Hypertension: No Hx Hypotension: No Hx Irregular Heartbeat: No Hx Palpitations: No Hx Pacemaker/Defib: No Hx Vascular Disease: No Comment:: heart valve replacement - NEURO Hx Neuro Disorders: Yes Hx Brain Tumor: No Hx CVA: No Hx Dementia: No Hx Dizziness: No Hx Headaches: No Hx Neuropathy: Yes Hx Parkinson's Disease: No Hx Seizures: No Hx Speech Problem: No Hx TIA: No - GI Hx GI Disorders: No Hx Abdominal Pain: No Hx Celiac Disease: No Hx Crohn's Disease: No Hx Diverticulitis: No Hx GI Bleed: No Hx Reflux: No Hx Hepatitis/Jaundice: No Hx Hiatal Hernia: No Hx Irritable Bowel: No Hx Liver Disease: No Hx Nausea/Vomiting: No Hx Obstructive Bowel: No Hx Pancreatitis: No Hx Rectal Bleeding: No Hx Ulcer: No Hx Wt Loss/Wt Gain: No Hx of Polyps: No - Hx Genitourinary Disorders: No Hx Bladder Problem: No Hx Dialysis: No Hx Kidney Stones: No Hx Prostate Problems: No Hx Renal Disease: No Hx UTI: No - ENDOCRINE Hx Endocrine Disorders: Yes Hx Diabetes: Yes Hx Thyroid Disease: No - MUSCULOSKELETAL Hx Musculoskeletal Disorders: Yes Hx Arthritis: Yes Hx Back Injury: No Hx Fibromyalgia: No Hx Gout: Yes Hx Musculoskeletal Disease: No Hx Osteoporosis: No - PSYCH Hx Psych Problems: No Hx Anxiety: No Hx Behavior Problems: No Hx Depression: No Hx Emotional Abuse: No Hx Sexual Abuse: No Hx Suicide Attempt: No - HEMATOLOGY/ONCOLOGY Hx Hematology/Oncology Disorders: Yes Hx Clotting Problems: Yes (takes coumadin) Comment:: [place] filter (groin) Family Medical History Any Significant Family History?: Yes Hx Diabetes: Mother, Brother/Sister, Grandparents Hx Heart Disease: Father, Grandparents Hx HTN: Mother Hx Stroke: Brother/Sister Physical Exam - General General Appearance: Alert, Oriented x3, Cooperative, No acute distress - Head Head exam: Atraumatic - Eye Eye exam: Normal appearance - Neck Neck exam: Normal inspection, Full ROM. negative: Tenderness - Respiratory Respiratory exam: Normal lung sounds bilaterally. negative: Respiratory distress - Cardiovascular Cardiovascular Exam: Regular rate, Normal rhythm, Normal heart sounds - GI/Abdominal GI/Abdominal exam: Soft, Normal bowel sounds. negative: Tenderness - Extremities Extremities exam: negative: Normal inspection (There is a bleeding draining superficial ulcer to the plantar surface of the R foot. ), Tenderness (The patient has no feeling in his foot.) Image of Feet: 1 - Area of ulcer. Course Vital Signs 07/08/19 09:37 Temperature 101.1 F H Pulse Rate [ 106 H Pulse Ox Probe] Respiratory 16 Rate Blood Pressure 123/74 [Left Arm] Pulse Ox 95 - Reevaluation(s) Reevaluation #1: I did discuss the issues with the patient and do believe he needs IV Abx's for the presumed foot infection. Since Dr. Tsai will not be able to come here to [facility] to see the patient I did recommend transfer to [facility] where the patient had the surgery 3 weeks ago. I did discuss the case with Dr. Serrato who does accept the patient for a direct admission. 07/08/19 10:57 Medical Decision Making - Data Complexity MDM Data: Labs Ordered and/or Reviewed, X-Ray Ordered and/or Reviewed - Lab Data Result diagrams: 07/08/19 09:50 07/08/19 09:50 - Radiology Data Radiology results: Report reviewed (R foot: Neg for any acute changes.) Disposition Disposition: Transfer Clinical Impression: Foot infection Disposition: Acute Care Hospital Transfer Transfer To: [facility] Reason For Transfer: Podiatry Accepting Physician: Rojelio Time Discussed w/Accepting Physician: 10:59 Condition: (2) Stable Forms: Patient Portal Access Time of Disposition: 10:59 Quality - Quality Measures Quality Measures: N/A - Blood Pressure Screening View Details: Yes Does Patient Have Any of the Following: No Blood Pressure Classification: Normal BP Reading Systolic Measurement: 117 Diastolic Measurement: 68 Screening for High Blood Pressure: < Normal BP, F/U Not Required > [G8783]
[2019-07-08] MEDS ORDERED: ACETAMINOPHEN 1,000 MG/100 ML BTL IVPB ONE (10:01)
[2019-07-08 10:02] LABS: HEMATOCRIT 34.3 % (42.0-52.0); HEMOGLOBIN 10.4 gm/dl (14.0-18.0); MEAN CELL VOLUME 86.6 fl (81-97); MEAN CORPUSCULAR HGB CONC 30.3 g/dl (32-36); PLATELET COUNT 152 K/uL (130-400); RED BLOOD COUNT 3.96 M/uL (4.40-5.70); RED CELL DISTRIBUTION WIDTH 16.1 % (11.5-14.5); WHITE BLOOD COUNT W/O DIFF 11.7 K/uL (4.2-12.2)
[2019-07-08 10:07] LABS: MEAN CORPUSCULAR HEMOGLOBIN 26.2 pg (27-33)
[2019-07-08 10:11] LABS: INR 1.5; PARTIAL THROMBOPLASTIN TIME 41.3 SECONDS (24.5-39.1); PROTHROMBIN TIME (PATIENT) 14.7 SECONDS (9.5-12.1)
[2019-07-08 10:21] LABS: PLATELET ESTIMATE NORMAL (NORMAL)
[2019-07-08 10:30] LABS: BILIRUBIN,TOTAL 1.2 mg/dL (0.2-1.0); CREATININE 2.9 mg/dL (0.7-1.2); TOTAL PROTEIN 7.6 g/dL (6.6-8.7)
[2019-07-08 10:35] LABS: BILIRUBIN,DIRECT 0.6 mg/dL (0-0.3); C-REACTIVE PROTEIN 32.2 mg/dL (<0.5)
--- NOTE | 2019-07-08 10:39 | RADIOLOGY REPORT ---
EXAMINATION: Right Foot, Minimum Three Views EXAM DATE: 07/08/2019 10:24 AM TECHNIQUE: AP, lateral, and oblique INDICATION: Right foot pain S/P surgery COMPARISON: May 21, 2019 ENCOUNTER: Initial FINDINGS: Right midfoot open reduction internal fixation hardware present unchanged. There are screw fractures and deformities which remain stable as compared to the prior study. No acute fracture or dislocation. Mild joint space narrowing at the right first metatarsophalangeal joint as before. Pes planus deform ity as before. Prominent plantar calcaneal spur as before. Atherosclerotic calcifications as before. IMPRESSION: Right foot with chronic deformities appearing to be stable in the interval. Dictated by: Jere Weldon DO on 07/08/2019 10:35 AM. .
[2019-07-08] MEDS ORDERED: AMPICILLIN SODIUM/SULBACTAM NA 3 G in 0.9 % SODIUM CHLORIDE 100ML 100 ML IVPB ONE (10:41)
[2019-07-08] MEDS ORDERED: ONDANSETRON HCL IV 4 MG/2 ML VIAL IVP ONE (10:44)
[2019-07-08 11:15] LABS: ERYTHROCYTE SEDIMENTATION RATE 88 mm/hr (0-20)
== END 2019-07-08 11:28 | disposition short-term general hospital (02) ==
LOC: ER 09:25
DX: T81.49XA Infection following a procedure, other surgical site, initial encounter (principal); L08.9 Local infection of the skin and subcutaneous tissue, unspecified; E11.610 Type 2 diabetes mellitus with diabetic neuropathic arthropathy; Z87.891 Personal history of nicotine dependence; Z79.01 Long term (current) use of anticoagulants; Z95.2 Presence of prosthetic heart valve
CPT/HCPCS: 99285 ×2; 96365; 96366; 96375; 85651; 85730; 85610; 80076; 86140; 80048; 84145; 85027; 73630; J0295; J2405

== ENCOUNTER 2019-07-19 14:02 | Inpatient (IN) | payer MEDICARE ==
[2019-07-19] MEDS ORDERED: WARFARIN 5 MG TAB PO SCH (16:00)
[2019-07-19] MEDS ORDERED: WARFARIN 1 MG TABLET PO SCH (16:00)
[2019-07-19] MEDS ORDERED: LEVEMIR FLEXTOUCH 100 UNIT/ML INSULIN PEN SQ SCH (17:15)
--- NOTE | 2019-07-19 17:33 | History & Physical ---
History of Present Illness - Date Date of Service for History & Physical: 07/20/19 - History of Present Illness Admitting Diagnosis: Physical deconditioning. Right foot diabetic foot ulcer with infection. Bacteriemia History of Present Illness: 64 y/o male with history of uncontrolled type-2 diabetes, HTN, hyperlipidemia, CKD, Charcot's foot, diabetic neuropathy admitted to [facility] s/p hospitalization 07/08/2019-07/19/[address] [facility] for sepsis, infected right foot diabetic foot ulcer, acute kidney injury. Prior to acute hospitalization he h ad surgical debriedment of right foot ulcer and Charcot's foot deformity by Dr Tsai on 06/17/19. 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 It was found patient had MRSA and pseudomonas in foot wound and MRSA in blood cultures. Was evaluated by ID and placed on Daptomycin, Cefepime and Levaquin. Podiatry evaluated with no further surgical recommendations. He follows with [facility], baseline renal function not available in [facility] records. He is admitted for PT/OT for physical deconditioning and to complete a 6-week course of IV antibiotic and continued right foot wound care. PCP: Catarina Heard NP Nephrology: [facility] ID: Dr. Lucero General - Communication Preferred Language?: Bengali - Nutrition Screening Poor oral intake > 1 week: No Unplanned weight loss in specified time frame: No Nutrition Support via tube feedings or parenteral nutrition: No Pressure Ulcer: No Significantly underweight define as BMI <18.5 kg/m2: No Albumin <2.5mg/dL: No Persistent nausea/vomiting/diarrhea >3 days: No Difficulty chewing/swallowing/mouth sores: No Admitting Diagnosis: No Nutrition Risk Score: Low Risk Past Medical History - SOCIAL HISTORY Smoking Status: Former smoker - SURGICAL HISTORY Past Surgical History: Right rotator cuff X2. Left middle toe amputated. Right foot surgery with plate adn screws. T&A. Vasectomy. astrid filter right groin, Valve repair and replaced. Appy. - RESPIRATORY Hx Respiratory Disorders: Yes Hx Asthma: No Hx Bronchitis: Yes Hx COPD: No Hx Dyspnea: No Hx Pneumonia: Yes Hx Pulmonary Embolism: Yes Hx Sleep Apnea: Yes Hx Tuberculosis: No Hx of CPAP: Yes - CARDIOVASCULAR Hx Cardio Disorders: Yes Hx Abnormal EKG: No Hx Cardiac Cath: No Hx Chest Pain: No Hx CHF: No Hx Deep Vein Thrombosis: Yes (with blood clots to lungs) Hx Edema: Yes Hx Heart Attack: No Hx Hypertension: No Hx Hypotension: No Hx Irregular Heartbeat: No Hx Palpitations: No Hx Pacemaker/Defib: No Hx Vascular Disease: No Comment:: heart valve replacement - NEURO Hx Neuro Disorders: Yes Hx Brain Tumor: No Hx CVA: No Hx Dementia: No Hx Dizziness: No Hx Headaches: No Hx Neuropathy: Yes Hx Parkinson's Disease: No Hx Seizures: No Hx Speech Problem: No Hx TIA: No - GI Hx GI Disorders: No Hx Abdominal Pain: No Hx Celiac Disease: No Hx Crohn's Disease: No Hx Diverticulitis: No Hx GI Bleed: No Hx Reflux: No Hx Hepatitis/Jaundice: No Hx Hiatal Hernia: No Hx Irritable Bowel: No Hx Liver Disease: No Hx Nausea/Vomiting: No Hx Obstructive Bowel: No Hx Pancreatitis: No Hx Rectal Bleeding: No Hx Ulcer: No Hx Wt Loss/Wt Gain: No Hx of Polyps: No - Hx Genitourinary Disorders: No Hx Bladder Problem: No Hx Dialysis: No Hx Kidney Stones: No Hx Prostate Problems: No Hx Renal Disease: No Hx UTI: No - ENDOCRINE Hx Endocrine Disorders: Yes Hx Diabetes: Yes Hx Thyroid Disease: No - MUSCULOSKELETAL Hx Musculoskeletal Disorders: Yes Hx Arthritis: Yes Hx Back Injury: No Hx Fibromyalgia: No Hx Gout: Yes Hx Musculoskeletal Disease: No Hx Osteoporosis: No - PSYCH Hx Psych Problems: No Hx Anxiety: No Hx Behavior Problems: No Hx Depression: No Hx Emotional Abuse: No Hx Sexual Abuse: No Hx Suicide Attempt: No - HEMATOLOGY/ONCOLOGY Hx Hematology/Oncology Disorders: Yes Hx Clotting Problems: Yes (takes coumadin) Comment:: [place] filter (groin) Family Medical History Hx Diabetes: Mother, Brother/Sister, Grandparents Hx Heart Disease: Father, Grandparents Hx HTN: Mother Hx Stroke: Brother/Sister H&P Meds/Allergies - Allergies Allergies: Allergies Allergy/AdvReac Type Severity Reaction Status Date / Time iodine Allergy Severe ANAPHYLAXIS Verified 07/08/19 09:35 erythromycin base Allergy Mild VOMITING Verified 07/08/19 09:35 [Erythromycin Base] - Active Medications Active Medications: Current Medications Hydrocodone Bitart/Acetaminophen (Nelson 5mg/325mg) 1 each PO Q6H PRN PRN Reason: PAIN - MODERATE (5-7) Allopurinol (Zyloprim) 300 mg PO DAILY [facility] Aspirin (Ecotrin (Ec)) 325 mg PO DAILY [facility] Bumetanide (Bumex) 2 mg PO DAILY [facility] Colchicine (Colcrys) 0.6 mg PO DAILY [facility] Daptomycin (Cubicin) 750 mg IV 1800 [facility] Stop: 07/24/19 18:01 Enoxaparin Sodium (Lovenox) 120 mg SQ Q12H [facility] Ferrous Sulfate (Iron) 325 mg PO DAILY [facility] CEFEPIME HCL 2 gm/ Sodium (Chloride) 100 mls @ 200 mls/hr IVPB Q12H [facility] Insulin Detemir (Levemir Flextouch) 68 unit SQ BIDINS [facility] Levofloxacin (Levaquin Tab) 750 mg PO Q48H [facility] Meloxicam (Mobic) 7.5 mg PO BID [facility] Metoprolol Succinate (Toprol Xl) 100 mg PO DAILY [facility] Patient Own Med: (Pentoxifylline 400mg) 1 each PO BID [facility] Patient Own Med: (Ozempic 2mg/1.5ml) 1 each SC WEEKLY [facility] Potassium Chloride (Klor-Con) 20 meq PO DAILY [facility] Simvastatin (Zocor) 20 mg PO QHS [facility] Tamsulosin HCl (Flomax) 0.4 mg PO DAILY [facility] Warfarin Sodium (Coumadin) 1 mg PO [id number] [facility] Warfarin Sodium (Coumadin) 5 mg PO DAILY@1600 [facility] Physical Exam - General General Appearance: Alert, Oriented x3, Cooperative, No acute distress Limitations: No limitations - Head Head exam: Atraumatic, Normocephalic - Eye Eye exam: Normal appearance, EOMI - ENT ENT exam: Mucous membranes moist - Neck Neck exam: Normal inspection - Respiratory Respiratory exam: Normal lung sounds bilaterally - Cardiovascular Cardiovascular Exam: Normal rhythm, Normal heart sounds Peripheral Pulses: 1+: Dorsalis Pedis (R) (faint), Dorsalis Pedis (L) (faint), 3+: Radial (R), Radial (L) - GI/Abdominal GI/Abdominal exam: Soft, Normal bowel sounds - Extremities Extremities exam: Joint swelling (right medial foot swelling), Other (right foot Charcot deformity). negative: Pedal edema - Neurological Neurological exam: Alert, CN II-XII intact - Psychiatric Psychiatric exam: Normal affect, Normal mood - Skin Skin exam: Other (medial planar right foot with open wound, approx 7lim6tm open area, Aquacel packing in place,no erythema, no purulence, no odor) H&P Results - Labs Result Diagrams: 07/20/19 06:05 07/20/19 06:05 Plan - Swing Bed Certification Initial Certification Due: 07/19/19 14 Day Re-Cert Due: 08/02/19 44 Day Re-Cert Due: 09/01/19 74 Day Re-Cert Due: 10/01/19 - Detailed Diagnosis and Plan (1) Physical deconditioning Current Visit: Yes Status: Acute Base Code: R53.81 - OTHER MALAISE Comment: 07/20/19 - PT/OT evaluation - (2) MRSA bacteremia Current Visit: Yes Status: Acute Base Code: R78.81 - BACTEREMIA Comment: 07/20/19 - Daptomycin, Cefepime and Levquin for total 6 week treatment 07/16/19-08/26/19 - Follow up Dr Lucero in 6 weeks - Weekly CBC, CMP, CRP, ESR, CK --> BUN/cr 49/2.0, GRF 36 -->CRP 6.38 -->ESR 104 - Repeat blood cuture at [facility] negative (3) Diabetic ulcer of right foot Current Visit: Yes Status: Acute Qualifiers: Diabetes mellitus type: type 2 Non-pressure ulcer stage: with necrosis of bone Base Code: E11.621 - TYPE 2 DIABETES MELLITUS WITH FOOT ULCER; L97.519 - NON-PRS CHRONIC ULCER OTH PRT RIGHT FOOT W UNSP SEVERITY Comment: 07/20/19 - Foot wound culture + MRSA and pseudomonas - Dressing changes with Aquacel silver as ordered - Daptomycin, Cefipime, Levaquin x 6 weeks (4) HTN (hypertension) Current Visit: Yes Status: Acute Base Code: I10 - ESSENTIAL (PRIMARY) HYPERTENSION Comment: 07/20/19 - Metoprolol Succinate 100mg QD (5) Renal insufficiency Current Visit: Yes Status: Acute Base Code: N28.9 - DISORDER OF KIDNEY AND URETER, UNSPECIFIED Comment: 07/20/19 - Cr 2.02 07/[address] [facility], will be checking weekly --> Cr 2.0, GRF 36 - Renal US at [facility] with no acute findings, PTH normal - Meloxican, bumex and potassium on hold until renal status improves - [facility] manages, will need to obtain baseline cr and GFR for comparison (6) T2DM (type 2 diabetes mellitus) Current Visit: Yes Status: Acute Qualifiers: Diabetes mellitus joint terminal attack controller insulin use: with joint terminal attack controller use Diabetes mellitus complication status: with neurologic complications Diabetes mellitus complication detail: with polyneuropathy Qualified Code(s): E11.42 - Type 2 diabetes mellitus with diabetic polyneuropathy; Z79.4 - keno terminal operator (current) use of insulin Base Code: E11.9 - TYPE 2 DIABETES MELLITUS WITHOUT COMPLICATIONS Comment: 07/20/19 - Will need tight control - Accu check AC/HS with sliding scale - Levemir 68 units BID (home dosing), decreased to 35 units BID in hospital, will continue new dose and adjust as needed , Ozempic 1mg weekly - BG 139 (7) DVT prophylaxis Current Visit: Yes Status: Acute Base Code: [id number] - Comment: 07/20/19 - Hx of PE, does have greefield filter - Chronic anticoagulation therapy with Coumadin 6mg QD goal INR 2-3 - Lovenox bridge given while Coumadin on hold for PICC placement, DC Lovenox and INR is therapeutic - INR 1.3, Coumadin dosing increased by 10% weekly maintenance today, adjust until goal is met (8) Full code status Current Visit: Yes Status: Acute Base Code: Z78.9 - OTHER SPECIFIED HEALTH STATUS
[2019-07-19] MEDS ORDERED: 0.9 % SODIUM CHLORIDE 10ML SYR IVP STA (17:57)
[2019-07-19] MEDS ORDERED: DAPTOMYCIN 500 MG/VIAL IV SCH (18:00)
[2019-07-19] MEDS: HEPARIN SODIUM FLUSH 100 UNITS/ML SYR 5ML IVP SCH ×2 (18:17→22:20)
[2019-07-19] MEDS: HYDROCODONE/APAP 5/325MG TABLET PO PRN (18:29)
[2019-07-19] MEDS: SIMVASTATIN 20 MG TABLET PO SCH (21:39)
[2019-07-19] MEDS: LEVOFLOXACIN 500 MG TABLET PO SCH (21:39)
[2019-07-19] MEDS: CEFEPIME HCL 2 GM in 0.9 % SODIUM CHLORIDE 100ML 100 ML IVPB SCH (21:40)
[2019-07-19] MEDS ORDERED: ACETAMINOPHEN 325 MG TAB PO PRN (21:46)
[2019-07-19] MEDS: LEVEMIR FLEXTOUCH 100 UNIT/ML INSULIN PEN SQ SCH (21:55)
[2019-07-19] MEDS ORDERED: ENOXAPARIN 60 MG/0.6 ML SYR SQ SCH (22:00)
[2019-07-19] MEDS ORDERED: MELOXICAM 7.5 MG TABLET PO SCH (22:00)
[2019-07-19] MEDS: PENTOXIFYLLINE 400 MG PO SCH (22:06)
[2019-07-19] MEDS: NOVOLOG FLEXPEN (INSULIN ASPART) 100 UNITS/ML SQ SCH (22:07)
[2019-07-19 22:41] LABS: INR 1.3; PROTHROMBIN TIME (PATIENT) 13.3 SECONDS (9.5-12.1)
[2019-07-19] MEDS: ENOXAPARIN 60 MG/0.6 ML SYR SQ SCH (23:09)
[2019-07-20 06:33] LABS: HEMATOCRIT 32.1 % (42.0-52.0); MEAN CELL VOLUME 83.2 fl (81-97); MEAN CORPUSCULAR HEMOGLOBIN 25.9 pg (27-33); MEAN CORPUSCULAR HGB CONC 31.2 g/dl (32-36); MEAN PLATELET VOLUME 9.7 fl (7.4-10.4); PLATELET COUNT 337 K/uL (130-400); RED BLOOD COUNT 3.86 M/uL (4.40-5.70); RED CELL DISTRIBUTION WIDTH 15.9 % (11.5-14.5)
[2019-07-20 06:37] LABS: INR 1.3
[2019-07-20 06:46] LABS: ALB/GLOB RATIO 0.8 (1.1-1.8); ALBUMIN 3.3 g/dL (4.0-5.0); BILIRUBIN,TOTAL 0.6 mg/dL (0.2-1.0); C-REACTIVE PROTEIN 6.38 mg/dL (<0.5); TOTAL PROTEIN 7.5 g/dL (6.6-8.7)
[2019-07-20 07:09] LABS: ERYTHROCYTE SEDIMENTATION RATE 104 mm/hr (0-20)
[2019-07-20] MEDS ORDERED: WARFARIN 5 MG TAB PO ONE (07:40)
[2019-07-20] MEDS: NOVOLOG FLEXPEN (INSULIN ASPART) 100 UNITS/ML SQ SCH ×4 (09:47→22:27)
[2019-07-20] MEDS ORDERED: POTASSIUM CHLORIDE 20 MEQ TABLET PO SCH (10:00)
[2019-07-20] MEDS ORDERED: BUMETANIDE 1 MG TABLET PO SCH (10:00)
[2019-07-20] MEDS: LEVEMIR FLEXTOUCH 100 UNIT/ML INSULIN PEN SQ SCH ×2 (10:22→22:31)
[2019-07-20] MEDS: ENOXAPARIN 60 MG/0.6 ML SYR SQ SCH ×2 (10:23→21:51)
[2019-07-20] MEDS: CEFEPIME HCL 2 GM in 0.9 % SODIUM CHLORIDE 100ML 100 ML IVPB SCH ×2 (10:23→22:10)
[2019-07-20] MEDS: ALLOPURINOL 100 MG TAB PO SCH (10:24)
[2019-07-20] MEDS: COLCHICINE 0.6 MG TABLET PO SCH (10:24)
[2019-07-20] MEDS: ASPIRIN 325 MG TAB ENTERIC-COATED PO SCH (10:24)
[2019-07-20] MEDS: FERROUS SULFATE 325 MG TAB PO SCH (10:24)
[2019-07-20] MEDS: TAMSULOSIN HCL 0.4 MG CAP.ER.24H PO SCH (10:24)
[2019-07-20] MEDS: METOPROLOL SUCC 50 MG TABLET PO SCH (10:24)
[2019-07-20] MEDS: 0.9 % SODIUM CHLORIDE 10ML SYR IVP SCH ×5 (10:25→21:50)
[2019-07-20] MEDS: HYDROCODONE/APAP 5/325MG TABLET PO PRN ×2 (10:41→22:39)
[2019-07-20] MEDS: HEPARIN SODIUM FLUSH 100 UNITS/ML SYR 5ML IVP SCH ×2 (11:09→22:40)
[2019-07-20] MEDS: HEPARIN SODIUM FLUSH 100 UNITS/ML SYR 5ML IV SCH ×2 (11:10→22:25)
[2019-07-20] MEDS: WARFARIN 5 MG TAB PO SCH (16:32)
[2019-07-20] MEDS: WARFARIN 1 MG TABLET PO SCH (16:32)
[2019-07-20] MEDS: PENTOXIFYLLINE 400 MG PO SCH ×2 (16:35→21:47)
[2019-07-20] MEDS: SIMVASTATIN 20 MG TABLET PO SCH (21:47)
[2019-07-20] MEDS: DAPTOMYCIN 500 MG/VIAL IV SCH (21:49)
[2019-07-21 06:33] LABS: INR 1.3; PROTHROMBIN TIME (PATIENT) 13.3 SECONDS (9.5-12.1)
[2019-07-21] MEDS: NOVOLOG FLEXPEN (INSULIN ASPART) 100 UNITS/ML SQ SCH ×4 (07:50→22:19)
[2019-07-21] MEDS: TAMSULOSIN HCL 0.4 MG CAP.ER.24H PO SCH (10:30)
[2019-07-21] MEDS: CEFEPIME HCL 2 GM in 0.9 % SODIUM CHLORIDE 100ML 100 ML IVPB SCH ×2 (10:30→22:21)
[2019-07-21] MEDS: METOPROLOL SUCC 50 MG TABLET PO SCH (10:30)
[2019-07-21] MEDS: LEVEMIR FLEXTOUCH 100 UNIT/ML INSULIN PEN SQ SCH ×2 (10:30→22:17)
[2019-07-21] MEDS: ASPIRIN 325 MG TAB ENTERIC-COATED PO SCH (10:30)
[2019-07-21] MEDS: HYDROCODONE/APAP 5/325MG TABLET PO PRN ×2 (10:30→20:54)
[2019-07-21] MEDS: COLCHICINE 0.6 MG TABLET PO SCH (10:30)
[2019-07-21] MEDS: FERROUS SULFATE 325 MG TAB PO SCH (10:30)
[2019-07-21] MEDS: ENOXAPARIN 60 MG/0.6 ML SYR SQ SCH ×2 (10:30→22:21)
[2019-07-21] MEDS: ALLOPURINOL 100 MG TAB PO SCH (10:30)
[2019-07-21] MEDS: PENTOXIFYLLINE 400 MG PO SCH ×2 (10:30→21:56)
[2019-07-21] MEDS: HEPARIN SODIUM FLUSH 100 UNITS/ML SYR 5ML IV SCH ×2 (11:44→22:26)
[2019-07-21] MEDS: 0.9 % SODIUM CHLORIDE 10ML SYR IVP SCH ×4 (11:44→21:52)
[2019-07-21] MEDS: HEPARIN SODIUM FLUSH 100 UNITS/ML SYR 5ML IVP SCH (11:44)
[2019-07-21] MEDS: WARFARIN 5 MG TAB PO SCH (16:25)
[2019-07-21] MEDS: WARFARIN 1 MG TABLET PO SCH (16:26)
[2019-07-21] MEDS: LEVOFLOXACIN 500 MG TABLET PO SCH (21:52)
[2019-07-21] MEDS: SIMVASTATIN 20 MG TABLET PO SCH (21:52)
[2019-07-21] MEDS: DAPTOMYCIN 500 MG/VIAL IV SCH (21:54)
[2019-07-22 06:47] LABS: INR 1.3
[2019-07-22] MEDS: NOVOLOG FLEXPEN (INSULIN ASPART) 100 UNITS/ML SQ SCH ×4 (09:01→23:08)
[2019-07-22] MEDS ORDERED: PNEUM 23-VAL ADULT IM ONE (10:00)
[2019-07-22] MEDS: CEFEPIME HCL 2 GM in 0.9 % SODIUM CHLORIDE 100ML 100 ML IVPB SCH ×2 (10:03→21:41)
[2019-07-22] MEDS: 0.9 % SODIUM CHLORIDE 10ML SYR IVP SCH ×4 (10:03→21:39)
[2019-07-22] MEDS: HEPARIN SODIUM FLUSH 100 UNITS/ML SYR 5ML IVP SCH (10:04)
[2019-07-22] MEDS: ASPIRIN 325 MG TAB ENTERIC-COATED PO SCH (10:04)
[2019-07-22] MEDS: TAMSULOSIN HCL 0.4 MG CAP.ER.24H PO SCH (10:04)
[2019-07-22] MEDS: COLCHICINE 0.6 MG TABLET PO SCH (10:04)
[2019-07-22] MEDS: FERROUS SULFATE 325 MG TAB PO SCH (10:05)
[2019-07-22] MEDS: LEVEMIR FLEXTOUCH 100 UNIT/ML INSULIN PEN SQ SCH ×2 (10:05→23:08)
[2019-07-22] MEDS: HEPARIN SODIUM FLUSH 100 UNITS/ML SYR 5ML IV SCH ×2 (10:05→21:40)
[2019-07-22] MEDS: ENOXAPARIN 60 MG/0.6 ML SYR SQ SCH ×2 (10:07→23:01)
[2019-07-22] MEDS: ALLOPURINOL 100 MG TAB PO SCH (10:09)
[2019-07-22] MEDS: METOPROLOL SUCC 50 MG TABLET PO SCH (10:09)
[2019-07-22] MEDS: PENTOXIFYLLINE 400 MG PO SCH ×2 (10:09→21:39)
--- NOTE | 2019-07-22 10:46 | Rehab Evaluation ---
Patient Information - Patient Information Diagnosis: Physical Deconditioning, R foot diabetic ulceration. Ordered Treatment: PT Evaluate and Treat Status: Initial Evaluation Past Medical/Surgical Hx: PAST MEDICAL/SURGICAL HISTORY Past Surgical History Right rotator cuff X2. Left middle toe amputated . Right foot surgery with plate adn screws. T&A . Vasectomy. astrid filter right groin, Valve repair and replaced. Appy. PMH - Respiratory Hx Respiratory Disorders Yes Hx Asthma No Hx Bronchitis Yes Hx Chronic Obstructive No Pulmonary Disease (COPD) Hx Dyspnea No Hx Pneumonia Yes Hx Pulmonary Embolism Yes Hx Sleep Apnea Yes Hx Tuberculosis No Hx of CPAP Yes PMH - Cardiovascular Hx Cardiovascular Disorders Yes Hx Abnormal EKG No Hx Cardiac Catheterization No Hx Chest Pain No Hx Congestive Heart Failure No Hx Deep Vein Thrombosis Yes: with blood clots to lungs Hx Edema Yes Hx Heart Attack No Hx Hypertension No Hx Hypotension No Hx Irregular Heartbeat No Hx Palpitations No Hx Pacemaker/Defibrillator No Hx Vascular Disease No Hx Transient Ischemic Attacks No (TIA) Comment: heart valve replacement PMH - Neuro Hx Neurological Disorders Yes Hx Brain Tumor No Hx Cerebrovascular Accident No Hx Dementia No Hx Dizziness No Hx Headaches No Hx Neuropathy Yes Hx Parkinson's Disease No Hx Seizures No Hx Speech Problem No Hx Syncope No Hx Transient Ischemic Attacks No (TIA) PMH - GI Hx Gastrointestinal Disorders No Hx Abdominal Pain No Hx Celiac Disease No Hx Crohn's Disease No Hx Diverticulitis No Hx Gastrointestinal Bleed No Hx Gastroesophageal Reflux No Hx Hepatitis/Jaundice No Hx Hiatal Hernia No Hx Irritable Bowel No Hx Liver Disease No Hx Nausea/Vomiting No Hx Obstructive Bowel No Hx Pancreatitis No Hx Rectal Bleeding No Hx Ulcer No Hx Weight Loss/Weight Gain No PMH - Hx Genitourinary Disorders No Hx Bladder Problem No Hx Dialysis No Hx Kidney Stones No Hx Prostate Problems No Hx Renal Disease No Hx Urinary Tract Infection No PMH - Endocrine Hx Endocrine Disorders Yes Hx Diabetes Yes Hx Thyroid Disease No PMH - Musculoskeletal Hx Musculoskeletal Disorders Yes Hx Arthritis Yes Hx Back Injury No Hx Fibromyalgia No Hx Gout Yes Hx Musculoskeletal Disease No Hx Osteoporosis No PMH - Psych Hx Psychiatric Problems No Hx Anxiety No Hx Behavior Problems No Hx Depression No Hx Emotional Abuse No Hx Sexual Abuse No Hx Suicide Attempt No PMH - Hematology/Oncology Hx Hematology/Oncology Yes Disorders Hx Clotting Problems Yes: takes coumadin Comment: [place] filter (groin) Premorbid Status: Detail (The patient has used a kneeling scooter since May independently at home.) Social History: Detail (The patient lives with and step son in a one story house with a basement and a ramp at the enterance. The bathroom is equipped with a tub/shwoer combination and an elevated toilet. The bathroom does not have grab bars. The patient reports his kneeling scooter is not acessible to his bedroom so he has been sleeping in a recliner. The patient has a walker and canes an the kneeling scooter.) Precautions: [place], Fall, Other (NWB on the R LE, contact isolation due to MRSA) - Time With Patient Total Time Spent With Patient (Min): 30 Treatment Procedures: Detail (Initial Evaluation, low complexity.) Subjective Information - Subjective Information Per Patient (The patient complains of pain in R foot level 2-3 at the highest.) Objective Data - Mental Status Patient Orientation: Oriented x3 - ROM Not within normal limits (The patient's AROM is WNL except for R ankle and toes which has limited motion due to past surgical intervention ie: no ankle inversion and eversion and limited dorsi and plantar flexion.) - Strength/Tone Not within normal limits (The patient's L LE strength is generally 4+ to 5/5, R LE: hip flexors 4/5, hip abductors and adductors 4+/5, knee flexors 4/5, knee extensors 5/5, ankle musculature was not tested, minimal dorsi and plantar flexion( 2/5)) - Transfers Independent (The patient was independent with sit to and from stand transfer and transfer to and from chair to scooter.) - Balance Balance Sitting: Good Balance Standing: Good - Gait Detail (The patient was independent with propelling scooter to bathroom maintaining NWB status on R LE. The patient was independent opening and closing door.) Therapy Assessment - Therapy Assessment Detail (The patient presents with minimal decreased R LE strength and limited ankle AROM. The patient was independent with transfers and using kneeling scooter for all mobililty. Will instruct the patient in LE strengthening exercises and ankle AROM exercises and monitor pt. LE HEP and mobility while he is in the Swing Bed unit.) Problem List - Problem List Physical Therapy Problem List: Detail (Minimal Decrease in LE strength and limited R ankle AROM) Goals - Goals Physical Therapy Goals: Instruct and monitor pt. in a LE strengthening HEP. Plan - Plan Physical Therapy Plan: 1-2 times a week for monitoring of mobility and LE strengthening exercises and R ankle ROM exercises.
--- NOTE | 2019-07-22 10:46 | Rehab Evaluation ---
Patient Information - Patient Information Diagnosis: Physical deconditioning, Right foot diabetic ulcer w/ infection,bact eriemia Ordered Treatment: OT Evaluate and Treat Status: Initial Evaluation Surgery: Yes (surgical debridement of right foot) Date of Surgery: 06/17/19 Past Medical/Surgical Hx: PAST MEDICAL/SURGICAL HISTORY Past Surgical History Right rotator cuff X2. Left middle toe amputated . Right foot surgery with plate adn screws. T&A . Vasectomy. astrid filter right groin, Valve repair and replaced. Appy. PMH - Respiratory Hx Respiratory Disorders Yes Hx Asthma No Hx Bronchitis Yes Hx Chronic Obstructive No Pulmonary Disease (COPD) Hx Dyspnea No Hx Pneumonia Yes Hx Pulmonary Embolism Yes Hx Sleep Apnea Yes Hx Tuberculosis No Hx of CPAP Yes PMH - Cardiovascular Hx Cardiovascular Disorders Yes Hx Abnormal EKG No Hx Cardiac Catheterization No Hx Chest Pain No Hx Congestive Heart Failure No Hx Deep Vein Thrombosis Yes: with blood clots to lungs Hx Edema Yes Hx Heart Attack No Hx Hypertension No Hx Hypotension No Hx Irregular Heartbeat No Hx Palpitations No Hx Pacemaker/Defibrillator No Hx Vascular Disease No Hx Transient Ischemic Attacks No (TIA) Comment: heart valve replacement PMH - Neuro Hx Neurological Disorders Yes Hx Brain Tumor No Hx Cerebrovascular Accident No Hx Dementia No Hx Dizziness No Hx Headaches No Hx Neuropathy Yes Hx Parkinson's Disease No Hx Seizures No Hx Speech Problem No Hx Syncope No Hx Transient Ischemic Attacks No (TIA) PMH - GI Hx Gastrointestinal Disorders No Hx Abdominal Pain No Hx Celiac Disease No Hx Crohn's Disease No Hx Diverticulitis No Hx Gastrointestinal Bleed No Hx Gastroesophageal Reflux No Hx Hepatitis/Jaundice No Hx Hiatal Hernia No Hx Irritable Bowel No Hx Liver Disease No Hx Nausea/Vomiting No Hx Obstructive Bowel No Hx Pancreatitis No Hx Rectal Bleeding No Hx Ulcer No Hx Weight Loss/Weight Gain No PMH - Hx Genitourinary Disorders No Hx Bladder Problem No Hx Dialysis No Hx Kidney Stones No Hx Prostate Problems No Hx Renal Disease No Hx Urinary Tract Infection No PMH - Endocrine Hx Endocrine Disorders Yes Hx Diabetes Yes Hx Thyroid Disease No PMH - Musculoskeletal Hx Musculoskeletal Disorders Yes Hx Arthritis Yes Hx Back Injury No Hx Fibromyalgia No Hx Gout Yes Hx Musculoskeletal Disease No Hx Osteoporosis No PMH - Psych Hx Psychiatric Problems No Hx Anxiety No Hx Behavior Problems No Hx Depression No Hx Emotional Abuse No Hx Sexual Abuse No Hx Suicide Attempt No PMH - Hematology/Oncology Hx Hematology/Oncology Yes Disorders Hx Clotting Problems Yes: takes coumadin Comment: [place] filter (groin) Premorbid Status: Detail (Pt lives with spouse in a 1 story house with basement. He has a ramp at the entrance. He has a tub/shower combination, no seat or grab bars although he is planning to get an extended tub seat. He has an eleva jose toilet, no grab bars. Pt and spouse share home mgmt tasks and he is responsible for yard work. He also works at [employer]. He has a scooter for right LE, crutches, 2 wheeled walker and multiple canes.) Precautions: [place], Fall, Other (Contact isolation due to MRSA and pseudomonas in right foot and MRSA in blood. NWB right LE.) - Time With Patient Total Time Spent With Patient (Min): 35 Treatment Procedures: Detail (OT eval low complexity) Subjective Information - Subjective Information Per Patient Objective Data - Pain Pain Present: Yes (2-3/10 in right foot) - Mental Status Patient Orientation: Oriented x3 - Visual Perception Appears within normal limits for therapeutic activities (Pt reports he wears glasses.) - ROM Within normal limits (Manuel UE AROM WNL) - Strength/Tone Within normal limits (Manuel UE strength 5/5) - Coordination Appears within normal limits for therapeutic activities - Transfers Independent (Ind with sit to stand from recliner) - Balance Balance Sitting: Good Balance Standing: Good - Sensation Intact (Intact manuel UEs.) - Gait Detail (Pt is Ind with use of scooter in room for mobility.) - ADL's/IADL's Detail (Pt reports he was Ind with sponge bathing, dressing and grooming/hygiene tasks yesterday and this am. Pt reports he did not have any difficulty and has also been going to the bathroom Indly. He has not attempted showering since admission.) Therapy Assessment - Therapy Assessment Detail (Pt presents with good UE function, Ind functional mobility and good overall endurance. Need to further assess showering tasks as well as IADLs once patient cleared to go out of room.) Problem List - Problem List Occupational Therapy Problem List: Detail (1. Need to assess showering.) Goals - Goals Occupational Therapy Goals: 1. Pt will be Ind with showering in sitting. Prognosis - Prognosis Good Plan - Plan Occupational Therapy Plan: OT for 1-2 visits to assess showering and will follow for additional needs.
[2019-07-22] MEDS: WARFARIN 5 MG TAB PO ONE ×2 (18:17→18:18)
[2019-07-22] MEDS: WARFARIN 5 MG TAB PO SCH (18:18)
[2019-07-22] MEDS: SIMVASTATIN 20 MG TABLET PO SCH (21:38)
[2019-07-22] MEDS: DAPTOMYCIN 500 MG/VIAL IV SCH (21:39)
[2019-07-23 06:44] LABS: INR 1.3; PROTHROMBIN TIME (PATIENT) 13.2 SECONDS (9.5-12.1)
[2019-07-23] MEDS: NOVOLOG FLEXPEN (INSULIN ASPART) 100 UNITS/ML SQ SCH ×4 (08:08→23:21)
[2019-07-23] MEDS: METOPROLOL SUCC 50 MG TABLET PO SCH (09:25)
[2019-07-23] MEDS: ASPIRIN 325 MG TAB ENTERIC-COATED PO SCH (09:26)
[2019-07-23] MEDS: COLCHICINE 0.6 MG TABLET PO SCH (09:26)
[2019-07-23] MEDS: ALLOPURINOL 100 MG TAB PO SCH (09:27)
[2019-07-23] MEDS: FERROUS SULFATE 325 MG TAB PO SCH (09:28)
[2019-07-23] MEDS: ENOXAPARIN 60 MG/0.6 ML SYR SQ SCH ×2 (09:28→23:11)
[2019-07-23] MEDS: TAMSULOSIN HCL 0.4 MG CAP.ER.24H PO SCH (09:28)
[2019-07-23] MEDS: LEVEMIR FLEXTOUCH 100 UNIT/ML INSULIN PEN SQ SCH ×2 (09:29→23:19)
[2019-07-23] MEDS: PENTOXIFYLLINE 400 MG PO SCH ×2 (09:32→23:10)
[2019-07-23] MEDS: 0.9 % SODIUM CHLORIDE 10ML SYR IVP SCH ×4 (11:16→23:40)
[2019-07-23] MEDS: HEPARIN SODIUM FLUSH 100 UNITS/ML SYR 5ML IVP SCH ×2 (11:16→23:40)
[2019-07-23] MEDS: CEFEPIME HCL 2 GM in 0.9 % SODIUM CHLORIDE 100ML 100 ML IVPB SCH ×2 (11:16→22:58)
[2019-07-23] MEDS: HEPARIN SODIUM FLUSH 100 UNITS/ML SYR 5ML IV SCH ×2 (11:17→23:40)
--- NOTE | 2019-07-23 11:24 | Occupational Therapy Tx Note ---
Occupational Therapy Tx Note - Treatment Note Tolerated: Good Total Time Spent With Patient: 45 (ADL) Occupational Therapy Treatment Note: Detail (S: Pt up in recliner, ready for showering. O: Right foot and IV site wrapped per OT. Pt sit to stand and amb with scooter to shower seat Indly. Pt doffed t-shirt, left slipper sock, pants and boxer shorts Indly in sitting and standing. Pt completed total body showering in sitting with hand held shower Indly with assist for back only (pt has a long scrub brush that he uses for his back at home). Pt dried self Indly and donned shirt and boxer shorts Indly. Pt amb with scooter to EOB and donned pants Indly. Sit to stand and amb to recliner Indly. Pt donned left slipper sock Indly. Right foot and IV site unwrapped per OT. Pt left up in recliner. A: Pt is Ind with showering and total body dressing. He did not demonstrate or report any fatigue with self care tasks.) Occupational Therapy Problem List: Detail (1. Need to assess showering.) Occupational Therapy Goals: Goal met: 1. Pt will be Ind with showering in sitting. Prognosis: Good Occupational Therapy Plan: OT will follow for additional needs.
--- NOTE | 2019-07-23 13:54 | Physical Therapy Tx Note ---
Physical Therapy Tx Note - Treatment Note Tolerated: Good Total Time Spent With Patient: 15 Physical Therapy Tx Note: Detail (The patient was instructed in an initial UE and LE strengthening and muscular endurance exercise program using blue theraband. Exercises included: ankle pumps, resisted hip abduction, D1 UE PNF patterns, biceps, tricep curls and hip adductor squeezes x 10 reps for all exercises. The patient is to continue with exercises independently with PT p rogressing exercise program. The patient denies any difficulty with mobility.) Physical Therapy Problem List: Detail (Minimal Decrease in LE strength and limited R ankle AROM) Physical Therapy Goals: Instruct and monitor pt. in a LE strengthening HEP. Physical Therapy Plan: 1-2 times a week for monitoring of mobility and LE strengthening exercises and R ankle ROM exercises.
[2019-07-23] MEDS: WARFARIN 5 MG TAB PO SCH (16:04)
[2019-07-23] MEDS: WARFARIN 1 MG TABLET PO SCH (16:05)
[2019-07-23] MEDS: DAPTOMYCIN 500 MG/VIAL IV SCH (22:45)
[2019-07-23] MEDS: SIMVASTATIN 20 MG TABLET PO SCH (23:10)
[2019-07-23] MEDS: LEVOFLOXACIN 500 MG TABLET PO SCH (23:10)
[2019-07-24 06:41] LABS: INR 1.4
[2019-07-24] MEDS: TAMSULOSIN HCL 0.4 MG CAP.ER.24H PO SCH (10:52)
[2019-07-24] MEDS: ALLOPURINOL 100 MG TAB PO SCH (10:53)
[2019-07-24] MEDS: METOPROLOL SUCC 50 MG TABLET PO SCH (10:53)
[2019-07-24] MEDS: COLCHICINE 0.6 MG TABLET PO SCH (10:53)
[2019-07-24] MEDS: ASPIRIN 325 MG TAB ENTERIC-COATED PO SCH (10:53)
[2019-07-24] MEDS: FERROUS SULFATE 325 MG TAB PO SCH (10:53)
[2019-07-24] MEDS: LEVEMIR FLEXTOUCH 100 UNIT/ML INSULIN PEN SQ SCH ×2 (10:54→22:58)
[2019-07-24] MEDS: ENOXAPARIN 60 MG/0.6 ML SYR SQ SCH ×2 (10:54→22:52)
[2019-07-24] MEDS: CEFEPIME HCL 2 GM in 0.9 % SODIUM CHLORIDE 100ML 100 ML IVPB SCH ×2 (10:54→22:45)
[2019-07-24] MEDS: NOVOLOG FLEXPEN (INSULIN ASPART) 100 UNITS/ML SQ SCH ×4 (10:55→22:59)
[2019-07-24] MEDS: 0.9 % SODIUM CHLORIDE 10ML SYR IVP SCH ×4 (10:56→23:26)
[2019-07-24] MEDS: HEPARIN SODIUM FLUSH 100 UNITS/ML SYR 5ML IVP SCH ×2 (10:57→23:28)
[2019-07-24] MEDS: HEPARIN SODIUM FLUSH 100 UNITS/ML SYR 5ML IV SCH ×2 (10:57→23:27)
[2019-07-24] MEDS: PENTOXIFYLLINE 400 MG PO SCH ×2 (11:16→22:52)
--- NOTE | 2019-07-24 13:43 | Physician Progress Note ---
Subjective - Date Date of Progress Note: 07/24/19 - Admitting Diagnosis Diagnosis: Physical deconditioning. Right foot diabetic foot ulcer with infection. Bacteriemia - Subjective Nursing Care Plan Problem List Activity Intolerance (Swing Bed) Start: 07/19/19 17:51 Freq: Status: Active Protocol: Created 07/19/19 17:51 RCS (Rec: 07/19/19 17:51 RCS ASTS-1) Altered Thought Process (Fall Risk) Start: 07/19/19 17:24 Freq: Status: Active Protocol: Created 07/19/19 17:24 RCS (Rec: 07/19/19 17:24 RCS ASTS-1) Impaired Mobility (Fall Risk) Start: 07/19/19 17:24 Freq: Status: Active Protocol: Created 07/19/19 17:24 RCS (Rec: 07/19/19 17:24 RCS ASTS-1) Knowledge Deficit (Swing Bed) Start: 07/19/19 17:51 Freq: Status: Active Protocol: Created 07/19/19 17:51 RCS (Rec: 07/19/19 17:51 RCS ASTS-1) Pain (Swing Bed) Start: 07/19/19 17:51 Freq: Status: Active Protocol: Created 07/19/19 17:51 RCS (Rec: 07/19/19 17:51 RCS ASTS-1) Risk for Injury (Fall Risk) Start: 07/19/19 17:24 Freq: Status: Active Protocol: Created 07/19/19 17:24 RCS (Rec: 07/19/19 17:24 RCS ASTS-1) Subjective: no new complaints and reviewed patient chart and Dr Tsai is follow ing his foot ulcer and seeing him next week Patient is on 6 weeks of antibiotics daptomycin cefepine and levaquin. sensi tivities reviewed and his organisms are sensitive. Diabeties is under control with levemir and novolog scale before meals but at home he only uses levemir. 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 and that is being titrated up and once at goal lovenox will be stopped His host hostess is Dr Friend and he has had CABG and two valves replaced in 2015 General - Cognitive Patterns Speech: Normal Thought Process: Intact Thought Content: Normal - Communication Select best description of speech pattern: Clear Speech Ability to express ideas and wants: Understood Understanding verbal content: Understands - Mood and Behavior Patterns Appearance: Well Groomed Mood: Normal Attitude: Cooperative Motor Activity: Calm Affect: Appropriate Hallucinations: Denies - Physical Functioning Activity Level: Up as tolerated Turning: Self ad andrew ROM Ability: Within Normal Limits Ambulation Ability: Independent Bed Mobility: Independent Transfer Ability: Independent Bathing Ability: Independent Personal Hygiene: Independent Dressing Ability: Independent Eating (Feeding) Ability: Independent Toileting Ability: Independent Administer Own Medication: Independent - Continence Bowel Pattern: No Bowel Movement Bladder Pattern: Normal Meds/Allergies - Allergies Allergies Allergy/AdvReac Type Severity Reaction Status Date / Time iodine Allergy Severe ANAPHYLAXIS Verified 07/08/19 09:35 erythromycin base Allergy Mild VOMITING Verified 07/08/19 09:35 [Erythromycin Base] - Active Medications Current Medications Acetaminophen (Tylenol 325mg) 325 mg PO Q6H PRN PRN Reason: PAIN - MILD (1-4) Hydrocodone Bitart/Acetaminophen ([place] 5mg/325mg) 1 each PO Q6H PRN PRN Reason: PAIN - MODERATE (5-7) Last Admin: 07/21/19 20:54 Dose: 1 each Documented by: Allopurinol (Zyloprim) 300 mg PO DAILY [facility] Last Admin: 07/24/19 10:53 Dose: 300 mg Documented by: Aspirin (Ecotrin (Ec)) 325 mg PO DAILY [facility] Last Admin: 07/24/19 10:53 Dose: 325 mg Documented by: Colchicine (Colcrys) 0.6 mg PO DAILY [facility] Last Admin: 07/24/19 10:53 Dose: 0.6 mg Documented by: Daptomycin (Cubicin) 750 mg IV 2200 [facility] Last Admin: 07/23/19 22:45 Dose: 750 mg Documented by: Enoxaparin Sodium (Lovenox) 120 mg SQ Q12H [facility] Last Admin: 07/24/19 10:54 Dose: 120 mg Documented by: Ferrous Sulfate (Iron) 325 mg PO DAILY [facility] Last Admin: 07/24/19 10:53 Dose: 325 mg Documented by: Heparin Sodium (Porcine) () 500 unit IVP ASDIR [facility] Last Admin: 07/24/19 10:57 Dose: 500 unit Documented by: Heparin Sodium (Porcine) () 500 unit IV BID [facility] Last Admin: 07/24/19 10:57 Dose: 500 unit Documented by: CEFEPIME HCL 2 gm/ Sodium (Chloride) 100 mls @ 200 mls/hr IVPB Q12H [facility] Last Infusion: 07/24/19 12:23 Dose: Infused Documented by: Insulin Aspart (Novolog Flexpen) 1 unit SQ QIDWMHS [facility]; Protocol Last Admin: 07/24/19 12:25 Dose: 4 unit Documented by: Insulin Detemir (Levemir Flextouch) 35 unit SQ BID [facility] Last Admin: 07/24/19 10:54 Dose: 35 unit Documented by: Levofloxacin (Levaquin Tab) 750 mg PO Q48H [facility] Last Admin: 07/23/19 23:10 Dose: 750 mg Documented by: Metoprolol Succinate (Toprol Xl) 100 mg PO DAILY [facility] Last Admin: 07/24/19 10:53 Dose: 100 mg Documented by: Patient Own Med: (Pentoxifylline 400mg) 1 each PO BID [facility] Last Admin: 07/24/19 11:16 Dose: 1 each Documented by: Patient Own Med: (Ozempic 2mg/1.5ml) 1 each SC WEEKLY [facility] Simvastatin (Zocor) 20 mg PO QHS [facility] Last Admin: 07/23/19 23:10 Dose: 20 mg Documented by: Sodium Chloride () 10 ml IVP BID [facility] Last Admin: 07/24/19 10:57 Dose: 10 ml Documented by: Sodium Chloride () 10 ml IVP BID [facility] Last Admin: 07/24/19 10:56 Dose: 10 ml Documented by: Tamsulosin HCl (Flomax) 0.4 mg PO DAILY [facility] Last Admin: 07/24/19 10:52 Dose: 0.4 mg Documented by: Warfarin Sodium (Coumadin) 5 mg PO [id number] [facility] Last Admin: 07/23/19 16:04 Dose: 5 mg Documented by: Warfarin Sodium (Coumadin) 2 mg PO [id number] [facility] Objective - Vital Signs Vital Signs: Vital Signs - Last 24 Hrs Temp Pulse Pulse Resp BP Pulse Ox 07/24/19 08:00 97.9 F 76 16 115/67 97 07/23/19 20:00 98.5 F 72 17 115/67 97 - General General Appearance: Alert, Oriented x3, Cooperative, No acute distress Limitations: No limitations - Head Head exam: Atraumatic, Normocephalic - Eye Eye exam: Normal appearance, EOMI - ENT ENT exam: Mucous membranes moist - Neck Neck exam: Normal inspection - Respiratory Respiratory exam: Normal lung sounds bilaterally - Cardiovascular Cardiovascular Exam: Normal rhythm, Normal heart sounds Peripheral Pulses: 1+: Dorsalis Pedis (R) (faint), Dorsalis Pedis (L) (faint), 3+: Radial (R), Radial (L) - GI/Abdominal GI/Abdominal exam: Soft, Normal bowel sounds - Extremities Extremities exam: Joint swelling (right medial foot swelling), Other (right foot Charcot deformity). negative: Pedal edema - Neurological Neurological exam: Alert, CN II-XII intact - Psychiatric Psychiatric exam: Normal affect, Normal mood - Skin Skin exam: Other (medial planar right foot with open wound, approx [id number] open area, Aquacel packing in place,no erythema, no purulence, no odor) H&P Results - Labs Result Diagrams: 07/20/19 06:05 07/20/19 06:05 Labs Last 24 Hours: Laboratory Results - last 24 hr 07/23/19 07/23/19 07/23/19 12:46 17:17 22:40 PT INR POC Glucose 131 H 155 H 175 H 07/24/19 07/24/19 07/24/19 06:25 08:56 12:22 PT 14.0 H INR 1.4 POC Glucose 138 H 148 H Discharge Potential - Discharge Needs Community Services Used Prior to Admission: None Patient Discharge Plan Description: Return Home Community Services Needed at Discharge: IV Therapy, Physical Therapy Plan - Swing Bed Certification Initial Certification Due: 07/19/19 14 Day Re-Cert Due: 08/02/19 44 Day Re-Cert Due: 09/01/19 74 Day Re-Cert Due: 10/01/19 - Detailed Diagnosis and Plan (1) Diabetic ulcer of right foot Current Visit: Yes Status: Acute Qualifiers: Diabetes mellitus type: type 2 Non-pressure ulcer stage: with necrosis of bone Base Code: E11.621 - TYPE 2 DIABETES MELLITUS WITH FOOT ULCER; L97.519 - NON-PRS CHRONIC ULCER OTH PRT RIGHT FOOT W UNSP SEVERITY Comment: 07/20/19 - Foot wound culture + MRSA and pseudomonas - Dressing changes with Aquacel silver as ordered - Daptomycin, Cefipime, Levaquin x 6 weeks (2) Full code status Current Visit: Yes Status: Acute Base Code: Z78.9 - OTHER SPECIFIED HEALTH STATUS (3) MRSA bacteremia Current Visit: Yes Status: Acute Base Code: R78.81 - BACTEREMIA Comment: 07/20/19 - Daptomycin, Cefepime and Levquin for total 6 week treatment 07/16/19-08/26/19 - Follow up Dr Lucero in 6 weeks - Weekly CBC, CMP, CRP, ESR, CK --> BUN/cr 49/2.0, GRF 36 -->CRP 6.38 -->ESR 104 - Repeat blood cuture at [facility] negative (4) Physical deconditioning Current Visit: Yes Status: Acute Base Code: R53.81 - OTHER MAL[place]ISE Comment: 07/20/19 - PT/OT evaluation - (5) Renal insufficiency Current Visit: Yes Status: Acute Base Code: N28.9 - DISORDER OF KIDNEY AND URETER, UNSPECIFIED Comment: 07/20/19 - Cr 2.02 07/19 at [facility], will be checking weekly --> Cr 2.0, GRF 36 - Renal US at [facility] with no acute findings, PTH normal - Meloxican, bumex and potassium on hold until renal status improves - [facility] Nephrology group manages, will need to obtain baseline cr and GFR for comparison (6) T2DM (type 2 diabetes mellitus) Current Visit: Yes Status: Acute Qualifiers: Diabetes mellitus intermission coordinator insulin use: with intermission coordinator use Diabetes mellitus complication status: with neurologic complications Diabetes mellitus complication detail: with polyneuropathy Qualified Code(s): E11.42 - Type 2 diabetes mellitus with diabetic polyneuropathy; Z79.4 - truck terminal manager (current) use of insulin Base Code: E11.9 - TYPE 2 DIABETES MELLITUS WITHOUT COMPLICATIONS Comment: 07/20/19 - Will need tight control - Accu check AC/HS with sliding scale - Levemir 68 units BID (home dosing), decreased to 35 units BID in hospital, will continue new dose and adjust as needed , Ozempic 1mg weekly - BG 139
[2019-07-24] MEDS: WARFARIN 5 MG TAB PO SCH (17:34)
[2019-07-24] MEDS: WARFARIN 1 MG TABLET PO SCH (17:35)
[2019-07-24] MEDS: DAPTOMYCIN 500 MG/VIAL IV SCH (22:40)
[2019-07-24] MEDS: SIMVASTATIN 20 MG TABLET PO SCH (22:51)
[2019-07-25] MEDS: NOVOLOG FLEXPEN (INSULIN ASPART) 100 UNITS/ML SQ SCH ×4 (08:08→22:14)
[2019-07-25 09:05] LABS: INR 1.5; PROTHROMBIN TIME (PATIENT) 14.9 SECONDS (9.5-12.1)
[2019-07-25] MEDS: CEFEPIME HCL 2 GM in 0.9 % SODIUM CHLORIDE 100ML 100 ML IVPB SCH ×2 (10:37→21:48)
[2019-07-25] MEDS: LEVEMIR FLEXTOUCH 100 UNIT/ML INSULIN PEN SQ SCH ×2 (10:37→22:11)
[2019-07-25] MEDS: ALLOPURINOL 100 MG TAB PO SCH (10:42)
[2019-07-25] MEDS: FERROUS SULFATE 325 MG TAB PO SCH (10:42)
[2019-07-25] MEDS: METOPROLOL SUCC 50 MG TABLET PO SCH (10:43)
[2019-07-25] MEDS: COLCHICINE 0.6 MG TABLET PO SCH (10:43)
[2019-07-25] MEDS: ASPIRIN 325 MG TAB ENTERIC-COATED PO SCH (10:43)
[2019-07-25] MEDS: TAMSULOSIN HCL 0.4 MG CAP.ER.24H PO SCH (10:43)
[2019-07-25] MEDS: PENTOXIFYLLINE 400 MG PO SCH ×2 (10:43→21:40)
[2019-07-25] MEDS: HEPARIN SODIUM FLUSH 100 UNITS/ML SYR 5ML IVP SCH (10:46)
[2019-07-25] MEDS: 0.9 % SODIUM CHLORIDE 10ML SYR IVP SCH ×4 (10:46→21:41)
[2019-07-25] MEDS: HEPARIN SODIUM FLUSH 100 UNITS/ML SYR 5ML IV SCH ×2 (10:46→21:41)
[2019-07-25] MEDS: ENOXAPARIN 60 MG/0.6 ML SYR SQ SCH ×2 (10:51→22:15)
[2019-07-25] MEDS: WARFARIN 5 MG TAB PO SCH (16:52)
[2019-07-25] MEDS: WARFARIN 1 MG TABLET PO SCH (16:52)
[2019-07-25] MEDS: LEVOFLOXACIN 500 MG TABLET PO SCH (21:39)
[2019-07-25] MEDS: DAPTOMYCIN 500 MG/VIAL IV SCH (21:39)
[2019-07-25] MEDS: SIMVASTATIN 20 MG TABLET PO SCH (21:42)
[2019-07-26 06:47] LABS: INR 1.4
[2019-07-26] MEDS: NOVOLOG FLEXPEN (INSULIN ASPART) 100 UNITS/ML SQ SCH ×4 (08:22→21:31)
[2019-07-26] MEDS: LEVEMIR FLEXTOUCH 100 UNIT/ML INSULIN PEN SQ SCH ×3 (08:27→21:33)
[2019-07-26] MEDS: 0.9 % SODIUM CHLORIDE 10ML SYR IVP SCH ×4 (09:15→21:19)
[2019-07-26] MEDS: FERROUS SULFATE 325 MG TAB PO SCH (09:16)
[2019-07-26] MEDS: COLCHICINE 0.6 MG TABLET PO SCH (09:16)
[2019-07-26] MEDS: HEPARIN SODIUM FLUSH 100 UNITS/ML SYR 5ML IVP SCH ×2 (09:16→21:34)
[2019-07-26] MEDS: TAMSULOSIN HCL 0.4 MG CAP.ER.24H PO SCH (09:16)
[2019-07-26] MEDS: METOPROLOL SUCC 50 MG TABLET PO SCH (09:16)
[2019-07-26] MEDS: ASPIRIN 325 MG TAB ENTERIC-COATED PO SCH (09:16)
[2019-07-26] MEDS: ALLOPURINOL 100 MG TAB PO SCH (09:16)
[2019-07-26] MEDS: HEPARIN SODIUM FLUSH 100 UNITS/ML SYR 5ML IV SCH ×2 (09:16→21:37)
[2019-07-26] MEDS: PENTOXIFYLLINE 400 MG PO SCH ×2 (09:17→21:18)
[2019-07-26] MEDS: CEFEPIME HCL 2 GM in 0.9 % SODIUM CHLORIDE 100ML 100 ML IVPB SCH ×2 (09:21→21:16)
[2019-07-26 12:53] LABS: ABSOLUTE NEUTROPHIL COUNT 6.17; BASO % 0.7 % (0-6); EOS % 1.8 % (0-6); HEMATOCRIT 32.1 % (42.0-52.0); HEMOGLOBIN 9.6 gm/dl (14.0-18.0); LYMPH % 14.8 % (16-45); MEAN CELL VOLUME 84.5 fl (81-97); MEAN CORPUSCULAR HGB CONC 29.9 g/dl (32-36); MEAN PLATELET VOLUME 10.4 fl (7.4-10.4); MONO % 7.7 % (0-9); PLATELET COUNT 290 K/uL (130-400); RED CELL DISTRIBUTION WIDTH 15.9 % (11.5-14.5); WHITE BLOOD COUNT W/O DIFF 8.2 K/uL (4.2-12.2)
[2019-07-26 13:06] LABS: MEAN CORPUSCULAR HEMOGLOBIN 25.2 pg (27-33)
[2019-07-26] MEDS: WARFARIN 1 MG TABLET PO SCH (15:15)
[2019-07-26] MEDS: WARFARIN 5 MG TAB PO SCH (15:15)
--- NOTE | 2019-07-26 17:29 | Physician Progress Note ---
Subjective - Date Date of Progress Note: 07/26/19 - Admitting Diagnosis Diagnosis: Physical deconditioning. Right foot diabetic foot ulcer with infection. Bacteriemia - Subjective Events since last encounter: Bleeding around the pic sit in the right upper arm. Removed the dressing and no active bleeding and the area cleaned and redressed the site by Patti OCONNOR. PT inr 1.4 and concerned about HIT so ordered a cbc and will stop the lovenox. Nursing Care Plan Problem List Activity Intolerance (Swing Bed) Start: 07/19/19 17:51 Freq: Status: Active Protocol: Created 07/19/19 17:51 RCS (Rec: 07/19/19 17:51 RCS ASTS-1) Altered Thought Process (Fall Risk) Start: 07/19/19 17:24 Freq: Status: Active Protocol: Created 07/19/19 17:24 RCS (Rec: 07/19/19 17:24 RCS ASTS-1) Impaired Mobility (Fall Risk) Start: 07/19/19 17:24 Freq: Status: Active Protocol: Created 07/19/19 17:24 RCS (Rec: 07/19/19 17:24 RCS ASTS-1) Knowledge Deficit (Swing Bed) Start: 07/19/19 17:51 Freq: Status: Active Protocol: Created 07/19/19 17:51 RCS (Rec: 07/19/19 17:51 RCS ASTS-1) Pain (Swing Bed) Start: 07/19/19 17:51 Freq: Status: Active Protocol: Created 07/19/19 17:51 RCS (Rec: 07/19/19 17:51 RCS ASTS-1) Risk for Injury (Fall Risk) Start: 07/19/19 17:24 Freq: Status: Active Protocol: Created 07/19/19 17:24 RCS (Rec: 07/19/19 17:24 RCS ASTS-1) General - Cognitive Patterns Speech: Normal Thought Process: Intact Thought Content: Normal - Communication Select best description of speech pattern: Clear Speech Ability to express ideas and wants: Understood Understanding verbal content: Understands - Mood and Behavior Patterns Appearance: Well Groomed Mood: Normal Attitude: Cooperative Motor Activity: Calm Affect: Appropriate Hallucinations: Denies - Physical Functioning Activity Level: Up as tolerated Turning: Self ad andrew ROM Ability: Within Normal Limits Ambulation Ability: Independent Bed Mobility: Independent Transfer Ability: Independent Bathing Ability: Independent Personal Hygiene: Independent Dressing Ability: Independent Eating (Feeding) Ability: Independent Toileting Ability: Independent Administer Own Medication: Independent - Continence Bowel Pattern: Normal for Patient Bladder Pattern: Normal Meds/Allergies - Allergies Allergies Allergy/AdvReac Type Severity Reaction Status Date / Time iodine Allergy Severe ANAPHYLAXIS Verified 07/08/19 09:35 erythromycin base Allergy Mild VOMITING Verified 07/08/19 09:35 [Erythromycin Base] - Active Medications Current Medications Acetaminophen (Tylenol 325mg) 325 mg PO Q6H PRN PRN Reason: PAIN - MILD (1-4) Hydrocodone Bitart/Acetaminophen ([place] 5mg/325mg) 1 each PO Q6H PRN PRN Reason: PAIN - MODERATE (5-7) Last Admin: 07/21/19 20:54 Dose: 1 each Documented by: Allopurinol (Zyloprim) 300 mg PO DAILY [facility] Last Admin: 07/26/19 09:16 Dose: 300 mg Documented by: Aspirin (Ecotrin (Ec)) 325 mg PO DAILY [facility] Last Admin: 07/26/19 09:16 Dose: 325 mg Documented by: Colchicine (Colcrys) 0.6 mg PO DAILY [facility] Last Admin: 07/26/19 09:16 Dose: 0.6 mg Documented by: Daptomycin (Cubicin) 750 mg IV 2200 [facility] Last Admin: 07/25/19 21:39 Dose: 750 mg Documented by: Ferrous Sulfate (Iron) 325 mg PO DAILY [facility] Last Admin: 07/26/19 09:16 Dose: 325 mg Documented by: Heparin Sodium (Porcine) () 500 unit IVP ASDIR [facility] Last Admin: 07/26/19 09:16 Dose: 500 unit Documented by: Heparin Sodium (Porcine) () 500 unit IV BID [facility] Last Admin: 07/26/19 09:16 Dose: 500 unit Documented by: CEFEPIME HCL 2 gm/ Sodium (Chloride) 100 mls @ 200 mls/hr IVPB Q12H [facility] Last Infusion: 07/26/19 10:00 Dose: Infused Documented by: Insulin Aspart (Novolog Flexpen) 1 unit SQ QIDWMHS [facility]; Protocol Last Admin: 07/26/19 14:44 Dose: Not Given Documented by: Insulin Detemir (Levemir Flextouch) 35 unit SQ BID [facility] Last Admin: 07/26/19 09:18 Dose: Not Given Documented by: Levofloxacin (Levaquin Tab) 750 mg PO Q48H [facility] Last Admin: 07/25/19 21:39 Dose: 750 mg Documented by: Metoprolol Succinate (Toprol Xl) 100 mg PO DAILY [facility] Last Admin: 07/26/19 09:16 Dose: 100 mg Documented by: Patient Own Med: (Pentoxifylline 400mg) 1 each PO BID [facility] Last Admin: 07/26/19 09:17 Dose: 1 each Documented by: Patient Own Med: (Ozempic 2mg/1.5ml) 1 each SC WEEKLY [facility] Simvastatin (Zocor) 20 mg PO QHS [facility] Last Admin: 07/25/19 21:42 Dose: 20 mg Documented by: Sodium Chloride () 10 ml IVP BID [facility] Last Admin: 07/26/19 09:15 Dose: 10 ml Documented by: Sodium Chloride () 10 ml IVP BID [facility] Last Admin: 07/26/19 09:15 Dose: 10 ml Documented by: Tamsulosin HCl (Flomax) 0.4 mg PO DAILY [facility] Last Admin: 07/26/19 09:16 Dose: 0.4 mg Documented by: Warfarin Sodium (Coumadin) 5 mg PO [id number] [facility] Last Admin: 07/26/19 15:15 Dose: 5 mg Documented by: Warfarin Sodium (Coumadin) 3 mg PO [id number] [facility] Last Admin: 07/26/19 15:15 Dose: 3 mg Documented by: Objective - Vital Signs Vital Signs: Vital Signs - Last 24 Hrs Temp Pulse Pulse Resp BP Pulse Ox 07/26/19 07:34 97.9 F 73 16 126/71 97 07/25/19 20:00 98.1 F 74 14 134/59 100 - General General Appearance: Alert, Oriented x3, Cooperative, No acute distress Limitations: No limitations - Head Head exam: Atraumatic, Normocephalic - Eye Eye exam: Normal appearance, EOMI - ENT ENT exam: Mucous membranes moist - Neck Neck exam: Normal inspection - Respiratory Respiratory exam: Normal lung sounds bilaterally - Cardiovascular Cardiovascular Exam: Normal rhythm, Normal heart sounds Peripheral Pulses: 1+: Dorsalis Pedis (R) (faint), Dorsalis Pedis (L) (faint), 3+: Radial (R), Radial (L) - GI/Abdominal GI/Abdominal exam: Soft, Normal bowel sounds - Extremities Extremities exam: Joint swelling (right medial foot swelling), Other (right foot Charcot deformity). negative: Pedal edema - Neurological Neurological exam: Alert, CN II-XII intact - Psychiatric Psychiatric exam: Normal affect, Normal mood - Skin Skin exam: Other (medial planar right foot with open wound, approx [id number] open area, Aquacel packing in place,no erythema, no purulence, no odor, pic site in the right upper arm examined and no active bleeding on 07/26/2019) H&P Results - Labs Result Diagrams: 07/26/19 06:20 07/20/19 06:05 Labs Last 24 Hours: Laboratory Results - last 24 hr 07/25/19 07/26/19 07/26/19 17:16 06:20 06:20 WBC 8.2 RBC 3.80 L Hgb 9.6 L Hct 32.1 L MCV 84.5 MCH 25.2 L MCHC 29.9 L RDW 15.9 H Plt Count 290 MPV 10.4 Gran % 75.0 Lymphocytes % 14.8 L Monocytes % 7.7 Eosinophils % 1.8 Basophils % 0.7 Absolute Neutrophils 6.17 PT 14.0 H INR 1.4 POC Glucose 158 H 07/26/19 07:33 WBC RBC Hgb Hct MCV MCH MCHC RDW Plt Count MPV Gran % Lymphocytes % Monocytes % Eosinophils % Basophils % Absolute Neutrophils PT INR POC Glucose 145 H platelet count didn't drop but will stop lovenox - Chest X-Ray In Last 90 Days Additional Comments: coumadin increased to 8 mg per day. 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 Base Code: E11.621 - TYPE 2 DIABETES MELLITUS WITH FOOT ULCER; L97.519 - NON-PRS CHRONIC ULCER OTH PRT RIGHT FOOT W UNSP SEVERITY Comment: 07/20/19 - Foot wound culture + MRSA and pseudomonas - Dressing changes with Aquacel silver as ordered - Daptomycin, Cefipime, Levaquin x 6 weeks (2) Full code status Current Visit: Yes Status: Acute Base Code: Z78.9 - OTHER SPECIFIED HEALTH STATUS (3) MRSA bacteremia Current Visit: Yes Status: Acute Base Code: R78.81 - BACTEREMIA Comment: 07/20/19 - Daptomycin, Cefepime and Levquin for total 6 week treatment 07/16/19-08/26/19 - Follow up Dr Lucero in 6 weeks - Weekly CBC, CMP, CRP, ESR, CK --> BUN/cr 49/2.0, GRF 36 -->CRP 6.38 -->ESR 104 - Repeat blood cuture at [facility] negative (4) Physical deconditioning Current Visit: Yes Status: Acute Base Code: R53.81 - OTHER MALAISE Comment: 07/20/19 - PT/OT evaluation - (5) Renal insufficiency Current Visit: Yes Status: Acute Base Code: N28.9 - DISORDER OF KIDNEY AND URETER, UNSPECIFIED Comment: 07/20/19 - Cr 2.02 07/19 at [facility], will be checking weekly --> Cr 2.0, GRF 36 - Renal US at [facility] with no acute findings, PTH normal - Meloxican, bumex and potassium on hold until renal status improves - [facility] [place] manages, will need to obtain baseline cr and GFR for comparison (6) T2DM (type 2 diabetes mellitus) Current Visit: Yes Status: Acute Qualifiers: Diabetes mellitus termite control service representative insulin use: with residential use Diabetes mellitus complication status: with neurologic complications Diabetes mellitus complication detail: with polyneuropathy Qualified Code(s): E11.42 - Type 2 diabetes mellitus with diabetic polyneuropathy; Z79.4 - terminal operator (current) use of insulin Base Code: E11.9 - TYPE 2 DIABETES MELLITUS WITHOUT COMPLICATIONS Comment: 07/20/19 - Will need tight control - Accu check AC/HS with sliding scale - Levemir 68 units BID (home dosing), decreased to 35 units BID in hospital, will continue new dose and adjust as needed , Ozempic 1mg weekly - BG 139 (7) Bleeding Current Visit: Yes Status: Acute Base Code: R58 - HEMORRHAGE, NOT ELSEWHERE CLASSIFIED Priority: Medium Comment: Bleeding at the pic site and changed the dressing and no active bleeding will check a cbc to look at the platelet count stop lovenox increase coumadin to 8 mg to get the INR up daily PT levels
[2019-07-26] MEDS: DAPTOMYCIN 500 MG/VIAL IV SCH (21:17)
[2019-07-26] MEDS: SIMVASTATIN 20 MG TABLET PO SCH (21:20)
[2019-07-27 07:58] LABS: ABSOLUTE NEUTROPHIL COUNT 5.17; BASO % 0.4 % (0-6); GRAN % 75.4 % (47-80); HEMATOCRIT 30.6 % (42.0-52.0); HEMOGLOBIN 9.2 gm/dl (14.0-18.0); LYMPH % 15.1 % (16-45); MEAN CELL VOLUME 83.4 fl (81-97); MEAN CORPUSCULAR HGB CONC 30.1 g/dl (32-36); MEAN PLATELET VOLUME 9.9 fl (7.4-10.4); MONO % 7.1 % (0-9); PLATELET COUNT 245 K/uL (130-400); RED BLOOD COUNT 3.67 M/uL (4.40-5.70); RED CELL DISTRIBUTION WIDTH 15.8 % (11.5-14.5); WHITE BLOOD COUNT W/O DIFF 6.9 K/uL (4.2-12.2)
[2019-07-27] MEDS: NOVOLOG FLEXPEN (INSULIN ASPART) 100 UNITS/ML SQ SCH ×4 (08:08→21:32)
[2019-07-27 08:11] LABS: INR 1.4; PROTHROMBIN TIME (PATIENT) 14.2 SECONDS (9.5-12.1)
[2019-07-27 08:19] LABS: ALB/GLOB RATIO 0.8 (1.1-1.8); ALBUMIN 3.4 g/dL (4.0-5.0); BILIRUBIN,TOTAL 0.3 mg/dL (0.2-1.0); C-REACTIVE PROTEIN 1.6 mg/dL (<0.5); CREATININE 2.1 mg/dL (0.7-1.2); TOTAL PROTEIN 7.6 g/dL (6.6-8.7)
[2019-07-27 08:33] LABS: ERYTHROCYTE SEDIMENTATION RATE 105 mm/hr (0-20)
[2019-07-27] MEDS: 0.9 % SODIUM CHLORIDE 10ML SYR IVP SCH ×4 (09:52→21:26)
[2019-07-27] MEDS: CEFEPIME HCL 2 GM in 0.9 % SODIUM CHLORIDE 100ML 100 ML IVPB SCH ×2 (09:53→21:26)
[2019-07-27] MEDS: ALLOPURINOL 100 MG TAB PO SCH (09:56)
[2019-07-27] MEDS: ASPIRIN 325 MG TAB ENTERIC-COATED PO SCH (09:57)
[2019-07-27] MEDS: FERROUS SULFATE 325 MG TAB PO SCH (09:57)
[2019-07-27] MEDS: COLCHICINE 0.6 MG TABLET PO SCH (09:57)
[2019-07-27] MEDS: HEPARIN SODIUM FLUSH 100 UNITS/ML SYR 5ML IVP SCH ×3 (09:58→21:28)
[2019-07-27] MEDS: TAMSULOSIN HCL 0.4 MG CAP.ER.24H PO SCH (09:58)
[2019-07-27] MEDS: PENTOXIFYLLINE 400 MG PO SCH ×2 (09:58→21:29)
[2019-07-27] MEDS: METOPROLOL SUCC 50 MG TABLET PO SCH (09:58)
[2019-07-27] MEDS: LEVEMIR FLEXTOUCH 100 UNIT/ML INSULIN PEN SQ SCH ×2 (09:59→21:31)
[2019-07-27] MEDS: HEPARIN SODIUM FLUSH 100 UNITS/ML SYR 5ML IV SCH ×2 (10:55→21:28)
[2019-07-27] MEDS: WARFARIN 5 MG TAB PO SCH (19:00)
[2019-07-27] MEDS: WARFARIN 1 MG TABLET PO SCH (19:00)
[2019-07-27] MEDS: DAPTOMYCIN 500 MG/VIAL IV SCH (21:26)
[2019-07-27] MEDS: LEVOFLOXACIN 500 MG TABLET PO SCH (21:28)
[2019-07-27] MEDS: SIMVASTATIN 20 MG TABLET PO SCH (21:29)
[2019-07-28 07:00] LABS: INR 1.5; PROTHROMBIN TIME (PATIENT) 14.8 SECONDS (9.5-12.1)
[2019-07-28] MEDS: NOVOLOG FLEXPEN (INSULIN ASPART) 100 UNITS/ML SQ SCH ×4 (09:16→21:27)
[2019-07-28] MEDS: 0.9 % SODIUM CHLORIDE 10ML SYR IVP SCH ×4 (09:46→21:21)
[2019-07-28] MEDS: CEFEPIME HCL 2 GM in 0.9 % SODIUM CHLORIDE 100ML 100 ML IVPB SCH ×2 (09:47→21:21)
[2019-07-28] MEDS: COLCHICINE 0.6 MG TABLET PO SCH (09:47)
[2019-07-28] MEDS: HEPARIN SODIUM FLUSH 100 UNITS/ML SYR 5ML IVP SCH ×2 (09:48→21:22)
[2019-07-28] MEDS: ASPIRIN 325 MG TAB ENTERIC-COATED PO SCH (09:48)
[2019-07-28] MEDS: HEPARIN SODIUM FLUSH 100 UNITS/ML SYR 5ML IV SCH ×2 (09:48→21:28)
[2019-07-28] MEDS: FERROUS SULFATE 325 MG TAB PO SCH (09:48)
[2019-07-28] MEDS: TAMSULOSIN HCL 0.4 MG CAP.ER.24H PO SCH (09:48)
[2019-07-28] MEDS: LEVEMIR FLEXTOUCH 100 UNIT/ML INSULIN PEN SQ SCH ×2 (09:49→21:23)
[2019-07-28] MEDS: PENTOXIFYLLINE 400 MG PO SCH ×2 (09:51→21:22)
[2019-07-28] MEDS: METOPROLOL SUCC 50 MG TABLET PO SCH (09:51)
[2019-07-28] MEDS: ALLOPURINOL 100 MG TAB PO SCH (09:52)
[2019-07-28] MEDS: WARFARIN 1 MG TABLET PO SCH (16:36)
[2019-07-28] MEDS: WARFARIN 5 MG TAB PO SCH (16:37)
[2019-07-28] MEDS: DAPTOMYCIN 500 MG/VIAL IV SCH (21:20)
[2019-07-28] MEDS: SIMVASTATIN 20 MG TABLET PO SCH (21:22)
[2019-07-29 06:42] LABS: INR 1.6; PROTHROMBIN TIME (PATIENT) 16.5 SECONDS (9.5-12.1)
[2019-07-29] MEDS: NOVOLOG FLEXPEN (INSULIN ASPART) 100 UNITS/ML SQ SCH ×4 (08:05→21:56)
[2019-07-29] MEDS: LEVEMIR FLEXTOUCH 100 UNIT/ML INSULIN PEN SQ SCH ×2 (10:30→21:55)
[2019-07-29] MEDS: CEFEPIME HCL 2 GM in 0.9 % SODIUM CHLORIDE 100ML 100 ML IVPB SCH ×2 (10:36→21:32)
[2019-07-29] MEDS: FERROUS SULFATE 325 MG TAB PO SCH (10:46)
[2019-07-29] MEDS: TAMSULOSIN HCL 0.4 MG CAP.ER.24H PO SCH (10:46)
[2019-07-29] MEDS: ASPIRIN 325 MG TAB ENTERIC-COATED PO SCH (10:46)
[2019-07-29] MEDS: METOPROLOL SUCC 50 MG TABLET PO SCH (10:46)
[2019-07-29] MEDS: ALLOPURINOL 100 MG TAB PO SCH (10:46)
[2019-07-29] MEDS: COLCHICINE 0.6 MG TABLET PO SCH (10:46)
[2019-07-29] MEDS: HEPARIN SODIUM FLUSH 100 UNITS/ML SYR 5ML IV SCH ×2 (10:47→22:19)
[2019-07-29] MEDS: 0.9 % SODIUM CHLORIDE 10ML SYR IVP SCH ×4 (10:47→22:16)
[2019-07-29] MEDS: HEPARIN SODIUM FLUSH 100 UNITS/ML SYR 5ML IVP SCH (10:47)
[2019-07-29] MEDS: PENTOXIFYLLINE 400 MG PO SCH ×2 (10:48→22:15)
[2019-07-29] MEDS: WARFARIN 5 MG TAB PO SCH (16:24)
[2019-07-29] MEDS: WARFARIN 1 MG TABLET PO SCH (16:25)
[2019-07-29] MEDS: DAPTOMYCIN 500 MG/VIAL IV SCH (21:23)
[2019-07-29] MEDS: LEVOFLOXACIN 500 MG TABLET PO SCH (21:25)
[2019-07-29] MEDS: SIMVASTATIN 20 MG TABLET PO SCH (21:26)
[2019-07-29] MEDS: HYDROCODONE/APAP 5/325MG TABLET PO PRN (21:38)
[2019-07-30] MEDS: NOVOLOG FLEXPEN (INSULIN ASPART) 100 UNITS/ML SQ SCH ×4 (08:13→22:16)
[2019-07-30] MEDS: LEVEMIR FLEXTOUCH 100 UNIT/ML INSULIN PEN SQ SCH ×3 (08:14→22:15)
[2019-07-30 08:31] LABS: ABSOLUTE NEUTROPHIL COUNT 4.71; BASO % 0.5 % (0-6); EOS % 2.9 % (0-6); GRAN % 75.2 % (47-80); HEMATOCRIT 31.9 % (42.0-52.0); HEMOGLOBIN 9.6 gm/dl (14.0-18.0); LYMPH % 12.8 % (16-45); MEAN CELL VOLUME 83.9 fl (81-97); MEAN CORPUSCULAR HGB CONC 30.1 g/dl (32-36); MEAN PLATELET VOLUME 9.9 fl (7.4-10.4); MONO % 8.6 % (0-9); PLATELET COUNT 198 K/uL (130-400); RED CELL DISTRIBUTION WIDTH 16.4 % (11.5-14.5); WHITE BLOOD COUNT W/O DIFF 6.3 K/uL (4.2-12.2)
[2019-07-30 08:32] LABS: MEAN CORPUSCULAR HEMOGLOBIN 25.2 pg (27-33)
[2019-07-30 08:41] LABS: CREATININE 1.9 mg/dL (0.7-1.2)
[2019-07-30 09:46] LABS: INR 1.7; PROTHROMBIN TIME (PATIENT) 17.3 SECONDS (9.5-12.1)
[2019-07-30] MEDS: CEFEPIME HCL 2 GM in 0.9 % SODIUM CHLORIDE 100ML 100 ML IVPB SCH ×2 (11:02→21:42)
[2019-07-30] MEDS: PENTOXIFYLLINE 400 MG PO SCH ×2 (11:03→22:17)
[2019-07-30] MEDS: ALLOPURINOL 100 MG TAB PO SCH (11:03)
[2019-07-30] MEDS: METOPROLOL SUCC 50 MG TABLET PO SCH (11:03)
[2019-07-30] MEDS: TAMSULOSIN HCL 0.4 MG CAP.ER.24H PO SCH (11:03)
[2019-07-30] MEDS: ASPIRIN 325 MG TAB ENTERIC-COATED PO SCH (11:03)
[2019-07-30] MEDS: FERROUS SULFATE 325 MG TAB PO SCH (11:03)
[2019-07-30] MEDS: COLCHICINE 0.6 MG TABLET PO SCH (11:03)
[2019-07-30] MEDS: HEPARIN SODIUM FLUSH 100 UNITS/ML SYR 5ML IV SCH ×2 (12:10→22:15)
[2019-07-30] MEDS: 0.9 % SODIUM CHLORIDE 10ML SYR IVP SCH ×4 (12:10→21:43)
[2019-07-30] MEDS: HEPARIN SODIUM FLUSH 100 UNITS/ML SYR 5ML IVP SCH (12:11)
[2019-07-30] MEDS: WARFARIN 5 MG TAB PO SCH (16:14)
[2019-07-30] MEDS: WARFARIN 1 MG TABLET PO SCH (16:14)
[2019-07-30] MEDS: DAPTOMYCIN 500 MG/VIAL IV SCH (21:41)
[2019-07-30] MEDS: SIMVASTATIN 20 MG TABLET PO SCH (21:45)
[2019-07-31] MEDS: NOVOLOG FLEXPEN (INSULIN ASPART) 100 UNITS/ML SQ SCH ×4 (08:45→21:31)
[2019-07-31] MEDS: LEVEMIR FLEXTOUCH 100 UNIT/ML INSULIN PEN SQ SCH ×3 (08:46→22:02)
[2019-07-31] MEDS ORDERED: LEVEMIR FLEXTOUCH 100 UNIT/ML INSULIN PEN SQ ONE (09:27)
--- NOTE | 2019-07-31 10:00 | Physician Progress Note ---
Subjective - Date Date of Progress Note: 07/31/19 - Admitting Diagnosis Diagnosis: Physical deconditioning. Right foot diabetic foot ulcer with infection. Bacteriemia - Subjective Nursing Care Plan Problem List Activity Intolerance (Swing Bed) Start: 07/19/19 17:51 Freq: Status: Active Protocol: Created 07/19/19 17:51 RCS (Rec: 07/19/19 17:51 RCS ASTS-1) Altered Thought Process (Fall Risk) Start: 07/19/19 17:24 Freq: Status: Active Protocol: Created 07/19/19 17:24 RCS (Rec: 07/19/19 17:24 RCS ASTS-1) Impaired Mobility (Fall Risk) Start: 07/19/19 17:24 Freq: Status: Active Protocol: Created 07/19/19 17:24 RCS (Rec: 07/19/19 17:24 RCS ASTS-1) Knowledge Deficit (Swing Bed) Start: 07/19/19 17:51 Freq: Status: Active Protocol: Created 07/19/19 17:51 RCS (Rec: 07/19/19 17:51 RCS ASTS-1) Pain (Swing Bed) Start: 07/19/19 17:51 Freq: Status: Active Protocol: Created 07/19/19 17:51 RCS (Rec: 07/19/19 17:51 RCS ASTS-1) Risk for Injury (Fall Risk) Start: 07/19/19 17:24 Freq: Status: Active Protocol: Created 07/19/19 17:24 RCS (Rec: 07/19/19 17:24 RCS ASTS-1) Subjective: Pt states that he is doing well. He is anxious to leave. No complaints today. States that he is usually on 64 units of long acting insulin BID and doesn't use novolog. - Subjective Detail Gastrointestinal: Denies: Constipation, Diarrhea, Vomiting General - Cognitive Patterns Speech: Normal Thought Process: Intact Thought Content: Normal - Communication Select best description of speech pattern: Clear Speech Ability to express ideas and wants: Understood Understanding verbal content: Understands - Mood and Behavior Patterns Appearance: Well Groomed Mood: Normal Attitude: Cooperative Motor Activity: Calm Affect: Appropriate Hallucinations: Denies - Physical Functioning Activity Level: Up as tolerated Turning: Self ad andrew ROM Ability: Within Normal Limits Ambulation Ability: Independent Bed Mobility: Independent Transfer Ability: Independent Bathing Ability: Independent Personal Hygiene: Independent Dressing Ability: Independent Eating (Feeding) Ability: Independent Toileting Ability: Independent Administer Own Medication: Independent Care Ability Comment: needs assistance with dressing changes and antibiotic administration - Continence Bowel Pattern: Normal for Patient Bladder Pattern: Normal Meds/Allergies - Allergies Allergies Allergy/AdvReac Type Severity Reaction Status Date / Time iodine Allergy Severe ANAPHYLAXIS Verified 07/08/19 09:35 erythromycin base Allergy Mild VOMITING Verified 07/08/19 09:35 [Erythromycin Base] - Active Medications Current Medications Acetaminophen (Tylenol 325mg) 325 mg PO Q6H PRN PRN Reason: PAIN - MILD (1-4) Hydrocodone Bitart/Acetaminophen ([place] 5mg/325mg) 1 each PO Q6H PRN PRN Reason: PAIN - MODERATE (5-7) Last Admin: 07/29/19 21:38 Dose: 1 each Documented by: Allopurinol (Zyloprim) 300 mg PO DAILY [facility] Last Admin: 07/30/19 11:03 Dose: 300 mg Documented by: Aspirin (Ecotrin (Ec)) 325 mg PO DAILY [facility] Last Admin: 07/30/19 11:03 Dose: 325 mg Documented by: Colchicine (Colcrys) 0.6 mg PO DAILY [facility] Last Admin: 07/30/19 11:03 Dose: 0.6 mg Documented by: Daptomycin (Cubicin) 750 mg IV 2200 [facility] Last Admin: 07/30/19 21:41 Dose: 750 mg Documented by: Ferrous Sulfate (Iron) 325 mg PO DAILY [facility] Last Admin: 07/30/19 11:03 Dose: 325 mg Documented by: Heparin Sodium (Porcine) () 500 unit IVP ASDIR [facility] Last Admin: 07/30/19 12:11 Dose: 500 unit Documented by: Heparin Sodium (Porcine) () 500 unit IV BID [facility] Last Admin: 07/30/19 22:15 Dose: 500 unit Documented by: CEFEPIME HCL 2 gm/ Sodium (Chloride) 100 mls @ 200 mls/hr IVPB Q12H [facility] Last Infusion: 07/30/19 22:18 Dose: Infused Documented by: Insulin Aspart (Novolog Flexpen) 1 unit SQ QIDWMHS [facility]; Protocol Last Admin: 07/31/19 08:45 Dose: 4 unit Documented by: Insulin Detemir (Levemir Flextouch) 45 unit SQ BID [facility] Levofloxacin (Levaquin Tab) 750 mg PO Q48H [facility] Last Admin: 07/29/19 21:25 Dose: 750 mg Documented by: Metoprolol Succinate (Toprol Xl) 100 mg PO DAILY [facility] Last Admin: 07/30/19 11:03 Dose: 100 mg Documented by: Patient Own Med: (Pentoxifylline 400mg) 1 each PO BID [facility] Last Admin: 07/30/19 22:17 Dose: 1 each Documented by: Patient Own Med: (Ozempic 2mg/1.5ml) 1 each SC WEEKLY [facility] Simvastatin (Zocor) 20 mg PO QHS [facility] Last Admin: 07/30/19 21:45 Dose: 20 mg Documented by: Sodium Chloride () 10 ml IVP BID [facility] Last Admin: 07/30/19 21:42 Dose: 10 ml Documented by: Sodium Chloride () 10 ml IVP BID [facility] Last Admin: 07/30/19 21:43 Dose: 10 ml Documented by: Tamsulosin HCl (Flomax) 0.4 mg PO DAILY [facility] Last Admin: 07/30/19 11:03 Dose: 0.4 mg Documented by: Warfarin Sodium (Coumadin) 5 mg PO [id number] [facility] Last Admin: 07/30/19 16:14 Dose: 5 mg Documented by: Warfarin Sodium (Coumadin) 3 mg PO [id number] [facility] Last Admin: 07/30/19 16:14 Dose: 3 mg Documented by: Objective - Vital Signs Vital Signs: Vital Signs - Last 24 Hrs Temp Pulse Resp BP BP Pulse Ox 07/31/19 07:30 97.9 F 68 16 130/71 99 07/30/19 20:00 97.9 F 69 18 147/73 99 07/30/19 10:21 97.6 F 116/72 - General General Appearance: Alert, Oriented x3, Cooperative, No acute distress Limitations: No limitations - Head Head exam: Atraumatic, Normocephalic - Eye Eye exam: Normal appearance, EOMI - ENT ENT exam: Mucous membranes moist - Neck Neck exam: Normal inspection - Cardiovascular Peripheral Pulses: 1+: Dorsalis Pedis (R) (faint), Dorsalis Pedis (L) (faint), 3+: Radial (R), Radial (L) - Extremities Extremities exam: Joint swelling (right medial foot swelling), Other (right foot Charcot deformity). negative: Pedal edema - Neurological Neurological exam: Alert, CN II-XII intact - Psychiatric Psychiatric exam: Normal affect, Normal mood H&P Results - Labs Result Diagrams: 07/30/19 08:25 07/30/19 08:25 Labs Last 24 Hours: Laboratory Results - last 24 hr 07/30/19 07/30/19 07/31/19 17:20 21:51 07:29 POC Glucose 186 H 205 H 148 H Discharge Potential - Discharge Potential Discharge Potential: 08/02/2019 - Discharge Needs Community Services Used Prior to Admission: None Patient Discharge Plan Description: Return Home Community Services Needed at Discharge: IV Therapy, Physical Therapy Plan - Swing Bed Certification Initial Certification Due: 07/19/19 14 Day Re-Cert Due: 08/02/19 44 Day Re-Cert Due: 09/01/19 74 Day Re-Cert Due: 10/01/19 - Detailed Diagnosis and Plan (1) MRSA bacteremia Current Visit: Yes Status: Acute Base Code: R78.81 - BACTEREMIA Comment: - Spoke with ID, Given cost of daptomycin, after 2 weeks of total IV therapy with dapto, will switch to linezolid which is cheaper. Continue cefepime and levaquin. Total abx therapy for 6 week treatment 07/16/19-08/26/19 - Follow up Dr Lucero as scheduled outpt. - Weekly CBC, CMP, CRP, ESR, CK --> BUN/cr 49/1.9 -> baseline cr is 2.0 -->CRP 6.38 --> 1.6 -->ESR 104 --> 105 - Repeat blood cuture at [facility] [place] negative (2) Diabetic ulcer of right foot Current Visit: Yes Status: Acute Qualifiers: Diabetes mellitus type: type 2 Non-pressure ulcer stage: with necrosis of bone Base Code: E11.621 - TYPE 2 DIABETES MELLITUS WITH FOOT ULCER; L97.519 - NON-PRS CHRONIC ULCER OTH PRT RIGHT FOOT W UNSP SEVERITY Comment: - Foot wound culture + MRSA and pseudomonas - Dressing changes with Aquacel silver as ordered - abx x [address] - Dr. Tsai cleared pt to go back to work (3) HTN (hypertension) Current Visit: Yes Status: Acute Base Code: I10 - ESSENTIAL (PRIMARY) HYPERTENSION Comment: - Metoprolol Succinate 100mg QD (4) Physical deconditioning Current Visit: Yes Status: Acute Base Code: R53.81 - OTHER MALAISE Comment: - PT/OT to work with pt (5) T2DM (type 2 diabetes mellitus) Current Visit: Yes Status: Acute Qualifiers: Diabetes mellitus long chain beamer insulin use: with fdc use Diabetes mellitus complication status: with neurologic complications Diabetes mellitus complication detail: with polyneuropathy Qualified Code(s): E11.42 - Type 2 diabetes mellitus with diabetic polyneuropathy; Z79.4 - longterm (current) use of insulin Base Code: E11.9 - TYPE 2 DIABETES MELLITUS WITHOUT COMPLICATIONS Comment: - Will need tight control - Accu check AC/HS with sliding scale - Levemir 64 units BID (home dosing), decreased to 45 units BID in hospital, will continue new dose and adjust as needed , Ozempic 1mg weekly (6) Renal insufficiency Current Visit: Yes Status: Acute Base Code: N28.9 - DISORDER OF KIDNEY AND URETER, UNSPECIFIED Comment: - Cr 2.02 07/19 at [facility] [place], will be checking weekly --> Cr 1.9 - Renal US at [facility] [place] with no acute findings, PTH normal - Meloxican, bumex and potassium on hold until renal status improves - [facility] [place] manages - All meds renally dosed by pharmacy (7) DVT prophylaxis Current Visit: Yes Status: Acute Base Code: [id number] - Comment: - Hx of PE, 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 - Pharmacy managing. (8) Full code status Current Visit: Yes Status: Acute Base Code: Z78.9 - OTHER SPECIFIED HEALTH STATUS - Disposition Home monday if tolerating linezolid
[2019-07-31 11:05] LABS: INR 1.7
[2019-07-31] MEDS: METOPROLOL SUCC 50 MG TABLET PO SCH (11:38)
[2019-07-31] MEDS: 0.9 % SODIUM CHLORIDE 10ML SYR IVP SCH ×4 (11:39→20:13)
[2019-07-31] MEDS: FERROUS SULFATE 325 MG TAB PO SCH (11:40)
[2019-07-31] MEDS: ASPIRIN 325 MG TAB ENTERIC-COATED PO SCH (11:40)
[2019-07-31] MEDS: TAMSULOSIN HCL 0.4 MG CAP.ER.24H PO SCH (11:40)
[2019-07-31] MEDS: COLCHICINE 0.6 MG TABLET PO SCH (11:40)
[2019-07-31] MEDS: ALLOPURINOL 100 MG TAB PO SCH (11:40)
[2019-07-31] MEDS: CEFEPIME HCL 2 GM in 0.9 % SODIUM CHLORIDE 100ML 100 ML IVPB SCH ×3 (11:41→20:26)
[2019-07-31] MEDS: PENTOXIFYLLINE 400 MG PO SCH ×2 (11:41→21:28)
[2019-07-31] MEDS: HEPARIN SODIUM FLUSH 100 UNITS/ML SYR 5ML IVP SCH ×2 (11:41→20:27)
[2019-07-31] MEDS: HEPARIN SODIUM FLUSH 100 UNITS/ML SYR 5ML IV SCH ×2 (12:42→20:27)
--- NOTE | 2019-07-31 16:07 | Physical Therapy Tx Note ---
Physical Therapy Tx Note - Treatment Note Physical Therapy Tx Note: Detail (Patient was seen briefly on 07/29/2019 and rep orted he has been getting out of his room a couple times a day using scooter. Pt. continues to deny difficulty with mobility or exercise program. Pt. was home this weekend and denied any difficulty with mobility. Pt. to discharge this weekend. This was a no charge PT visit.) Physical Therapy Problem List: Detail (Minimal Decrease in LE strength and limited R ankle AROM) Physical Therapy Goals: Instruct and monitor pt. in a LE strengthening HEP.(Goal Met) Physical Therapy Plan: 1-2 times a week for monitoring of mobility and LE strengthening exercises and R ankle ROM exercises.
[2019-07-31] MEDS: WARFARIN 1 MG TABLET PO SCH (17:04)
[2019-07-31] MEDS: WARFARIN 5 MG TAB PO SCH (17:04)
[2019-07-31] MEDS ORDERED: DAPTOMYCIN 500 MG/VIAL IV SCH (20:00)
[2019-07-31] MEDS: LEVOFLOXACIN 500 MG TABLET PO SCH (21:26)
[2019-07-31] MEDS: SIMVASTATIN 20 MG TABLET PO SCH (21:27)
[2019-08-01] MEDS: CEFEPIME HCL 2 GM in 0.9 % SODIUM CHLORIDE 100ML 100 ML IVPB SCH ×2 (07:37→17:32)
[2019-08-01] MEDS: NOVOLOG FLEXPEN (INSULIN ASPART) 100 UNITS/ML SQ SCH ×4 (08:06→22:10)
[2019-08-01] MEDS: 0.9 % SODIUM CHLORIDE 10ML SYR IVP SCH ×4 (08:22→17:42)
[2019-08-01] MEDS: HEPARIN SODIUM FLUSH 100 UNITS/ML SYR 5ML IV SCH ×2 (08:24→17:41)
[2019-08-01] MEDS: HEPARIN SODIUM FLUSH 100 UNITS/ML SYR 5ML IVP SCH ×3 (08:24→17:42)
[2019-08-01] MEDS: ALLOPURINOL 100 MG TAB PO SCH (09:50)
[2019-08-01] MEDS: METOPROLOL SUCC 50 MG TABLET PO SCH (09:51)
[2019-08-01] MEDS: ASPIRIN 325 MG TAB ENTERIC-COATED PO SCH (09:52)
[2019-08-01] MEDS: TAMSULOSIN HCL 0.4 MG CAP.ER.24H PO SCH (09:52)
[2019-08-01] MEDS: COLCHICINE 0.6 MG TABLET PO SCH (09:52)
[2019-08-01] MEDS: LINEZOLID 600 MG TABLET PO SCH ×2 (09:53→22:10)
[2019-08-01] MEDS: FERROUS SULFATE 325 MG TAB PO SCH (09:53)
[2019-08-01] MEDS: LEVEMIR FLEXTOUCH 100 UNIT/ML INSULIN PEN SQ SCH ×2 (09:53→22:13)
[2019-08-01] MEDS: PENTOXIFYLLINE 400 MG PO SCH ×2 (09:54→22:10)
[2019-08-01] MEDS ORDERED: OZEMPIC 2 MG/1.5 ML SC SCH (10:00)
[2019-08-01] MEDS: WARFARIN 5 MG TAB PO SCH (15:41)
[2019-08-01] MEDS: WARFARIN 1 MG TABLET PO SCH (15:42)
[2019-08-01] MEDS: SIMVASTATIN 20 MG TABLET PO SCH (22:10)
[2019-08-02] MEDS: CEFEPIME HCL 2 GM in 0.9 % SODIUM CHLORIDE 100ML 100 ML IVPB SCH (06:27)
[2019-08-02] MEDS: 0.9 % SODIUM CHLORIDE 10ML SYR IVP SCH ×2 (06:27→07:28)
[2019-08-02] MEDS: HEPARIN SODIUM FLUSH 100 UNITS/ML SYR 5ML IV SCH (07:29)
[2019-08-02] MEDS: NOVOLOG FLEXPEN (INSULIN ASPART) 100 UNITS/ML SQ SCH ×2 (08:00→12:05)
--- NOTE | 2019-08-02 09:15 | Rehab Discharge Summary ---
Patient Information - Patient Information Diagnosis: right foot diabetic ulcer w/ infection, bacteriemia Ordered Treatment: OT Evaluate and Treat Surgery: Yes (surgical debridement of right foot) Date of Surgery: 06/17/19 Past Medical/Surgical Hx: PAST MEDICAL/SURGICAL HISTORY Past Surgical History Right rotator cuff X2. Left middle toe amputated . Right foot surgery with plate adn screws. T&A . Vasectomy. astrid filter right groin, Valve repair and replaced. Appy. PMH - Respiratory Hx Respiratory Disorders Yes Hx Asthma No Hx Bronchitis Yes Hx Chronic Obstructive No Pulmonary Disease (COPD) Hx Dyspnea No Hx Pneumonia Yes Hx Pulmonary Embolism Yes Hx Sleep Apnea Yes Hx Tuberculosis No Hx of CPAP Yes PMH - Cardiovascular Hx Cardiovascular Disorders Yes Hx Abnormal EKG No Hx Cardiac Catheterization No Hx Chest Pain No Hx Congestive Heart Failure No Hx Deep Vein Thrombosis Yes: with blood clots to lungs Hx Edema Yes Hx Heart Attack No Hx Hypertension No Hx Hypotension No Hx Irregular Heartbeat No Hx Palpitations No Hx Pacemaker/Defibrillator No Hx Vascular Disease No Hx Transient Ischemic Attacks No (TIA) Comment: heart valve replacement PMH - Neuro Hx Neurological Disorders Yes Hx Brain Tumor No Hx Cerebrovascular Accident No Hx Dementia No Hx Dizziness No Hx Headaches No Hx Neuropathy Yes Hx Parkinson's Disease No Hx Seizures No Hx Speech Problem No Hx Syncope No Hx Transient Ischemic Attacks No (TIA) PMH - GI Hx Gastrointestinal Disorders No Hx Abdominal Pain No Hx Celiac Disease No Hx Crohn's Disease No Hx Diverticulitis No Hx Gastrointestinal Bleed No Hx Gastroesophageal Reflux No Hx Hepatitis/Jaundice No Hx Hiatal Hernia No Hx Irritable Bowel No Hx Liver Disease No Hx Nausea/Vomiting No Hx Obstructive Bowel No Hx Pancreatitis No Hx Rectal Bleeding No Hx Ulcer No Hx Weight Loss/Weight Gain No PMH - Hx Genitourinary Disorders No Hx Bladder Problem No Hx Dialysis No Hx Kidney Stones No Hx Prostate Problems No Hx Renal Disease No Hx Urinary Tract Infection No PMH - Endocrine Hx Endocrine Disorders Yes Hx Diabetes Yes Hx Thyroid Disease No PMH - Musculoskeletal Hx Musculoskeletal Disorders Yes Hx Arthritis Yes Hx Back Injury No Hx Fibromyalgia No Hx Gout Yes Hx Musculoskeletal Disease No Hx Osteoporosis No PMH - Psych Hx Psychiatric Problems No Hx Anxiety No Hx Behavior Problems No Hx Depression No Hx Emotional Abuse No Hx Sexual Abuse No Hx Suicide Attempt No PMH - Hematology/Oncology Hx Hematology/Oncology Yes Disorders Hx Clotting Problems Yes: takes coumadin Comment: Astrid filter (groin) Premorbid Status: Detail (The patient has used a kneeling scooter since May independently at home.) Social History: Detail (The patient lives with and step son in a one story house with a basement and a ramp at the entrance. The bathroom is equipped with a tub/shower combination and an elevated toilet. The bathroom does not have grab bars. The patient reports his kneeling scooter is not acessible to his bedroom so he has been sleeping in a recliner. The patient has a walker and canes an the kneeling scooter.) Precautions: [place], [place], Other (NWB on the R LE, contact isolation due to MRSA and pseudomonas) Objective Data - Pain Pain Present: Yes (right foot pain) - Mental Status Patient Orientation: Oriented x3 - Visual Perception Appears within normal limits for therapeutic activities - ROM Within normal limits (Manuel UE AROM WNL) - Strength/Tone Within normal limits (Manuel UE strength 5/5) - Coordination Appears within normal limits for therapeutic activities - Transfers Independent - Balance Balance Sitting: Good Balance Standing: Good - Sensation Intact - Gait Detail (Ind with scooter) - ADL's/IADL's Detail (Pt is Ind with showering and total body dressing) Therapy Assessment - Therapy Assessment Detail (Pt is Ind with all self cares and functional mobility) Problem List - Problem List Physical Therapy Problem List: Detail (Minimal Decrease in LE strength and limited R ankle AROM) Occupational Therapy Problem List: Detail (1. Need to assess showering.) Goals - Goals Physical Therapy Goals: Instruct and monitor pt. in a LE strengthening HEP.(Goal Met) Occupational Therapy Goals: Goal met: 1. Pt will be Ind with showering in sitting. Prognosis - Prognosis Good Plan - Plan Physical Therapy Plan: 1-2 times a week for monitoring of mobility and LE strengthening exercises and R ankle ROM exercises. Occupational Therapy Plan: Pt is discharging home.
[2019-08-02] MEDS: LINEZOLID 600 MG TABLET PO SCH (09:26)
[2019-08-02] MEDS: COLCHICINE 0.6 MG TABLET PO SCH (09:26)
[2019-08-02] MEDS: TAMSULOSIN HCL 0.4 MG CAP.ER.24H PO SCH (09:27)
[2019-08-02] MEDS: ALLOPURINOL 100 MG TAB PO SCH (09:27)
[2019-08-02] MEDS: METOPROLOL SUCC 50 MG TABLET PO SCH (09:27)
[2019-08-02] MEDS: FERROUS SULFATE 325 MG TAB PO SCH (09:27)
[2019-08-02] MEDS: ASPIRIN 325 MG TAB ENTERIC-COATED PO SCH (09:27)
[2019-08-02] MEDS: PENTOXIFYLLINE 400 MG PO SCH (09:28)
[2019-08-02] MEDS: LEVEMIR FLEXTOUCH 100 UNIT/ML INSULIN PEN SQ SCH (09:28)
[2019-08-02 10:38] LABS: INR 1.9; PROTHROMBIN TIME (PATIENT) 19.1 SECONDS (9.5-12.1)
--- NOTE | 2019-08-02 10:57 | Rehab Discharge Summary ---
Patient Information - Patient Information Diagnosis: right foot diabetic ulcer w/ infection, bacteriemia Ordered Treatment: PT Evaluate and Treat Surgery: Yes (surgical debridement of right foot) Date of Surgery: 06/17/19 Past Medical/Surgical Hx: PAST MEDICAL/SURGICAL HISTORY Past Surgical History Right rotator cuff X2. Left middle toe amputated . Right foot surgery with plate adn screws. T&A . Vasectomy. astrid filter right groin, Valve repair and replaced. Appy. PMH - Respiratory Hx Respiratory Disorders Yes Hx Asthma No Hx Bronchitis Yes Hx Chronic Obstructive No Pulmonary Disease (COPD) Hx Dyspnea No Hx Pneumonia Yes Hx Pulmonary Embolism Yes Hx Sleep Apnea Yes Hx Tuberculosis No Hx of CPAP Yes PMH - Cardiovascular Hx Cardiovascular Disorders Yes Hx Abnormal EKG No Hx Cardiac Catheterization No Hx Chest Pain No Hx Congestive Heart Failure No Hx Deep Vein Thrombosis Yes: with blood clots to lungs Hx Edema Yes Hx Heart Attack No Hx Hypertension No Hx Hypotension No Hx Irregular Heartbeat No Hx Palpitations No Hx Pacemaker/Defibrillator No Hx Vascular Disease No Hx Transient Ischemic Attacks No (TIA) Comment: heart valve replacement PMH - Neuro Hx Neurological Disorders Yes Hx Brain Tumor No Hx Cerebrovascular Accident No Hx Dementia No Hx Dizziness No Hx Headaches No Hx Neuropathy Yes Hx Parkinson's Disease No Hx Seizures No Hx Speech Problem No Hx Syncope No Hx Transient Ischemic Attacks No (TIA) PMH - GI Hx Gastrointestinal Disorders No Hx Abdominal Pain No Hx Celiac Disease No Hx Crohn's Disease No Hx Diverticulitis No Hx Gastrointestinal Bleed No Hx Gastroesophageal Reflux No Hx Hepatitis/Jaundice No Hx Hiatal Hernia No Hx Irritable Bowel No Hx Liver Disease No Hx Nausea/Vomiting No Hx Obstructive Bowel No Hx Pancreatitis No Hx Rectal Bleeding No Hx Ulcer No Hx Weight Loss/Weight Gain No PMH - Hx Genitourinary Disorders No Hx Bladder Problem No Hx Dialysis No Hx Kidney Stones No Hx Prostate Problems No Hx Renal Disease No Hx Urinary Tract Infection No PMH - Endocrine Hx Endocrine Disorders Yes Hx Diabetes Yes Hx Thyroid Disease No PMH - Musculoskeletal Hx Musculoskeletal Disorders Yes Hx Arthritis Yes Hx Back Injury No Hx Fibromyalgia No Hx Gout Yes Hx Musculoskeletal Disease No Hx Osteoporosis No PMH - Psych Hx Psychiatric Problems No Hx Anxiety No Hx Behavior Problems No Hx Depression No Hx Emotional Abuse No Hx Sexual Abuse No Hx Suicide Attempt No PMH - Hematology/Oncology Hx Hematology/Oncology Yes Disorders Hx Clotting Problems Yes: takes coumadin Comment: Astrid filter (groin) Premorbid Status: Detail (The patient has used a kneeling scooter since May independently at home.) Social History: Detail (The patient lives with and step son in a one story house with a basement and a ramp at the entrance. The bathroom is equipped with a tub/shower combination and an elevated toilet. The bathroom does not have grab bars. The patient reports his kneeling scooter is not acessible to his bedroom so he has been sleeping in a recliner. The patient has a walker and canes an the kneeling scooter.) Precautions: [place], Fall, Other (NWB on the R LE, contact isolation due to MRSA and pseudomonas) Subjective Information - Subjective Information Per Patient (The patient had occasional complaints of R heel region pain. The patient did not rate pain using 0-10 pain scale.) Objective Data - Mental Status Patient Orientation: Oriented x3 - Visual Perception Appears within normal limits for therapeutic activities - ROM Not within normal limits (The patient's LE AROM was WNL except for R ankle and toe limitations due to past surgical interventions ( No R ankle inversion, eversion and limited dorsi and plantar flexion.)) - Strength/Tone Within normal limits (The patient's L LE strength was generally 4+ to 5/5.), Not within normal limits (R hip musculature was to to 4+/5, knee flexors 4/5 and knee extensors 5/5, ankle dorsi and plantar flexors are 2/5.) - Transfers Independent (The patient was independent with all transfers including sit to and from stand transfer, toilet transfers and transfers to and from his kneeler scooter. The patient went home for a visit during his swing bed stay and denied any difficulty with transfers.) - Balance Balance Sitting: Good Balance Standing: Good - Gait Detail (The patient was nonambulatory due to NWB status on the R LE. The patient was independent with kneeler scooter and was using the device in the hallway community distances.) Therapy Assessment - Therapy Assessment Detail (The patient was independent with all mobility. The patient was independent with a HEP of LE strengthening exercises and R ankle ROM exercises.) Patient Education - Patient Education Teaching Topic: Exercise/Activity (The patient was instructed in a HEP of LE strengthening exercises with use T-band and R ankle AROM exercises.) Response: Return Demonstration Teaching Method: Discussion, Demonstration, Handout Teaching Recipient: Patient Barriers To Learning: None Problem List - Problem List Physical Therapy Problem List: Detail (Minimal Decrease in LE strength and limited R ankle AROM) Occupational Therapy Problem List: Detail (1. Need to assess showering.) Goals - Goals Physical Therapy Goals: Instruct and monitor pt. in a LE strengthening HEP.(Goal Met) Occupational Therapy Goals: Goal met: 1. Pt will be Ind with showering in sitting. Plan - Plan Physical Therapy Plan: The patient is discharging to home today. No ongoing PT intervention is recommended. Patient is to continue with HEP. Occupational Therapy Plan: Pt is discharging home.
--- NOTE | 2019-08-02 11:17 | Discharge Summary ---
Providers Discharge Summary Date: 08/02/19 Date of admission: 07/19/19 16:55 Expected Date of Discharge: 08/02/19 Attending physician: TAYLOR TERRY Primary care physician: Catarina Heard N.P. Physical Exam - Vital Signs Vital Signs: Vital Signs - Last 24 Hrs Temp Pulse Resp BP Pulse Ox 08/02/19 08:00 97.8 F 73 18 122/67 100 08/01/19 20:00 97.9 F 70 16 130/70 100 - General General Appearance: Alert, Oriented x3, Cooperative, No acute distress Limitations: Physical limitation (foot lesion) - Head Head exam: Atraumatic, Normocephalic - Eye Eye exam: Normal appearance, EOMI - ENT ENT exam: Mucous membranes moist Ear exam: Normal external inspection Nasal Exam: Normal inspection Mouth exam: Normal external inspection Teeth exam: Normal inspection - Neck Neck exam: Normal inspection - Respiratory Respiratory exam: Normal lung sounds bilaterally - Cardiovascular Cardiovascular Exam: Regular rate, Normal rhythm, Normal heart sounds - GI/Abdominal GI/Abdominal exam: Soft, Diminished bowel sounds (but denies constipation). negative: Tenderness - Rectal Rectal exam: Deferred - exam: Deferred - Extremities Extremities exam: Joint swelling (right medial foot swelling), Other (right foot Charcot deformity). negative: Pedal edema - Neurological Neurological exam: Alert, CN II-XII intact - Psychiatric Psychiatric exam: Normal affect, Normal mood - Skin Skin exam: Other (medial planar right foot with open wound, approx [id number] open area, Aquacel packing in place,no erythema, no purulence, no odor) Hospitalization - Hospitalization Admission Diagnosis: Physical deconditioning. Right foot diabetic foot ulcer with infection. Bacteriemia - Problem List/Discharge Diagnosis (1) MRSA bacteremia Current Visit: Yes Status: Acute Base Code: R78.81 - BACTEREMIA Comment: - Spoke with ID, Given cost of daptomycin, after 2 weeks of total IV therapy with dapto, will switch to linezolid which is cheaper. Continue cefepime and levaquin. Total abx therapy for 6 week treatment 07/16/19-08/26/19 - Follow up Dr Lucero as scheduled outpt. - Weekly CBC, CMP, CRP, ESR, CK --> BUN/cr 49/1.9 -> baseline cr is 2.0 -->CRP 6.38 --> 1.6 -->ESR 104 --> 105 - Repeat blood cuture at [facility] negative (2) Diabetic ulcer of right foot Current Visit: Yes Status: Acute Discharge Diagnosis: Diabetes mellitus type: type 2 Non-pressure ulcer stage: with necrosis of bone Base Code: E11.621 - TYPE 2 DIABETES MELLITUS WITH FOOT ULCER; L97.519 - NON-PRS CHRONIC ULCER OTH PRT RIGHT FOOT W UNSP SEVERITY Comment: - Foot wound culture + MRSA and pseudomonas - Dressing changes with Aquacel silver as ordered - abx x 6 weeks - Dr. Tsai cleared pt to go back to work (3) HTN (hypertension) Current Visit: Yes Status: Acute Base Code: I10 - ESSENTIAL (PRIMARY) HYPERTENSION Comment: - Metoprolol Succinate 100mg QD (4) Physical deconditioning Current Visit: Yes Status: Acute Base Code: R53.81 - OTHER MALAISE Comment: - PT/OT to work with pt (5) T2DM (type 2 diabetes mellitus) Current Visit: Yes Status: Acute Discharge Diagnosis: Diabetes mellitus assisted insulin use: with terminal make up operator use Diabetes mellitus complication status: with neurologic complications Diabetes mellitus complication detail: with polyneuropathy Qualified Code(s): E11.42 - Type 2 diabetes mellitus with diabetic polyneuropathy; Z79.4 - watermaster (current) use of insulin Base Code: E11.9 - TYPE 2 DIABETES MELLITUS WITHOUT COMPLICATIONS Comment: - Will need tight control - Accu check AC/HS with sliding scale - Levemir 64 units BID (home dosing), decreased to 45 units BID in hospital, will continue new dose and adjust as needed , Ozempic 1mg weekly (6) Renal insufficiency Current Visit: Yes Status: Acute Base Code: N28.9 - DISORDER OF KIDNEY AND URETER, UNSPECIFIED Comment: - Cr 2.02 07/19 at [facility], will be checking weekly --> Cr 1.9 - Renal US at [facility] with no acute findings, PTH normal - Meloxican, bumex and potassium on hold until renal status improves - [facility] Nephrology group manages - All meds renally dosed by pharmacy (7) DVT prophylaxis Current Visit: Yes Status: Acute Base Code: [id number] - Comment: - Hx of PE, 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 - Pharmacy managing. (8) Full code status Current Visit: Yes Status: Acute Base Code: Z78.9 - OTHER SPECIFIED HEALTH STATUS - Disposition Home monday if tolerating linezolid - Hospitalization Course Hospital Course: 64 y/o male with history of uncontrolled type-2 diabetes, HTN, hyperlipidemia, CKD, Charcot's foot, diabetic neuropathy. Admitted to [facility] s/p hospitalization 07/08/2019-07/19/2019 at [facility] for sepsis, infected right foot diabetic foot ulcer, acute kidney injury. Prior to acute hospitalization he had surgical debridement of right foot ulcer and Charcot's foot deformity by Dr Tsai on 06/17/19. Hospital course included findings of deep plantar midfoot ulcer with continued sinus tract and suspected early evidence of osteomyelitis as found on foot MRI, acute kidney injury with BUN/Cr 44/2.9, potassium 4.7, normal WBC, Hgb 10.4, and febrile with tmax 101. It was found patient had MRSA and pseudomonas in foot wound and MRSA in blood cultures. Was evaluated by ID and placed on Daptomycin, Cefepime and Levaquin. Podiatry evaluated with no further surgical recommendations. He follows with [facility], baseline renal function not available in [facility] records. He was admitted to complete course of abx and work with PT/OT. During his stay he received appropriate abx for his osteomyelitis. He did have financial concerns regarding daptomycin. I called Dr. Lucero and he stated that after 2 weeks of IV daptomycin it could be switched to linezolid PO. Pt received linezolid for 24 hours prior to D/C without issue. He is to continue linezolid, cefepime, and levaquin as prescribed (renally dosed via pharmacy). He is also to change dressing daily for his wound. Upon D/C his Cr reduced to 1.9 and K+ was wnl. He was afebrile and WBC was wnl. Hb was 9.4 but this is a chronic issue for him and has remained stable during hospitalization. Pt was cleared by Dr. Tsai prior to D/C to return to work. Abx script given until he see's Dr. Lucero for follow up. Total Abx course to be 6 weeks. Last day of abx per [facility] D/C summary is 08/23/2019. PCP: Catarina Khol [employer]IA/INSTRUCTIONAL DESIGNER Nephrology: [facility] ID: Dr. Lucero Abnormal Labs: Abnormal Lab Results 07/19/19 07/19/19 07/20/19 Range/Units 21:30 22:25 06:05 RBC (4.40-5.70) M/uL Hgb (14.0-18.0) gm/dl Hct (42.0-52.0) % MCH (27-33) pg MCHC (32-36) g/dl RDW (11.5-14.5) % Lymphocytes % (16-45) % Lymphocytes (16-45) % ESR (0-20) mm/hr PT 13.3 H 13.0 H (9.5-12.1) SECONDS Sodium (136-145) mmol/L Carbon Dioxide (22-29) mmol/L BUN (8-23) mg/dL Creatinine (0.7-1.2) mg/dL POC Glucose 139 H (70-110) mg/dL Random Glucose (74-109) mg/dL ALT (<41) U/L C-Reactive Protein (<0.5) mg/dL Albumin (4.0-5.0) g/dL Albumin/Globulin Ratio (1.1-1.8) 07/20/19 07/20/19 07/20/19 Range/Units 06:05 06:05 08:01 RBC 3.86 L (4.40-5.70) M/uL Hgb 10.0 L (14.0-18.0) gm/dl Hct 32.1 L (42.0-52.0) % MCH 25.9 L (27-33) pg MCHC 31.2 L (32-36) g/dl RDW 15.9 H (11.5-14.5) % Lymphocytes % (16-45) % Lymphocytes 10.0 L (16-45) % ESR 104 H (0-20) mm/hr PT (9.5-12.1) SECONDS Sodium (136-145) mmol/L Carbon Dioxide 20.0 L (22-29) mmol/L BUN 49 H (8-23) mg/dL Creatinine 2.0 H (0.7-1.2) mg/dL POC Glucose 167 H (70-110) mg/dL Random Glucose (74-109) mg/dL ALT (<41) U/L C-Reactive Protein 6.38 H (<0.5) mg/dL Albumin 3.3 L (4.0-5.0) g/dL Albumin/Globulin Ratio 0.8 L (1.1-1.8) 07/20/19 07/20/19 07/20/19 Range/Units 12:14 16:55 22:15 RBC (4.40-5.70) M/uL Hgb (14.0-18.0) gm/dl Hct (42.0-52.0) % MCH (27-33) pg MCHC (32-36) g/dl RDW (11.5-14.5) % Lymphocytes % (16-45) % Lymphocytes (16-45) % ESR (0-20) mm/hr PT (9.5-12.1) SECONDS Sodium (136-145) mmol/L Carbon Dioxide (22-29) mmol/L BUN (8-23) mg/dL Creatinine (0.7-1.2) mg/dL POC Glucose 144 H 187 H 163 H (70-110) mg/dL Random Glucose (74-109) mg/dL ALT (<41) U/L C-Reactive Protein (<0.5) mg/dL Albumin (4.0-5.0) g/dL Albumin/Globulin Ratio (1.1-1.8) 07/21/19 07/21/19 07/21/19 Range/Units 06:05 11:24 17:29 RBC (4.40-5.70) M/uL Hgb (14.0-18.0) gm/dl Hct (42.0-52.0) % MCH (27-33) pg MCHC (32-36) g/dl RDW (11.5-14.5) % Lymphocytes % (16-45) % Lymphocytes (16-45) % ESR (0-20) mm/hr PT 13.3 H (9.5-12.1) SECONDS Sodium (136-145) mmol/L Carbon Dioxide (22-29) mmol/L BUN (8-23) mg/dL Creatinine (0.7-1.2) mg/dL POC Glucose 151 H 140 H (70-110) mg/dL Random Glucose (74-109) mg/dL ALT (<41) U/L C-Reactive Protein (<0.5) mg/dL Albumin (4.0-5.0) g/dL Albumin/Globulin Ratio (1.1-1.8) 07/21/19 07/22/19 07/22/19 Range/Units 22:13 06:30 11:33 RBC (4.40-5.70) M/uL Hgb (14.0-18.0) gm/dl Hct (42.0-52.0) % MCH (27-33) pg MCHC (32-36) g/dl RDW (11.5-14.5) % Lymphocytes % (16-45) % Lymphocytes (16-45) % ESR (0-20) mm/hr PT 13.0 H (9.5-12.1) SECONDS Sodium (136-145) mmol/L Carbon Dioxide (22-29) mmol/L BUN (8-23) mg/dL Creatinine (0.7-1.2) mg/dL POC Glucose 255 H 135 H (70-110) mg/dL Random Glucose (74-109) mg/dL ALT (<41) U/L C-Reactive Protein (<0.5) mg/dL Albumin (4.0-5.0) g/dL Albumin/Globulin Ratio (1.1-1.8) 07/22/19 07/22/19 07/23/19 Range/Units 17:20 23:08 06:20 RBC (4.40-5.70) M/uL Hgb (14.0-18.0) gm/dl Hct (42.0-52.0) % MCH (27-33) pg MCHC (32-36) g/dl RDW (11.5-14.5) % Lymphocytes % (16-45) % Lymphocytes (16-45) % ESR (0-20) mm/hr PT 13.2 H (9.5-12.1) SECONDS Sodium (136-145) mmol/L Carbon Dioxide (22-29) mmol/L BUN (8-23) mg/dL Creatinine (0.7-1.2) mg/dL POC Glucose 146 H 170 H (70-110) mg/dL Random Glucose (74-109) mg/dL ALT (<41) U/L C-Reactive Protein (<0.5) mg/dL Albumin (4.0-5.0) g/dL Albumin/Globulin Ratio (1.1-1.8) 07/23/19 07/23/19 07/23/19 Range/Units 08:08 12:46 17:17 RBC (4.40-5.70) M/uL Hgb (14.0-18.0) gm/dl Hct (42.0-52.0) % MCH (27-33) pg MCHC (32-36) g/dl RDW (11.5-14.5) % Lymphocytes % (16-45) % Lymphocytes (16-45) % ESR (0-20) mm/hr PT (9.5-12.1) SECONDS Sodium (136-145) mmol/L Carbon Dioxide (22-29) mmol/L BUN (8-23) mg/dL Creatinine (0.7-1.2) mg/dL POC Glucose 120 H 131 H 155 H (70-110) mg/dL Random Glucose (74-109) mg/dL ALT (<41) U/L C-Reactive Protein (<0.5) mg/dL Albumin (4.0-5.0) g/dL Albumin/Globulin Ratio (1.1-1.8) 07/23/19 07/24/19 07/24/19 Range/Units 22:40 06:25 08:56 RBC (4.40-5.70) M/uL Hgb (14.0-18.0) gm/dl Hct (42.0-52.0) % MCH (27-33) pg MCHC (32-36) g/dl RDW (11.5-14.5) % Lymphocytes % (16-45) % Lymphocytes (16-45) % ESR (0-20) mm/hr PT 14.0 H (9.5-12.1) SECONDS Sodium (136-145) mmol/L Carbon Dioxide (22-29) mmol/L BUN (8-23) mg/dL Creatinine (0.7-1.2) mg/dL POC Glucose 175 H 138 H (70-110) mg/dL Random Glucose (74-109) mg/dL ALT (<41) U/L C-Reactive Protein (<0.5) mg/dL Albumin (4.0-5.0) g/dL Albumin/Globulin Ratio (1.1-1.8) 07/24/19 07/24/19 07/25/19 Range/Units 12:22 17:26 08:55 RBC (4.40-5.70) M/uL Hgb (14.0-18.0) gm/dl Hct (42.0-52.0) % MCH (27-33) pg MCHC (32-36) g/dl RDW (11.5-14.5) % Lymphocytes % (16-45) % Lymphocytes (16-45) % ESR (0-20) mm/hr PT 14.9 H (9.5-12.1) SECONDS Sodium (136-145) mmol/L Carbon Dioxide (22-29) mmol/L BUN (8-23) mg/dL Creatinine (0.7-1.2) mg/dL POC Glucose 148 H 203 H (70-110) mg/dL Random Glucose (74-109) mg/dL ALT (<41) U/L C-Reactive Protein (<0.5) mg/dL Albumin (4.0-5.0) g/dL Albumin/Globulin Ratio (1.1-1.8) 07/25/19 07/25/19 07/26/19 Range/Units 11:54 17:16 06:20 RBC (4.40-5.70) M/uL Hgb (14.0-18.0) gm/dl Hct (42.0-52.0) % MCH (27-33) pg MCHC (32-36) g/dl RDW (11.5-14.5) % Lymphocytes % (16-45) % Lymphocytes (16-45) % ESR (0-20) mm/hr PT 14.0 H (9.5-12.1) SECONDS Sodium (136-145) mmol/L Carbon Dioxide (22-29) mmol/L BUN (8-23) mg/dL Creatinine (0.7-1.2) mg/dL POC Glucose 172 H 158 H (70-110) mg/dL Random Glucose (74-109) mg/dL ALT (<41) U/L C-Reactive Protein (<0.5) mg/dL Albumin (4.0-5.0) g/dL Albumin/Globulin Ratio (1.1-1.8) 07/26/19 07/26/19 07/27/19 Range/Units 06:20 07:33 07:30 RBC 3.80 L (4.40-5.70) M/uL Hgb 9.6 L (14.0-18.0) gm/dl Hct 32.1 L (42.0-52.0) % MCH 25.2 L (27-33) pg MCHC 29.9 L (32-36) g/dl RDW 15.9 H (11.5-14.5) % Lymphocytes % 14.8 L (16-45) % Lymphocytes (16-45) % ESR (0-20) mm/hr PT (9.5-12.1) SECONDS Sodium (136-145) mmol/L Carbon Dioxide (22-29) mmol/L BUN (8-23) mg/dL Creatinine (0.7-1.2) mg/dL POC Glucose 145 H 136 H (70-110) mg/dL Random Glucose (74-109) mg/dL ALT (<41) U/L C-Reactive Protein (<0.5) mg/dL Albumin (4.0-5.0) g/dL Albumin/Globulin Ratio (1.1-1.8) 07/27/19 07/27/19 07/27/19 Range/Units 07:43 07:43 07:43 RBC 3.67 L (4.40-5.70) M/uL Hgb 9.2 L (14.0-18.0) gm/dl Hct 30.6 L (42.0-52.0) % MCH 25.0 L (27-33) pg MCHC 30.1 L (32-36) g/dl RDW 15.8 H (11.5-14.5) % Lymphocytes % 15.1 L (16-45) % Lymphocytes (16-45) % ESR 105 H (0-20) mm/hr PT 14.2 H (9.5-12.1) SECONDS Sodium (136-145) mmol/L Carbon Dioxide (22-29) mmol/L BUN 48 H (8-23) mg/dL Creatinine 2.1 H (0.7-1.2) mg/dL POC Glucose (70-110) mg/dL Random Glucose 149 H (74-109) mg/dL ALT 43 H (<41) U/L C-Reactive Protein 1.60 H (<0.5) mg/dL Albumin 3.4 L (4.0-5.0) g/dL Albumin/Globulin Ratio 0.8 L (1.1-1.8) 07/27/19 07/27/19 07/28/19 Range/Units 11:30 21:03 06:20 RBC (4.40-5.70) M/uL Hgb (14.0-18.0) gm/dl Hct (42.0-52.0) % MCH (27-33) pg MCHC (32-36) g/dl RDW (11.5-14.5) % Lymphocytes % (16-45) % Lymphocytes (16-45) % ESR (0-20) mm/hr PT 14.8 H (9.5-12.1) SECONDS Sodium (136-145) mmol/L Carbon Dioxide (22-29) mmol/L BUN (8-23) mg/dL Creatinine (0.7-1.2) mg/dL POC Glucose 158 H 327 H (70-110) mg/dL Random Glucose (74-109) mg/dL ALT (<41) U/L C-Reactive Protein (<0.5) mg/dL Albumin (4.0-5.0) g/dL Albumin/Globulin Ratio (1.1-1.8) 07/28/19 07/28/19 07/29/19 Range/Units 07:06 21:38 06:28 RBC (4.40-5.70) M/uL Hgb (14.0-18.0) gm/dl Hct (42.0-52.0) % MCH (27-33) pg MCHC (32-36) g/dl RDW (11.5-14.5) % Lymphocytes % (16-45) % Lymphocytes (16-45) % ESR (0-20) mm/hr PT 16.5 H (9.5-12.1) SECONDS Sodium (136-145) mmol/L Carbon Dioxide (22-29) mmol/L BUN (8-23) mg/dL Creatinine (0.7-1.2) mg/dL POC Glucose 163 H 202 H (70-110) mg/dL Random Glucose (74-109) mg/dL ALT (<41) U/L C-Reactive Protein (<0.5) mg/dL Albumin (4.0-5.0) g/dL Albumin/Globulin Ratio (1.1-1.8) 07/29/19 07/29/19 07/29/19 Range/Units 07:27 12:30 16:49 RBC (4.40-5.70) M/uL Hgb (14.0-18.0) gm/dl Hct (42.0-52.0) % MCH (27-33) pg MCHC (32-36) g/dl RDW (11.5-14.5) % Lymphocytes % (16-45) % Lymphocytes (16-45) % ESR (0-20) mm/hr PT (9.5-12.1) SECONDS Sodium (136-145) mmol/L Carbon Dioxide (22-29) mmol/L BUN (8-23) mg/dL Creatinine (0.7-1.2) mg/dL POC Glucose 140 H 224 H 197 H (70-110) mg/dL Random Glucose (74-109) mg/dL ALT (<41) U/L C-Reactive Protein (<0.5) mg/dL Albumin (4.0-5.0) g/dL Albumin/Globulin Ratio (1.1-1.8) 07/29/19 07/30/19 07/30/19 Range/Units 21:45 07:20 08:25 RBC 3.80 L (4.40-5.70) M/uL Hgb 9.6 L (14.0-18.0) gm/dl Hct 31.9 L (42.0-52.0) % MCH 25.2 L (27-33) pg MCHC 30.1 L (32-36) g/dl RDW 16.4 H (11.5-14.5) % Lymphocytes % 12.8 L (16-45) % Lymphocytes (16-45) % ESR (0-20) mm/hr PT (9.5-12.1) SECONDS Sodium (136-145) mmol/L Carbon Dioxide (22-29) mmol/L BUN (8-23) mg/dL Creatinine (0.7-1.2) mg/dL POC Glucose 311 H 136 H (70-110) mg/dL Random Glucose (74-109) mg/dL ALT (<41) U/L C-Reactive Protein (<0.5) mg/dL Albumin (4.0-5.0) g/dL Albumin/Globulin Ratio (1.1-1.8) 07/30/19 07/30/19 07/30/19 Range/Units 08:25 08:25 17:20 RBC (4.40-5.70) M/uL Hgb (14.0-18.0) gm/dl Hct (42.0-52.0) % MCH (27-33) pg MCHC (32-36) g/dl RDW (11.5-14.5) % Lymphocytes % (16-45) % Lymphocytes (16-45) % ESR (0-20) mm/hr PT 17.3 H (9.5-12.1) SECONDS Sodium 135 L (136-145) mmol/L Carbon Dioxide (22-29) mmol/L BUN 49 H (8-23) mg/dL Creatinine 1.9 H (0.7-1.2) mg/dL POC Glucose 186 H (70-110) mg/dL Random Glucose 164 H (74-109) mg/dL ALT (<41) U/L C-Reactive Protein (<0.5) mg/dL Albumin (4.0-5.0) g/dL Albumin/Globulin Ratio (1.1-1.8) 07/30/19 07/31/19 07/31/19 Range/Units 21:51 07:29 10:00 RBC (4.40-5.70) M/uL Hgb (14.0-18.0) gm/dl Hct (42.0-52.0) % MCH (27-33) pg MCHC (32-36) g/dl RDW (11.5-14.5) % Lymphocytes % (16-45) % Lymphocytes (16-45) % ESR (0-20) mm/hr PT 17.0 H (9.5-12.1) SECONDS Sodium (136-145) mmol/L Carbon Dioxide (22-29) mmol/L BUN (8-23) mg/dL Creatinine (0.7-1.2) mg/dL POC Glucose 205 H 148 H (70-110) mg/dL Random Glucose (74-109) mg/dL ALT (<41) U/L C-Reactive Protein (<0.5) mg/dL Albumin (4.0-5.0) g/dL Albumin/Globulin Ratio (1.1-1.8) 07/31/19 07/31/19 08/01/19 Range/Units 12:32 21:34 08:15 RBC (4.40-5.70) M/uL Hgb (14.0-18.0) gm/dl Hct (42.0-52.0) % MCH (27-33) pg MCHC (32-36) g/dl RDW (11.5-14.5) % Lymphocytes % (16-45) % Lymphocytes (16-45) % ESR (0-20) mm/hr PT (9.5-12.1) SECONDS Sodium (136-145) mmol/L Carbon Dioxide (22-29) mmol/L BUN (8-23) mg/dL Creatinine (0.7-1.2) mg/dL POC Glucose 223 H 253 H 147 H (70-110) mg/dL Random Glucose (74-109) mg/dL ALT (<41) U/L C-Reactive Protein (<0.5) mg/dL Albumin (4.0-5.0) g/dL Albumin/Globulin Ratio (1.1-1.8) 08/01/19 08/01/19 08/02/19 Range/Units 17:23 22:00 08:06 RBC (4.40-5.70) M/uL Hgb (14.0-18.0) gm/dl Hct (42.0-52.0) % MCH (27-33) pg MCHC (32-36) g/dl RDW (11.5-14.5) % Lymphocytes % (16-45) % Lymphocytes (16-45) % ESR (0-20) mm/hr PT (9.5-12.1) SECONDS Sodium (136-145) mmol/L Carbon Dioxide (22-29) mmol/L BUN (8-23) mg/dL Creatinine (0.7-1.2) mg/dL POC Glucose 186 H 264 H 149 H (70-110) mg/dL Random Glucose (74-109) mg/dL ALT (<41) U/L C-Reactive Protein (<0.5) mg/dL Albumin (4.0-5.0) g/dL Albumin/Globulin Ratio (1.1-1.8) 08/02/19 Range/Units 10:15 RBC (4.40-5.70) M/uL Hgb (14.0-18.0) gm/dl Hct (42.0-52.0) % MCH (27-33) pg MCHC (32-36) g/dl RDW (11.5-14.5) % Lymphocytes % (16-45) % Lymphocytes (16-45) % ESR (0-20) mm/hr PT 19.1 H (9.5-12.1) SECONDS Sodium (136-145) mmol/L Carbon Dioxide (22-29) mmol/L BUN (8-23) mg/dL Creatinine (0.7-1.2) mg/dL POC Glucose (70-110) mg/dL Random Glucose (74-109) mg/dL ALT (<41) U/L C-Reactive Protein (<0.5) mg/dL Albumin (4.0-5.0) g/dL Albumin/Globulin Ratio (1.1-1.8) Condition at Discharge: (1) Good Discharge Medications - Discharge Medications Home Medications: Ambulatory Orders Insulin Detemir [Levemir Flextouch] 2 unit SQ ASDIR 09/12/18 [Last Taken 1 Day Ago ~07/07/19] Semaglutide [Ozempic] 2.5 unit SQ ASDIR 09/12/18 [Last Taken 1 Day Ago ~07/07/19] Levofloxacin [Levaquin] 750 mg PO Q48H tablet 08/02/19 [Last Taken Unknown] Linezolid 600 mg PO BID tablet 08/02/19 [Last Taken Unknown] Warfarin Sodium [Coumadin] 3 mg PO [id number] tablet 08/02/19 [Last Taken Unknown] Discharge Plan - Discharge Instructions Activity at Discharge: Increase Activity as Tolerated Diet at Discharge: Diabetic Diet Additional Instructions: Appointment have been scheduled as follows: -Dr. Lassiter on 08/07 at 10:00 at [facility] Endocrinology -Dr. Tsai on Monday, 08/13 at 9:45AM at [facility] Special[facility] -Mani Ricardo at [facility] in [place] Monday, 08/14 at 11:20 -Dr. Lucero on 08/26 at 9:30, arrive at 9:00. Office is located at [facility] [address], [place] [address], phone# Ana from [facility] will call you next week to set up an appointment with your PCP, Catarina Heard NP. Ana's phone # is [phone]. Continue weekly labs as set up with Jeff. Carin Rasheed visiting nursing will see you at home. They will provide supplies and change the dressing on your foot and picc line once per week. They are available 09/01 by phone at [phone]. -Dressings on both picc and foot were changed Mon08/02/19 before you went home. -Right foot dressing change daily to every other day depending on drain age--irrigate with ns, air dry, per dr ga, we are to use 1/4 of the aquacel ag extra and apply a small aquacel foam over the top and wrap with coban to help keep dressing on. Gloria [facility] is providing your IV antibiotics and supplies at home. Melvin can be reached at , or you can reach [facility] with Gloria at [phone]. Quality Measures - Quality Measures Quality Measures: Documentation of Current Medications in Medical Record, Screening for High Blood Pressure and F/U Documented - Current Medications Quality Measure: Measure #130: Documentation of Current Medications Documentation of Current Medications: <Current Medications Documented/Reviewed> [G8427] - Blood Pressure Screening Quality Measure: Screening for High Blood Pressure and Follow-Up Documented Does Patient Have Any of the Following: Active Dx of HTN Blood Pressure Classification: Normal BP Reading Systolic Measurement: 116 Diastolic Measurement: 72 Screening for High Blood Pressure: Patient Exclusion, Hx of HTN [G9744] - Elder Abuse Suspicion Index EASI Reference Information: Mir MORE, Karol C, Sheila D, Marcie Ghosh.Development and validation of a tool to assist physicians identification of elder abuse: The Elder Abuse Suspicion Index (EASI ). Journal of Elder Abuse and Neglect, 2008; 20 (3): 276-300.
== END 2019-08-02 16:00 | disposition home health service (06) | DRG 872 ==
LOC: MEDSURG 16:55
PROVIDERS: ADMIT Internal Medicine; ATTEND Internal Medicine
DX: R78.81 Bacteremia (principal); N17.9 Acute kidney failure, unspecified; A52.16 Charcot's arthropathy (tabetic); E11.621 Type 2 diabetes mellitus with foot ulcer; L97.519 Non-pressure chronic ulcer of other part of right foot with unspecified severity; I10 Essential (primary) hypertension; N28.9 Disorder of kidney and ureter, unspecified; E11.42 Type 2 diabetes mellitus with diabetic polyneuropathy; Z79.4 Long term (current) use of insulin; Z87.891 Personal history of nicotine dependence; Z86.711 Personal history of pulmonary embolism; Z79.01 Long term (current) use of anticoagulants; Z86.718 Personal history of other venous thrombosis and embolism; Z95.4 Presence of other heart-valve replacement
CPT/HCPCS: 36416; 80048; 80053; 82550; 82948; 85025; 85027; 85610; 85651; 86140; 90732; 99306; 99309; 99310; 99316; J0878; J1650